=== PATIENT | female | born 1950 | race Caucasian/White ===

== ENCOUNTER 2017-11-03 14:15 | Inpatient (IN) | payer MEDICARE ==
[~2017-11-03] VITALS: Ht 154.9 cm; Wt 64.9 kg
[2017-11-03] MEDS ORDERED: ONDANSETRON PF 4 MG/2 ML VIAL. IV ONE (14:45)
[2017-11-03 14:58] LABS: BASO # 0.1 x10^3/uL (0.0-0.2); BASO % 1 % (0-3); EOS # 0.1 x10^3/uL (0.0-0.7); EOS % 1 % (0-3); HEMOGLOBIN 14.5 g/dL (12.0-15.5); LYMPH # 1.1 x10^3/uL (1.0-4.8); LYMPH % 9 % (24-48); MEAN CORPUSCULAR HEMOGLOBIN 29 pg (25-35); MEAN CORPUSCULAR HGB CONC 33 g/dL (31-37); MEAN CORPUSCULAR VOLUME 87 fL (79-100); MONO # 0.9 x10^3/uL (0.0-1.1); MONO % 8 % (0-9); NEUT # 9.5 x10^3uL (1.8-7.7); NEUT % 81 % (31-73); PLATELET COUNT 381 x10^3/uL (140-400); RED BLOOD COUNT 5.08 x10^6/uL (3.50-5.40); WHITE BLOOD COUNT 11.8 x10^3/uL (4.0-11.0)
--- NOTE | 2017-11-03 15:44 | RAD ---
3 views left knee 11/03/2017 CLINICAL INDICATION: Fall with left knee pain. COMPARISON: None. FINDINGS: No acute fracture or traumatic malalignment. Normal bony alignment. No significant knee joint effusion. There are tricompartmental degenerative changes, greatest to a moderate to severe degree laterally with joint space narrowing and osteophytosis, moderate degree medially and at the patellofemoral articulation. There is diffuse bony demineralization. IMPRESSION: 1. No acute fracture or traumatic malalignment. 2. Tricompartment degenerative changes, greatest to a moderate to severe degree, laterally. 3. Osteopenia. Electronically signed by: Terrence Herron MD (11/03/2017 3:41 PM) [id number]
--- NOTE | 2017-11-03 15:46 | RAD ---
AP pelvis and 2 views left hip 11/03/2017 Clinical indication: Fall with inability to bear weight. COMPARISON: None. FINDINGS: There is a fracture of the inferior left pubic Ramis. There is cortical irregularity at the inferior margin of the left superior pubic ramus. No diastases of the symphysis pubis or sacroiliac articulations, however somewhat limited due to overlying bowel contents. Left femoral head is round without collapse. Mild left hip osteoarthritis. No evidence of acute left hip fracture or dislocation. Multilevel lower lumbar spondylosis. IMPRESSION: 1. Age-indeterminate left inferior. Ramus fracture and possible nondisplaced fracture of the left superior pubic ramus. If further evaluation is clinically indicated, CT pelvis could be obtained. 2. No radiographic evidence of left hip fracture or traumatic malalignment. Electronically signed by: Terrence Herron MD (11/03/2017 3:43 PM) [id number]
[2017-11-03 15:54] LABS: BACTERIA,URINE MOD /HPF (0-FEW); BILIRUBIN,URINE NEG (NEG); CLARITY,URINE HAZY; COLOR,URINE YELLOW; GLUCOSE,URINE NEG (NEG); NITRITE,URINE NEG (NEG); SQUAMOUS EPITHELIAL CELL,UR FEW /LPF; UROBILINOGEN,URINE 0.2 mg/dL (0.2 mg/dL)
--- NOTE | 2017-11-03 15:58 | RAD ---
CT PELVIS WO CONTRAST Indication: FALL 1 WEEK AGO, UNABLE TO BARE WEIGHT Exposure: One or more of the following individualized dose reduction techniques were utilized for this examination: 1. Automated exposure control 2. Adjustment of the mA and/or kV according to patient size 3. Use of iterative reconstruction technique. Comparison: None are available. Contrast: None Fracture of the greater tuberosity. Minimal displacement, measures 7 mm. No evidence of fracture line through the intertrochanteric region or femoral neck. No other acute fracture identified. Chronic fracture deformities of left inferior and left superior pubic rami. Mild degenerative changes at the hips. Sacroiliac joints are intact. Degenerative spondylosis of the partially visualized spine. Urinary bladder is collapsed around a Alex catheter. Mild retained stool identified at the rectum. IMPRESSION: 1. Mildly displaced posttraumatic fracture of the greater trochanter of the left proximal femur. 2. Old fracture deformities of the left superior and inferior pubic rami. Electronically signed by: Boris Cole MD (11/03/2017 3:55 PM) [facility]
[2017-11-03 16:24] LABS: CALCIUM 9.7 mg/dL (8.5-10.1); CREATININE 1.1 mg/dL (0.6-1.0); GFR 49.7; POTASSIUM 3.8 mmol/L (3.5-5.1)
--- NOTE | 2017-11-03 17:09 | PHYS DOC ---
Past History Past Medical History: No Pertinent History Past Surgical History: No Surgical History, Appendectomy Alcohol Use: None Drug Use: None Adult General Chief Complaint Chief Complaint: LOWEREXTREMITY INJURY HPI HPI Patient is a 67 year old F who presents with inability to walk since a fall about a week ago. She states that she has been unable to bear weight on the left leg since that time. Her is in a wheelchair. She states that over the past week she has been scooting around on the floor while holding onto her 's wheelchair. She states that her more or less drags her while she holds onto her wheelchair. She describes urinary frequency and dysuria over the past week as well. She describes a rash in her perineum as well as a rash under the left breast at a been present over the past week. She has no other associated symptoms at this time. She has no other exacerbating or alleviating factors. History is limited due to Sheri being a very poor historian Review of Systems Review of Systems Constitutional: Denies fever or chills [] Eyes: Denies change in visual acuity, redness, or eye pain [] HENT: Denies nasal congestion or sore throat [] Respiratory: Denies cough or shortness of breath [] Cardiovascular: No additional information not addressed in HPI [] GI: Denies abdominal pain, nausea, vomiting, bloody stools or diarrhea [] : Negative except history of present illness Musculoskeletal: Negative except history of present illness Integument: Negative except history of present illness Neurologic: Denies headache, focal weakness or sensory changes [] Endocrine: Denies polyuria or polydipsia [] All other systems were reviewed and found to be within normal limits, except as documented in this note. Family History Family History No pertinent family medical history was reported Current Medications Current Medications Current Medications Medications (Trade) Dose Ordered Sig/Rustam Start Time Stop Time Status Last Admin Dose Admin Fentanyl Citrate (Fentanyl 2ml Vial) 50 mcg 1X ONCE 11/03/17 14:45 11/03/17 14:46 DC 11/03/17 15:54 50 MCG Ondansetron HCl (Zofran) 4 mg 1X ONCE 11/03/17 14:45 11/03/17 14:46 DC 11/03/17 15:53 4 MG Allergies Allergies Allergies Coded Allergies Type Severity Reaction Last Updated Verified No Known Drug Allergies 07/18/16 No Physical Exam Physical Exam Constitutional: Well developed, well nourished, no acute distress, non-toxic appearance. [] HENT: Normocephalic, atraumatic, Eyes: EOMI, conjunctiva normal, no discharge. [] Neck: Normal range of motion, no tenderness, supple, no stridor. [] Cardiovascular:Heart rate regular rhythm, Lungs & Thorax: Bilateral breath sounds clear to auscultation [] Abdomen: Bowel sounds normal, soft, no tenderness, no masses, no pulsatile masses. [] Skin: Moderate excoriation was noted in the perineum diffusely, moderate weeping erythema with satellite lesions noted under the left breast. Back: No tenderness, no CVA tenderness. [] Extremities: no cyanosis, no clubbing, ROM intact, no edema. Tenderness to palpation over the lateral left hip over the greater tuberosity. Pain with range of motion of the left lower extremity in the knee and hip. Patient unable to bear weight limiting evaluation of gait. Neurologic: Alert and oriented X 3, normal motor function, normal sensory function, no focal deficits noted. [] Psychologic: Affect normal, judgement normal, mood normal. [] Current Patient Data Vital Signs Vital Signs Date Time Temp Pulse Resp B/P (MAP) Pulse Ox O2 Delivery O2 Flow Rate FiO2 11/03/17 16:05 90 20 154/88 (110) 98 Room Air 11/03/17 14:15 98.6 Lab Results Laboratory Tests Test 11/03/17 14:42 11/03/17 15:00 11/03/17 15:57 White Blood Count 11.8 x10^3/uL (4.0-11.0) H Red Blood Count 5.08 x10^6/uL (3.50-5.40) Hemoglobin 14.5 g/dL (12.0-15.5) Hematocrit 44.0 % (36.0-47.0) Mean Corpuscular Volume 87 fL (79-100) Mean Corpuscular Hemoglobin 29 pg (25-35) Mean Corpuscular Hemoglobin Concent 33 g/dL (31-37) Red Cell Distribution Width 15.0 % (11.5-14.5) H Platelet Count 381 x10^3/uL (140-400) Neutrophils (%) (Auto) 81 % (31-73) H Lymphocytes (%) (Auto) 9 % (24-48) L Monocytes (%) (Auto) 8 % (0-9) Eosinophils (%) (Auto) 1 % (0-3) Basophils (%) (Auto) 1 % (0-3) Neutrophils # (Auto) 9.5 x10^3uL (1.8-7.7) H Lymphocytes # (Auto) 1.1 x10^3/uL (1.0-4.8) Monocytes # (Auto) 0.9 x10^3/uL (0.0-1.1) Eosinophils # (Auto) 0.1 x10^3/uL (0.0-0.7) Basophils # (Auto) 0.1 x10^3/uL (0.0-0.2) Urine Collection Type U cath Urine Color Yellow Urine Clarity Hazy Urine pH 5.0 Urine Specific [place] 1.020 Urine Protein Neg (NEG-TRACE) Urine Glucose (UA) Neg mg/dL (NEG) Urine Ketones (Stick) Neg mg/dL (NEG) Urine Blood Small (NEG) Urine Nitrite Neg (NEG) Urine Bilirubin Neg (NEG) Urine Urobilinogen Dipstick 0.2 mg/dL (0.2 mg/dL) Urine Leukocyte Esterase Neg (NEG) Urine RBC 11-20 /HPF (0-2) Urine WBC 1-4 /HPF (0-4) Urine Squamous Epithelial Cells Few /LPF Urine Bacteria Mod /HPF (0-FEW) Urine Mucus Mod /LPF Sodium Level 142 mmol/L (136-145) Potassium Level 3.8 mmol/L (3.5-5.1) Chloride Level 104 mmol/L (98-107) Carbon Dioxide Level 24 mmol/L (21-32) Anion Gap 14 (6-14) Blood Urea Nitrogen 28 mg/dL (7-20) H Creatinine 1.1 mg/dL (0.6-1.0) H Estimated GFR (Cockcroft-Gault) 49.7 Glucose Level 93 mg/dL (70-99) Lactic Acid Level 1.2 mmol/L (0.4-2.0) Calcium Level 9.7 mg/dL (8.5-10.1) Creatine Kinase 29 U/L (26-192) EKG EKG [] Radiology/Procedures Radiology/Procedures [] Impressions: CT pelvis without contrast Fracture of the greater tuberosity. Minimal displacement, measures 7 mm. No evidence of fracture line through the intertrochanteric region or femoral neck. No other acute fracture identified. Chronic fracture deformities of left inferior and left superior pubic rami. Mild degenerative changes at the hips. Sacroiliac joints are intact. Degenerative spondylosis of the partially visualized spine. Urinary bladder is collapsed around a Alex catheter. Mild retained stool identified at the rectum. IMPRESSION: 1. Mildly displaced posttraumatic fracture of the greater trochanter of the left proximal femur. 2. Old fracture deformities of the left superior and inferior pubic rami. L hip xray IMPRESSION: 1. Age-indeterminate left inferior. Ramus fracture and possible nondisplaced fracture of the left superior pubic ramus. If further evaluation is clinically indicated, CT pelvis could be obtained. 2. No radiographic evidence of left hip fracture or traumatic malalignment. L knee xray IMPRESSION: No acute disease Course & Med Decision Making Course & Med Decision Making Pertinent Labs and Imaging studies reviewed. (See chart for details) [] Dragon Disclaimer Dragon Disclaimer This electronic medical record was generated, in whole or in part, using a voice recognition dictation system. Departure Departure: Impression: Primary Impression: Femur fracture, left Additional Impressions: UTI (urinary tract infection) Tinea corporis Disposition: ADMITTED INPATIENT Condition: STABLE Referrals: PCP,NO (PCP) Problem Qualifiers Primary Impression: Femur fracture, left Encounter type: initial encounter Femur location: greater trochanter Fracture type: closed Fracture alignment: nondisplaced Qualified Codes: S72.115A - Nondisplaced fracture of greater trochanter of left femur, initial encounter for closed fracture Additional Impressions: UTI (urinary tract infection) Urinary tract infection type: site unspecified Hematuria presence: with hematuria Qualified Codes: N39.0 - Urinary tract infection, site not specified ; R31.9 - Hematuria, unspecified AMRIK EDWARD MD Nov 03, 2017 17:09
[2017-11-03] MEDS ORDERED: cefTRIAXone IV Push 1 GM VIAL. IVP ONE (17:15)
[2017-11-03] MEDS ORDERED: ONDANSETRON PF 4 MG/2 ML VIAL. IV PRN (17:15)
[2017-11-03 18:24] VITALS: BP 140/82
[2017-11-03 23:00] VITALS: BP 144/77
[2017-11-03] MEDS: traMADol 50 MG TABLET PO PRN (23:43)
[2017-11-04 03:00] VITALS: BP 135/81
[2017-11-04 06:40] LABS: BASO # 0.1 x10^3/uL (0.0-0.2); BASO % 1 % (0-3); EOS # 0.2 x10^3/uL (0.0-0.7); EOS % 3 % (0-3); HEMATOCRIT 38.2 % (36.0-47.0); HEMOGLOBIN 12.6 g/dL (12.0-15.5); LYMPH # 1.3 x10^3/uL (1.0-4.8); LYMPH % 14 % (24-48); MEAN CORPUSCULAR HEMOGLOBIN 29 pg (25-35); MEAN CORPUSCULAR HGB CONC 33 g/dL (31-37); MEAN CORPUSCULAR VOLUME 87 fL (79-100); MONO # 0.8 x10^3/uL (0.0-1.1); MONO % 9 % (0-9); NEUT # 6.6 x10^3uL (1.8-7.7); NEUT % 73 % (31-73); PLATELET COUNT 359 x10^3/uL (140-400); RED CELL DISTRIBUTION WIDTH 14.8 % (11.5-14.5)
[2017-11-04 06:47] LABS: CALCIUM 9.3 mg/dL (8.5-10.1); CREATININE 0.9 mg/dL (0.6-1.0); GFR 62.6; POTASSIUM 3.2 mmol/L (3.5-5.1)
[2017-11-04 07:45] VITALS: BP 99/60
[2017-11-04] MEDS ORDERED: POTASSIUM CHLORIDE 20 MEQ TABLET.ER. PO ONE (08:00)
[2017-11-04 09:01] VITALS: BP 134/78
--- NOTE | 2017-11-04 09:56 | PDOC1 ---
History of Present Illness Reason for Visit: Fall History of Present Illness Pt states that she does not see a regular doctor, and takes no medications. She states she was rearranging the furniture in her living room about 2 weeks ago when she fell and injured her left leg. She says she thought she could "push through it," but eventually wound up not being able to bear weight at all. She has spent the past few days being "scooted around" by her , who is in a wheelchair. She finally came in last night as she could not stand it anymore. She denies fever, CP, SOA, bloody stools, dizziness, vomiting, diarrhea, numbness, or sore throat. She does not get regular medical screenings. She does not take medications regularly. She has never had surgery. Chief Complaint: LOWEREXTREMITY INJURY Allergies: Coded Allergies: No Known Drug Allergies (Unverified , 07/18/16) Past Medical History Cardiac: No pertinent hx GI: No pertinent hx Musculoskeletal: No pertinent hx Past Surgical History: No pertinent history Family History: No pertinent hx Past Social History Smoke: No Alcohol: none Drugs: None Lives: with Family Review of Systems Review Of Systems Fourteen system , review of systems has been reviewed. See HPI for pertinent positives and negative responses, other smith all other systems are negative, non pertinent or non contributory Allergies: Coded Allergies: No Known Drug Allergies (Unverified , 07/18/16) Medications Current Medications Fentanyl Citrate (Fentanyl 2ml Vial) 50 mcg 1X ONCE IV Last administered on at 15:54; Start 11/03/17 at 14:45; Stop 11/03/17 at 14:46; Status DC Ondansetron HCl (Zofran) 4 mg 1X ONCE IV Last administered on 11/03/17at 15:53 ; Start 11/03/17 at 14:45; Stop 11/03/17 at 14:46; Status DC Ceftriaxone Sodium 1 gm/ Sodium Chloride 50 ml @ 100 mls/hr 1X ONCE IV ; Start 11/03/17 at 17:00; Stop 11/03/17 at 17:29; Status UNV Ceftriaxone Sodium (Rocephin) 1 gm 1X ONCE IVP Last administered on 11/03/17at 17:30; Start 11/03/17 at 17:15; Stop 3/21/18 at 17:16; Status DC Ondansetron HCl (Zofran) 4 mg PRN Q4HRS PRN IV NAUSEA/VOMITING; Start 11/03/17 at 17:15; Stop 11/04/17 at 17:14 Tramadol HCl (Ultram) 50 mg PRN Q6HRS PRN PO PAIN Last administered on at 23:43; Start 11/03/17 at 23:15 Potassium Chloride (Klor-Con) 40 meq 1X ONCE PO Last administered on at 08:35; Start 11/04/17 at 08:00; Stop 11/04/17 at 08:01; Status DC Active Scripts Active Reported No Known Medications Prior To Admisstion (Info) Each 1 Each Exam Vital Signs Vital Signs Date Time Temp Pulse Resp B/P (MAP) Pulse Ox O2 Delivery O2 Flow Rate FiO2 11/04/17 09:01 68 20 134/78 (96) 98 Room Air 11/04/17 03:00 96.0 11/03/17 18:24 98.2 General Appearance: Alert, Oriented X3, Cooperative, No acute distress, Other ( [place]) HEENT: Atraumatic, PERRLA, EOMI, Mucous membr. moist/pink, Other (Neck supple, no JVD, no LAD) Respiratory: Clear to auscultation, Normal air movement Heart: Regular rate, Normal S1, Normal S2, No murmurs Abdominal: Normal bowel sounds, Soft, No tenderness, No hepatospenomegaly, No masses Extremities: No edema, Normal pulses, No tenderness/swelling, Other (ROM diminished in LLE) Skin: No rashes (Candidal intertrigo under pannus and left breast. No left breast mass was palpated w/ nurse present.), No breakdown Neuro: Normal speech, Strength at 5/5 X4 ext, Normal tone, Cranial nerves 3-12 NL Psych/Mental Status: Mental status NL, Mood NL Assessment/Plan Assessment/Plan 1. Subacute mildly displaced left greater tuberosity fracture: NWB x 3 weeks minimum. Will need to d/w ortho. Pt will need placement. PT/OT. Pain control. 2. UTI: Cont Rocephin. 3. DVT proph: Heparin. COURSE Allergies Coded Allergies Type Severity Reaction Last Updated Verified No Known Drug Allergies 07/18/16 No Laboratory Tests Test 11/03/17 14:42 11/03/17 15:00 11/03/17 15:57 11/04/17 06:07 White Blood Count 11.8 x10^3/uL (4.0-11.0) 9.0 x10^3/uL (4.0-11.0) Red Blood Count 5.08 x10^6/uL (3.50-5.40) 4.40 x10^6/uL (3.50-5.40) Hemoglobin 14.5 g/dL (12.0-15.5) 12.6 g/dL (12.0-15.5) Hematocrit 44.0 % (36.0-47.0) 38.2 % (36.0-47.0) Mean Corpuscular Volume 87 fL (79-100) 87 fL (79-100) Mean Corpuscular Hemoglobin 29 pg (25-35) 29 pg (25-35) Mean Corpuscular Hemoglobin Concent 33 g/dL (31-37) 33 g/dL (31-37) Red Cell Distribution Width 15.0 % (11.5-14.5) 14.8 % (11.5-14.5) Platelet Count 381 x10^3/uL (140-400) 359 x10^3/uL (140-400) Neutrophils (%) (Auto) 81 % (31-73) 73 % (31-73) Lymphocytes (%) (Auto) 9 % (24-48) 14 % (24-48) Monocytes (%) (Auto) 8 % (0-9) 9 % (0-9) Eosinophils (%) (Auto) 1 % (0-3) 3 % (0-3) Basophils (%) (Auto) 1 % (0-3) 1 % (0-3) Neutrophils # (Auto) 9.5 x10^3uL (1.8-7.7) 6.6 x10^3uL (1.8-7.7) Lymphocytes # (Auto) 1.1 x10^3/uL (1.0-4.8) 1.3 x10^3/uL (1.0-4.8) Monocytes # (Auto) 0.9 x10^3/uL (0.0-1.1) 0.8 x10^3/uL (0.0-1.1) Eosinophils # (Auto) 0.1 x10^3/uL (0.0-0.7) 0.2 x10^3/uL (0.0-0.7) Basophils # (Auto) 0.1 x10^3/uL (0.0-0.2) 0.1 x10^3/uL (0.0-0.2) Urine Collection Type U cath Urine Color Yellow Urine Clarity Hazy Urine pH 5.0 Urine Specific [place] 1.020 Urine Protein Neg (NEG-TRACE) Urine Glucose (UA) Neg mg/dL (NEG) Urine Ketones (Stick) Neg mg/dL (NEG) Urine Blood Small (NEG) Urine Nitrite Neg (NEG) Urine Bilirubin Neg (NEG) Urine Urobilinogen Dipstick 0.2 mg/dL (0.2 mg/dL) Urine Leukocyte Esterase Neg (NEG) Urine RBC 11-20 /HPF (0-2) Urine WBC 1-4 /HPF (0-4) Urine Squamous Epithelial Cells Few /LPF Urine Bacteria Mod /HPF (0-FEW) Urine Mucus Mod /LPF Sodium Level 142 mmol/L (136-145) 141 mmol/L (136-145) Potassium Level 3.8 mmol/L (3.5-5.1) 3.2 mmol/L (3.5-5.1) Chloride Level 104 mmol/L (98-107) 107 mmol/L (98-107) Carbon Dioxide Level 24 mmol/L (21-32) 24 mmol/L (21-32) Anion Gap 14 (6-14) 10 (6-14) Blood Urea Nitrogen 28 mg/dL (7-20) 22 mg/dL (7-20) Creatinine 1.1 mg/dL (0.6-1.0) 0.9 mg/dL (0.6-1.0) Estimated GFR (Cockcroft-Gault) 49.7 62.6 Glucose Level 93 mg/dL (70-99) 81 mg/dL (70-99) Lactic Acid Level 1.2 mmol/L (0.4-2.0) Calcium Level 9.7 mg/dL (8.5-10.1) 9.3 mg/dL (8.5-10.1) Creatine Kinase 29 U/L (26-192) Current Medications Medications (Trade) Dose Ordered Sig/Rustam Route PRN Reason Start Time Stop Time Status Last Admin Dose Admin Fentanyl Citrate (Fentanyl 2ml Vial) 50 mcg 1X ONCE IV 11/03/17 14:45 11/03/17 14:46 DC 11/03/17 15:54 Ondansetron HCl (Zofran) 4 mg 1X ONCE IV 11/03/17 14:45 11/03/17 14:46 DC 11/03/17 15:53 Ceftriaxone Sodium 1 gm/ Sodium Chloride 50 ml @ 100 mls/hr 1X ONCE IV 11/03/17 17:00 11/03/17 17:29 UNV Ceftriaxone Sodium (Rocephin) 1 gm 1X ONCE IVP 11/03/17 17:15 11/03/17 17:16 DC 11/03/17 17:30 Ondansetron HCl (Zofran) 4 mg PRN Q4HRS PRN IV NAUSEA/VOMITING 11/03/17 17:15 11/04/17 17:14 Tramadol HCl (Ultram) 50 mg PRN Q6HRS PRN PO PAIN 11/03/17 23:15 11/03/17 23:43 Potassium Chloride (Klor-Con) 40 meq 1X ONCE PO 11/04/17 08:00 11/04/17 08:01 DC 11/04/17 08:35 I & O 11/04/17 00:00 Intake Total 720 ml Balance 720 ml Vital Signs Date Time Temp Pulse Resp B/P (MAP) Pulse Ox O2 Delivery O2 Flow Rate FiO2 11/04/17 09:01 68 20 134/78 (96) 98 Room Air 11/04/17 03:00 96.0 11/03/17 18:[address] PELVIS WO CONTRAST Indication: FALL 1 WEEK AGO, UNABLE TO BARE WEIGHT Exposure: One or more of the following individualized dose reduction techniques were utilized for this examination: 1. Automated exposure control 2. Adjustment of the mA and/or kV according to patient size 3. Use of iterative reconstruction technique. Comparison: None are available. Contrast: None Fracture of the greater tuberosity. Minimal displacement, measures 7 mm. No evidence of fracture line through the intertrochanteric region or femoral neck. No other acute fracture identified. Chronic fracture deformities of left inferior and left superior pubic rami. Mild degenerative changes at the hips. Sacroiliac joints are intact. Degenerative spondylosis of the partially visualized spine. Urinary bladder is collapsed around a Alex catheter. Mild retained stool identified at the rectum. IMPRESSION: 1. Mildly displaced posttraumatic fracture of the greater trochanter of the left proximal femur. 2. Old fracture deformities of the left superior and inferior pubic rami. 3 views left knee 11/03/2017 CLINICAL INDICATION: Fall with left knee pain. COMPARISON: None. FINDINGS: No acute fracture or traumatic malalignment. Normal bony alignment. No significant knee joint effusion. There are tricompartmental degenerative changes, greatest to a moderate to severe degree laterally with joint space narrowing and osteophytosis, moderate degree medially and at the patellofemoral articulation. There is diffuse bony demineralization. IMPRESSION: 1. No acute fracture or traumatic malalignment. 2. Tricompartment degenerative changes, greatest to a moderate to severe degree, laterally. 3. Osteopenia. AP pelvis and 2 views left hip 11/03/2017 Clinical indication: Fall with inability to bear weight. COMPARISON: None. FINDINGS: There is a fracture of the inferior left pubic Ramis. There is cortical irregularity at the inferior margin of the left superior pubic ramus. No diastases of the symphysis pubis or sacroiliac articulations, however somewhat limited due to overlying bowel contents. Left femoral head is round without collapse. Mild left hip osteoarthritis. No evidence of acute left hip fracture or dislocation. Multilevel lower lumbar spondylosis. IMPRESSION: 1. Age-indeterminate left inferior. Ramus fracture and possible nondisplaced fracture of the left superior pubic ramus. If further evaluation is clinically indicated, CT pelvis could be obtained. 2. No radiographic evidence of left hip fracture or traumatic malalignment. CHINA POLO MD Nov 04, 2017 09:56
[2017-11-04] MEDS: traMADol 50 MG TABLET PO PRN ×2 (10:38→19:04)
[2017-11-04 15:08] VITALS: BP 168/78
[2017-11-04] MEDS: cefTRIAXone IV Push 1 GM VIAL. IVP SCH (19:56)
[2017-11-04] MEDS: NYSTATIN 100,000 UNIT/GM TOPICAL CREAM 15GM TUBE. TP SCH (21:24)
[2017-11-04] MEDS: LACTOBACILLUS RHAMNOSUS GG 1 CAPSULE. PO SCH (21:24)
[2017-11-04] MEDS: HEPARIN PF for SUB-Q USE 5,000 UNIT/0.5 ML VIAL. SQ SCH (21:25)
[2017-11-04 22:15] VITALS: BP 127/73
[2017-11-05 06:46] LABS: CALCIUM 9.3 mg/dL (8.5-10.1); CREATININE 0.9 mg/dL (0.6-1.0); GFR 62.6; POTASSIUM 3.7 mmol/L (3.5-5.1)
[2017-11-05 08:00] VITALS: BP 160/82
[2017-11-05] MEDS: LACTOBACILLUS RHAMNOSUS GG 1 CAPSULE. PO SCH ×2 (08:14→20:11)
[2017-11-05] MEDS: traMADol 50 MG TABLET PO PRN ×2 (08:14→17:52)
[2017-11-05] MEDS: HEPARIN PF for SUB-Q USE 5,000 UNIT/0.5 ML VIAL. SQ SCH ×2 (08:21→20:13)
[2017-11-05] MEDS: NYSTATIN 100,000 UNIT/GM TOPICAL CREAM 15GM TUBE. TP SCH ×2 (08:23→20:20)
--- NOTE | 2017-11-05 15:07 | PDOC ---
PROGRESS NOTES Diagnosis Problem Assessment 1. Subacute mildly displaced (7 mm) left greater tuberosity fracture: NWB x 3 weeks minimum. Will need to d/w ortho. Pt will need placement. PT/OT. Pain control. 2. UTI: Cont Rocephin. 3. DVT proph: Heparin. 4. Disp: Pt will ultimately need SNF for rehab as there is no way she can adequately get around at home, and would be at high risk for requiring surgery. Problems: Plan of Care: see other orders Subjective Pt feeling ok. States she is working w/ PT on not bearing weight. Denies fever , diarrhea, dizziness, SOA, chest pain, or leg swelling. Pt has been talking to her about possibly going to a rehab facility for rehab. Objective Vital Signs Date Time Temp Pulse Resp B/P (MAP) Pulse Ox O2 Delivery O2 Flow Rate FiO2 11/05/17 09:39 94 Room Air 11/05/17 08:00 71 160/82 (108) 11/04/17 22:15 20 11/04/17 03:00 11/03/17 18:24 98.2 Intake and Output 11/05/17 07:00 Intake Total 1100 ml Output Total 400 ml Balance 700 ml Intake Oral 1100 ml Output Urine Total 400 ml # Voids 2 Heart: Regular rate, Normal S1, Normal S2, No murmurs Extremities: No edema General: Alert, Oriented X3, Cooperative, No acute distress HEENT: PERRLA, EOMI, Mucous membr. moist/pink Lungs: Clear to auscultation, Normal air movement Neck: No JVD, No LAD Neuro: Normal tone, Cranial nerves 3-12 NL Psych/Mental Status: Mental status NL Review of Relevant I have reviewed the following items angel (where applicable) has been applied. Labs Laboratory Tests Test 11/03/17 15:00 11/03/17 15:57 11/03/17 18:30 11/04/17 06:07 Urine Collection Type U cath Urine Color Yellow Urine Clarity Hazy Urine pH 5.0 Urine Specific Mustang 1.020 Urine Protein Neg (NEG-TRACE) Urine Glucose (UA) Neg mg/dL (NEG) Urine Ketones (Stick) Neg mg/dL (NEG) Urine Blood Small (NEG) Urine Nitrite Neg (NEG) Urine Bilirubin Neg (NEG) Urine Urobilinogen Dipstick 0.2 mg/dL (0.2 mg/dL) Urine Leukocyte Esterase Neg (NEG) Urine RBC 11-20 /HPF (0-2) Urine WBC 1-4 /HPF (0-4) Urine Squamous Epithelial Cells Few /LPF Urine Bacteria Mod /HPF (0-FEW) Urine Mucus Mod /LPF Sodium Level 142 mmol/L (136-145) 141 mmol/L (136-145) Potassium Level 3.8 mmol/L (3.5-5.1) 3.2 mmol/L (3.5-5.1) Chloride Level 104 mmol/L (98-107) 107 mmol/L (98-107) Carbon Dioxide Level 24 mmol/L (21-32) 24 mmol/L (21-32) Anion Gap 14 (6-14) 10 (6-14) Blood Urea Nitrogen 28 mg/dL (7-20) 22 mg/dL (7-20) Creatinine 1.1 mg/dL (0.6-1.0) 0.9 mg/dL (0.6-1.0) Estimated GFR (Cockcroft-Gault) 49.7 62.6 Glucose Level 93 mg/dL (70-99) 81 mg/dL (70-99) Lactic Acid Level 1.2 mmol/L (0.4-2.0) Calcium Level 9.7 mg/dL (8.5-10.1) 9.3 mg/dL (8.5-10.1) Creatine Kinase 29 U/L (26-192) Nasal Screen MRSA (PCR) Negative (Negative) White Blood Count 9.0 x10^3/uL (4.0-11.0) Red Blood Count 4.40 x10^6/uL (3.50-5.40) Hemoglobin 12.6 g/dL (12.0-15.5) Hematocrit 38.2 % (36.0-47.0) Mean Corpuscular Volume 87 fL (79-100) Mean Corpuscular Hemoglobin 29 pg (25-35) Mean Corpuscular Hemoglobin Concent 33 g/dL (31-37) Red Cell Distribution Width 14.8 % (11.5-14.5) Platelet Count 359 x10^3/uL (140-400) Neutrophils (%) (Auto) 73 % (31-73) Lymphocytes (%) (Auto) 14 % (24-48) Monocytes (%) (Auto) 9 % (0-9) Eosinophils (%) (Auto) 3 % (0-3) Basophils (%) (Auto) 1 % (0-3) Neutrophils # (Auto) 6.6 x10^3uL (1.8-7.7) Lymphocytes # (Auto) 1.3 x10^3/uL (1.0-4.8) Monocytes # (Auto) 0.8 x10^3/uL (0.0-1.1) Eosinophils # (Auto) 0.2 x10^3/uL (0.0-0.7) Basophils # (Auto) 0.1 x10^3/uL (0.0-0.2) Test 11/05/17 05:52 Sodium Level 141 mmol/L (136-145) Potassium Level 3.7 mmol/L (3.5-5.1) Chloride Level 105 mmol/L (98-107) Carbon Dioxide Level 28 mmol/L (21-32) Anion Gap 8 (6-14) Blood Urea Nitrogen 19 mg/dL (7-20) Creatinine 0.9 mg/dL (0.6-1.0) Estimated GFR (Cockcroft-Gault) 62.6 Glucose Level 79 mg/dL (70-99) Calcium Level 9.3 mg/dL (8.5-10.1) Microbiology 11/03/17 Blood Culture - Preliminary, Resulted NO GROWTH AFTER 1 DAY Medications Current Medications Fentanyl Citrate (Fentanyl 2ml Vial) 50 mcg 1X ONCE IV Last administered on at 15:54; Start 11/03/17 at 14:45; Stop 11/03/17 at 14:46; Status DC Ondansetron HCl (Zofran) 4 mg 1X ONCE IV Last administered on 11/03/17at 15:53 ; Start 11/03/17 at 14:45; Stop 11/03/17 at 14:46; Status DC Ceftriaxone Sodium 1 gm/ Sodium Chloride 50 ml @ 100 mls/hr 1X ONCE IV ; Start 11/03/17 at 17:00; Stop 11/03/17 at 17:29; Status UNV Ceftriaxone Sodium (Rocephin) 1 gm 1X ONCE IVP Last administered on 11/03/17at 17:30; Start 11/03/17 at 17:15; Stop 11/03/17 at 17:16; Status DC Ondansetron HCl (Zofran) 4 mg PRN Q4HRS PRN IV NAUSEA/VOMITING; Start 11/03/17 at 17:15; Stop 11/04/17 at 17:14; Status DC Tramadol HCl (Ultram) 50 mg PRN Q6HRS PRN PO PAIN Last administered on at 08:14; Start 11/03/17 at 23:15 Potassium Chloride (Klor-Con) 40 meq 1X ONCE PO Last administered on at 08:35; Start 11/04/17 at 08:00; Stop 11/04/17 at 08:01; Status DC Heparin Sodium (Porcine) (Heparin Sq) 5,000 unit Q12HR SQ Last administered on 11/05/17at 08:21; Start 11/04/17 at 21:00 Nystatin (Mycostatin) 1 eric BID TP Last administered on 11/04/17at 21:24; Start 11/04/17 at 21:00 Ceftriaxone Sodium 1 gm/ Sodium Chloride 50 ml @ 100 mls/hr Q24H IV ; Start at 18:45; Stop 11/04/17 at 18:46; Status DC Ceftriaxone Sodium (Rocephin) 1 gm Q24H IVP Last administered on 11/04/17at 19: 56; Start 11/04/17 at 19:00 Lactobacillus Rhamnosus (Culturelle) 1 cap BID PO Last administered on at 08:14; Start 11/04/17 at 21:00 Active Scripts Active Reported No Known Medications Prior To Admisstion (Info) Each 1 Each Vitals/I & O Vital Sign - Last 24 Hours 11/04/17 11/04/17 11/04/17 11/04/17 15:08 19:04 20:00 20:04 Pulse 78 Resp 20 18 B/P (MAP) 168/78 (108) Pulse Ox 98 O2 Delivery Room Air Room Air Room Air 11/04/17 11/05/17 11/05/17 11/05/17 22:15 08:00 08:00 09:39 Pulse 64 71 Resp 20 B/P (MAP) 127/73 (91) 160/82 (108) Pulse Ox 97 94 94 O2 Delivery Room Air Room Air Room Air Room Air Intake and Output 11/04/17 11/04/17 11/05/17 15:00 23:00 07:00 Intake Total 980 ml 120 ml Output Total 400 ml Balance 580 ml 120 ml CHINA POLO MD Nov 05, 2017 15:07
[2017-11-05 17:49] VITALS: BP 149/82
[2017-11-05] MEDS: cefTRIAXone IV Push 1 GM VIAL. IVP SCH (18:03)
[2017-11-05 23:43] VITALS: BP 132/75
[2017-11-06] MEDS: traMADol 50 MG TABLET PO PRN ×2 (05:04→14:17)
[2017-11-06 05:31] VITALS: BP 162/83
[2017-11-06] MEDS: LACTOBACILLUS RHAMNOSUS GG 1 CAPSULE. PO SCH ×2 (08:18→20:29)
[2017-11-06] MEDS: HEPARIN PF for SUB-Q USE 5,000 UNIT/0.5 ML VIAL. SQ SCH ×2 (08:24→20:35)
[2017-11-06] MEDS: NYSTATIN 100,000 UNIT/GM TOPICAL CREAM 15GM TUBE. TP SCH ×2 (08:25→20:36)
[2017-11-06 10:22] VITALS: BP 146/86
--- NOTE | 2017-11-06 12:13 | PDOC ---
PROGRESS NOTES Assessment 1. Subacute mildly displaced (7 mm) left greater tuberosity fracture: NWB x 3 weeks minimum. Pt improving significantly. Needs placement to complete rehab. Hoping for transfer Wednesday. Cont PT and pain meds. 2. UTI: Cont Rocephin. 3. DVT proph: Heparin. 4. Constipation: Start Colace BID 5. Candidal intertrigo: Cont nystatin 6. Disp: Pt will ultimately need SNF for rehab as there is no way she can adequately get around at home, and would be at high risk for requiring surgery. Problems: Plan of Care: see other orders Subjective Pt states her pain in the leg is doing much better. Says she has not had a BM in 3-4 days. Denies vomiting, abd pain, bleeding, SOA, chest pain, fever, blood in urine. Says rash under breast is improving. Objective Vital Signs Date Time Temp Pulse Resp B/P (MAP) Pulse Ox O2 Delivery O2 Flow Rate FiO2 11/06/17 10:22 98.2 65 18 146/86 (106) 94 Room Air 11/04/17 03:00 Intake and Output 11/06/17 07:00 Intake Total 250 ml Balance 250 ml Intake Oral 250 ml # Voids 1 Abdomen: Soft, No tenderness, No hepatospenomegaly, No masses Heart: Regular rate, Normal S1, Normal S2, No murmurs Extremities: No edema, No tenderness/swelling General: Alert, Oriented X3, Cooperative, No acute distress HEENT: Atraumatic, PERRLA, EOMI, Mucous membr. moist/pink Lungs: Clear to auscultation, Normal air movement Neck: No JVD Neuro: Normal tone, Cranial nerves 3-12 NL Psych/Mental Status: Mental status NL, Mood NL Review of Relevant I have reviewed the following items angel (where applicable) has been applied. Labs Laboratory Tests Test 11/05/17 05:52 Sodium Level 141 mmol/L (136-145) Potassium Level 3.7 mmol/L (3.5-5.1) Chloride Level 105 mmol/L (98-107) Carbon Dioxide Level 28 mmol/L (21-32) Anion Gap 8 (6-14) Blood Urea Nitrogen 19 mg/dL (7-20) Creatinine 0.9 mg/dL (0.6-1.0) Estimated GFR (Cockcroft-Gault) 62.6 Glucose Level 79 mg/dL (70-99) Calcium Level 9.3 mg/dL (8.5-10.1) Microbiology 11/03/17 Blood Culture - Preliminary, Resulted NO GROWTH AFTER 2 DAYS Medications Current Medications Fentanyl Citrate (Fentanyl 2ml Vial) 50 mcg 1X ONCE IV Last administered on at 15:54; Start 11/03/17 at 14:45; Stop 11/03/17 at 14:46; Status DC Ondansetron HCl (Zofran) 4 mg 1X ONCE IV Last administered on 11/03/17at 15:53 ; Start 11/03/17 at 14:45; Stop 11/03/17 at 14:46; Status DC Ceftriaxone Sodium 1 gm/ Sodium Chloride 50 ml @ 100 mls/hr 1X ONCE IV ; Start 11/03/17 at 17:00; Stop 11/03/17 at 17:29; Status UNV Ceftriaxone Sodium (Rocephin) 1 gm 1X ONCE IVP Last administered on 11/03/17at 17:30; Start 11/03/17 at 17:15; Stop 11/03/17 at 17:16; Status DC Ondansetron HCl (Zofran) 4 mg PRN Q4HRS PRN IV NAUSEA/VOMITING; Start 11/03/17 at 17:15; Stop 11/04/17 at 17:14; Status DC Tramadol HCl (Ultram) 50 mg PRN Q6HRS PRN PO PAIN Last administered on at 05:04; Start 11/03/17 at 23:15 Potassium Chloride (Klor-Con) 40 meq 1X ONCE PO Last administered on at 08:35; Start 11/04/17 at 08:00; Stop 11/04/17 at 08:01; Status DC Heparin Sodium (Porcine) (Heparin Sq) 5,000 unit Q12HR SQ Last administered on 11/06/17at 08:24; Start 11/04/17 at 21:00 Nystatin (Mycostatin) 1 eric BID TP Last administered on 11/06/17at 08:25; Start 11/04/17 at 21:00 Ceftriaxone Sodium 1 gm/ Sodium Chloride 50 ml @ 100 mls/hr Q24H IV ; Start at 18:45; Stop 11/04/17 at 18:46; Status DC Ceftriaxone Sodium (Rocephin) 1 gm Q24H IVP Last administered on 11/05/17at 18: 03; Start 11/04/17 at 19:00 Lactobacillus Rhamnosus (Culturelle) 1 cap BID PO Last administered on at 08:18; Start 11/04/17 at 21:00 Active Scripts Active Reported No Known Medications Prior To Admisstion (Info) Each 1 Each Vitals/I & O Vital Sign - Last 24 Hours 11/05/17 11/05/17 11/05/17 11/05/17 17:49 17:52 20:00 23:43 Temp 97.7 97.6 Pulse 89 68 Resp 18 20 B/P (MAP) 149/82 (104) 132/75 (94) Pulse Ox 97 97 94 O2 Delivery Room Air Room Air Room Air 11/06/17 11/06/17 11/06/17 11/06/17 05:04 05:31 06:27 08:00 Temp 98.2 Pulse 82 Resp 18 18 18 B/P (MAP) 162/83 (109) Pulse Ox 94 98 98 O2 Delivery Room Air Room Air Room Air 11/06/17 10:22 Temp 98.2 Pulse 65 Resp 18 B/P (MAP) 146/86 (106) Pulse Ox 94 O2 Delivery Room Air Intake and Output 11/05/17 11/05/17 11/06/17 15:00 23:00 07:00 Intake Total 100 ml 150 ml Balance 100 ml 150 ml CHINA POLO MD Nov 06, 2017 12:13
[2017-11-06 14:39] VITALS: BP 156/88
[2017-11-06] MEDS ORDERED: HYDROcodone/APAP 5/325MG 1 TAB TABLET PO PRN (15:30)
--- NOTE | 2017-11-06 16:19 | RAD ---
Exam performed: One view pelvis and 2 views left hip HISTORY: Patient fell 2 weeks ago, increasing pain to the left hip. DATE OF SERVICE: 11/06/2017. Comparison made to a CT pelvis from 11/03/2017. FINDINGS: Normal alignment of both hip joints is preserved. Previously seen acute fracture left greater trochanter is less well seen on the x-rays. There is a nonacute fracture left superior and inferior pubic rami. No soft tissue foreign body. IMPRESSION: Fracture greater trochanter seen on the CT scan is less well seen on the current exam. Nonacute fracture left superior and inferior pubic rami. Electronically signed by: Areli Leyva MD (11/06/2017 4:16 PM) [facility]
[2017-11-06] MEDS: cefTRIAXone IV Push 1 GM VIAL. IVP SCH (17:58)
[2017-11-06 19:53] VITALS: BP 144/88
[2017-11-06] MEDS: DOCUSATE SODIUM 100 MG CAPSULE PO SCH (20:29)
[2017-11-07] MEDS: traMADol 50 MG TABLET PO PRN ×2 (05:28→16:48)
[2017-11-07 06:36] VITALS: BP 157/86
[2017-11-07] MEDS: NYSTATIN 100,000 UNIT/GM TOPICAL CREAM 15GM TUBE. TP SCH ×2 (08:11→20:15)
[2017-11-07] MEDS: DOCUSATE SODIUM 100 MG CAPSULE PO SCH ×2 (08:11→20:13)
[2017-11-07] MEDS: LACTOBACILLUS RHAMNOSUS GG 1 CAPSULE. PO SCH ×2 (08:11→20:13)
[2017-11-07] MEDS: HEPARIN PF for SUB-Q USE 5,000 UNIT/0.5 ML VIAL. SQ SCH ×2 (08:14→20:13)
--- NOTE | 2017-11-07 09:29 | PDOC ---
PROGRESS NOTES Assessment 1. Subacute mildly displaced (7 mm) left greater tuberosity fracture: NWB x 3 weeks minimum. Pt improving significantly. Needs placement to complete rehab. Hoping for transfer Wednesday. Increased pain yesterday has resolved, xray unchanged, will d/c hydrocodone. 2. UTI: Cont Rocephin. Will d/c at discharge. 3. DVT proph: Heparin. 4. Constipation: Colace. 5. Candidal intertrigo: Cont nystatin 6. Disp: Pt will ultimately need SNF for rehab as there is no way she can adequately get around at home, and would be at high risk for requiring surgery. Problems: Plan of Care: see other orders Subjective Pt states her pain is doing much better today, rates it at 08/25. Says she has not been taking the hydrocodone, only tramadol. Says she is otherwise doing well and looking forward to going to SNF tomorrow. Objective Vital Signs Date Time Temp Pulse Resp B/P (MAP) Pulse Ox O2 Delivery O2 Flow Rate FiO2 11/07/17 08:00 Room Air 11/07/17 06:36 98.0 75 18 157/86 (109) 100 11/04/17 03:00 Intake and Output 11/07/17 07:00 Intake Total 960 ml Output Total 300 ml Balance 660 ml Intake Oral 960 ml Output Urine Total 300 ml # Voids 1 Abdomen: Soft, No tenderness, No hepatospenomegaly, No masses Heart: Regular rate, Normal S1, Normal S2, No murmurs Extremities: No edema, Normal pulses General: Alert, Oriented X3, Cooperative, No acute distress HEENT: PERRLA, EOMI, Mucous membr. moist/pink Lungs: Clear to auscultation, Normal air movement Neck: No JVD Neuro: Normal speech, Normal tone, Cranial nerves 3-12 NL Psych/Mental Status: Mental status NL, Mood NL Skin: No rashes Review of Relevant I have reviewed the following items angel (where applicable) has been applied. Labs Microbiology 11/03/17 Blood Culture - Preliminary, Resulted NO GROWTH AFTER 3 DAYS Medications Current Medications Fentanyl Citrate (Fentanyl 2ml Vial) 50 mcg 1X ONCE IV Last administered on at 15:54; Start 11/03/17 at 14:45; Stop 11/03/17 at 14:46; Status DC Ondansetron HCl (Zofran) 4 mg 1X ONCE IV Last administered on 11/03/17at 15:53 ; Start 11/03/17 at 14:45; Stop 11/03/17 at 14:46; Status DC Ceftriaxone Sodium 1 gm/ Sodium Chloride 50 ml @ 100 mls/hr 1X ONCE IV ; Start 11/03/17 at 17:00; Stop 11/03/17 at 17:29; Status UNV Ceftriaxone Sodium (Rocephin) 1 gm 1X ONCE IVP Last administered on 11/03/17at 17:30; Start 11/03/17 at 17:15; Stop 11/03/17 at 17:16; Status DC Ondansetron HCl (Zofran) 4 mg PRN Q4HRS PRN IV NAUSEA/VOMITING; Start 11/03/17 at 17:15; Stop 11/04/17 at 17:14; Status DC Tramadol HCl (Ultram) 50 mg PRN Q6HRS PRN PO PAIN Last administered on at 05:28; Start 11/03/17 at 23:15 Potassium Chloride (Klor-Con) 40 meq 1X ONCE PO Last administered on at 08:35; Start 11/04/17 at 08:00; Stop 11/04/17 at 08:01; Status DC Heparin Sodium (Porcine) (Heparin Sq) 5,000 unit Q12HR SQ Last administered on 11/07/17at 08:14; Start 11/04/17 at 21:00 Nystatin (Mycostatin) 1 eric BID TP Last administered on 11/07/17at 08:11; Start 11/04/17 at 21:00 Ceftriaxone Sodium 1 gm/ Sodium Chloride 50 ml @ 100 mls/hr Q24H IV ; Start at 18:45; Stop 11/04/17 at 18:46; Status DC Ceftriaxone Sodium (Rocephin) 1 gm Q24H IVP Last administered on 11/06/17at 17: 58; Start 11/04/17 at 19:00 Lactobacillus Rhamnosus (Culturelle) 1 cap BID PO Last administered on at 08:11; Start 11/04/17 at 21:00 Docusate Sodium (Colace) 100 mg BID PO Last administered on 11/07/17at 08:11; Start 11/06/17 at 21:00 Acetaminophen/ Hydrocodone Bitart (Lortab 5/325) 1 tab PRN Q6HRS PRN PO PAIN Last administered on 11/06/17at 16:12; Start 11/06/17 at 15:30 Active Scripts Active Reported No Known Medications Prior To Admisstion (Info) Each 1 Each Vitals/I & O Vital Sign - Last 24 Hours 11/06/17 11/06/17 11/06/17 11/06/17 10:22 14:39 19:53 20:00 Temp 98.2 98.1 98.2 Pulse 65 73 69 Resp 18 20 20 B/P (MAP) 146/86 (106) 156/88 (110) 144/88 (106) Pulse Ox 94 96 96 O2 Delivery Room Air Room Air Room Air 11/07/17 11/07/17 11/07/17 11/07/17 05:28 06:36 06:36 08:00 Temp 98.0 Pulse 75 Resp 22 20 18 B/P (MAP) 157/86 (109) Pulse Ox 96 100 O2 Delivery Room Air Room Air Room Air Intake and Output 11/06/17 11/06/17 11/07/17 15:00 23:00 07:00 Intake Total 600 ml 360 ml 0 ml Output Total 300 ml Balance 300 ml 360 ml 0 ml Images Exam performed: One view pelvis and 2 views left hip HISTORY: Patient fell 2 weeks ago, increasing pain to the left hip. DATE OF SERVICE: 11/06/2017. Comparison made to a CT pelvis from 11/03/2017. FINDINGS: Normal alignment of both hip joints is preserved. Previously seen acute fracture left greater trochanter is less well seen on the x-rays. There is a nonacute fracture left superior and inferior pubic rami. No soft tissue foreign body. IMPRESSION: Fracture greater trochanter seen on the CT scan is less well seen on the current exam. Nonacute fracture left superior and inferior pubic rami. CHINA POLO MD Nov 07, 2017 09:29
[2017-11-07 15:26] VITALS: BP 135/82
[2017-11-07] MEDS: cefTRIAXone IV Push 1 GM VIAL. IVP SCH (18:02)
[2017-11-07] MEDS: HYDROcodone/APAP 5/325MG 1 TAB TABLET PO PRN (19:14)
[2017-11-07 19:29] VITALS: BP 162/93
--- NOTE | 2017-11-07 22:37 | PDOC3 ---
Discharge Summary Visit Information Date of Admission: Nov 03, 2017 Date of Discharge: Nov 08, 2017 Admitting Diagnosis: Left trochanter fracture, UTI Final Diagnosis Problems Medical Problems: (1) Femur fracture, left Status: Acute (2) Tinea corporis Status: Acute (3) UTI (urinary tract infection) Status: Acute Problems: Brief Hospital Course Allergies Allergies Coded Allergies Type Severity Reaction Last Updated Verified No Known Drug Allergies 07/18/16 No Vital Signs Vital Signs Date Time Temp Pulse Resp B/P (MAP) Pulse Ox O2 Delivery O2 Flow Rate FiO2 11/07/17 20:18 96 Room Air 11/07/17 19:29 98.5 77 20 162/93 (116) 11/04/17 03:00 Brief Hospital Course Ms. Malik is a 67 old female who presented w/ two non-displaced pelvic fractures and a mildly (7mm) displaced greater tuberosity fracture of the left femur. She also had a UTI, treated adequately w/ Rocephin, and candidal intertrigo, treated w/ Nystatin. Pt is advised to have 3-4 weeks of NWB status to allow left hip to heal. She has been treated adequately w/ hydrocodone for pain. Colace for constipation. Pt is going to transfer to [facility] [place] on [place]/08 to complete her rehab. Discharge Information Condition at Discharge: Stable Disposition/Orders: D/C to Another Facility (SNF) Dischare Medications Current Medications Fentanyl Citrate (Fentanyl 2ml Vial) 50 mcg 1X ONCE IV Last administered on at 15:54; Start 11/03/17 at 14:45; Stop 11/03/17 at 14:46; Status DC Ondansetron HCl (Zofran) 4 mg 1X ONCE IV Last administered on 11/03/17at 15:53 ; Start 11/03/17 at 14:45; Stop 11/03/17 at 14:46; Status DC Ceftriaxone Sodium 1 gm/ Sodium Chloride 50 ml @ 100 mls/hr 1X ONCE IV ; Start 11/03/17 at 17:00; Stop 11/03/17 at 17:29; Status UNV Ceftriaxone Sodium (Rocephin) 1 gm 1X ONCE IVP Last administered on 11/03/17at 17:30; Start 11/03/17 at 17:15; Stop 11/03/17 at 17:16; Status DC Ondansetron HCl (Zofran) 4 mg PRN Q4HRS PRN IV NAUSEA/VOMITING; Start 11/03/17 at 17:15; Stop 11/04/17 at 17:14; Status DC Tramadol HCl (Ultram) 50 mg PRN Q6HRS PRN PO PAIN Last administered on 16:48; Start 11/03/17 at 23:15; Stop 11/07/17 at 18:50; Status DC Potassium Chloride (Klor-Con) 40 meq 1X ONCE PO Last administered on at 08:35; Start 11/04/17 at 08:00; Stop 11/04/17 at 08:01; Status DC Heparin Sodium (Porcine) (Heparin Sq) 5,000 unit Q12HR SQ Last administered on 11/07/17 20:13; Start 11/04/17 at 21:00 Nystatin (Mycostatin) 1 eric BID TP Last administered on 11/07/17 20:15; Start 11/04/17 at 21:00 Ceftriaxone Sodium 1 gm/ Sodium Chloride 50 ml @ 100 mls/hr Q24H IV ; Start at 18:45; Stop 11/04/17 at 18:46; Status DC Ceftriaxone Sodium (Rocephin) 1 gm Q24H IVP Last administered on 11/07/17 18: 02; Start 11/04/17 at 19:00 Lactobacillus Rhamnosus (Culturelle) 1 cap BID PO Last administered on 20:13; Start 11/04/17 at 21:00 Docusate Sodium (Colace) 100 mg BID PO Last administered on 11/07/17 20:13; Start 11/06/17 at 21:00 Acetaminophen/ Hydrocodone Bitart (Lortab 5/325) 1 tab PRN Q6HRS PRN PO PAIN Last administered on 11/06/17 16:12; Start 11/06/17 at 15:30; Stop 11/07/17 at 09:26; Status DC Acetaminophen/ Hydrocodone Bitart (Lortab 5/325) 1 tab PRN Q6HRS PRN PO PAIN Last administered on 11/07/17at 19:14; Start 11/07/17 at 19:00 Active Scripts Active Reported No Known Medications Prior To Admisstion (Info) Each 1 Each Patient Instructions Patient Instuctions PT/OT per SNF See MRAD Regular diet Activity per PT CHINA POLO MD Nov 07, 2017 22:37
[2017-11-08 06:00] VITALS: BP 154/82
[2017-11-08] MEDS: HYDROcodone/APAP 5/325MG 1 TAB TABLET PO PRN (07:32)
[2017-11-08] MEDS: NYSTATIN 100,000 UNIT/GM TOPICAL CREAM 15GM TUBE. TP SCH (08:28)
[2017-11-08] MEDS: LACTOBACILLUS RHAMNOSUS GG 1 CAPSULE. PO SCH (08:28)
[2017-11-08] MEDS: DOCUSATE SODIUM 100 MG CAPSULE PO SCH (08:28)
[2017-11-08] MEDS: HEPARIN PF for SUB-Q USE 5,000 UNIT/0.5 ML VIAL. SQ SCH (08:33)
== END 2017-11-08 10:29 | DRG 536 ==
LOC: ER 14:15 → ICU 17:00 → OBSVTOIN 18:32 → 1 SOUTH 11-05 17:38
PROVIDERS: ADMIT Family Medicine; ATTEND Family Medicine
DX: S72.112A Displaced fracture of greater trochanter of left femur, initial encounter for closed fracture (principal); B35.4 Tinea corporis; B37.2 Candidiasis of skin and nail; K59.00 Constipation, unspecified; M85.80 Other specified disorders of bone density and structure, unspecified site; N39.0 Urinary tract infection, site not specified; W18.39XA Other fall on same level, initial encounter; Z91.81 History of falling; Y93.89 Activity, other specified; Y92.098 Other place in other non-institutional residence as the place of occurrence of the external cause; Y99.8 Other external cause status; Z87.81 Personal history of (healed) traumatic fracture; Z90.49 Acquired absence of other specified parts of digestive tract
CPT/HCPCS: 36415; 51702; 72192; 73502; 73562; 80048; 81001; 82550; 83605; 85025; 87040; 87641; 96374; 96375; G0378; G0379; J0696; J2405; J3010; 97110; 97116; 97530; 97535; 99285-25

== ENCOUNTER → 2017-12-21 | Outpatient (CLI) | payer MEDICARE ==
--- NOTE | 2017-12-21 14:54 | RAD ---
EXAM: Pelvis and left hip, 3 views. HISTORY: Fracture follow-up. COMPARISON: 11/06/2017 FINDINGS: A frontal view the pelvis and frontal and frog-leg views of the left hip are obtained. There is a displaced fracture involving the greater trochanter. The fracture line is less distinct compared to the prior study and there is adjacent heterotopic ossification. There is no hip dislocation. There are healed left pubic rami fractures. There are degenerative changes at the lower lumbar levels. IMPRESSION: 1. Suspected minimal interval healing of a left greater trochanteric fracture. There is adjacent soft tissue ossification. 2. Healed left pubic rami fractures. Electronically signed by: Corina Singh MD (12/21/2017 2:51 PM) [id number]
== END | disposition home or self-care (01) ==
LOC: DXRAD 09:16
PROVIDERS: ATTEND Physician Assistant
DX: S72.002D Fracture of unspecified part of neck of left femur, subsequent encounter for closed fracture with routine healing (principal); X58.XXXD Exposure to other specified factors, subsequent encounter; Z91.81 History of falling; Z90.49 Acquired absence of other specified parts of digestive tract
CPT/HCPCS: 73502

== ENCOUNTER 2019-03-16 17:44 | Inpatient (IN) | payer MEDICARE, OTHER ==
[~2019-03-16] VITALS: Ht 154.9 cm; Wt 62.3 kg
--- NOTE | 2019-03-16 18:17 | ED.ADGEN ---
Past History Past Medical History: No Pertinent History, Arthritis, Dementia, UTI Past Surgical History: No Surgical History, Appendectomy Alcohol Use: None Drug Use: None Adult General Chief Complaint Chief Complaint ".. I am just so weak... " [facility] HPI Patient is a 68 year old female who presents with above hx and complaints of wea kness. Multiple visits by Entry Operator to home this week and and several human resources trainer visits today. Patient appears to be somewhat chronically ill. On review of records no significant medical findings on admission on 11/03/2017 at that time she does not follow-up regularly with Dr. take any medications. Was found to have a tuberosity fracture from fall at home... Pt. somewhat poor historian today. Limited history for complaints other than weakness. Attempted to contact her at phone numbers we had available to [phone] and [phone] no answers Pt. follows with Dr. Boyd. Review of Systems Review of Systems Constitutional: Denies fever or chills [] Eyes: Denies change in visual acuity, redness, or eye pain [] HENT: Denies nasal congestion or sore throat [] Respiratory: Denies cough or shortness of breath [] Cardiovascular: No additional information not addressed in HPI [] GI: Denies abdominal pain, nausea, vomiting, bloody stools or diarrhea [] : Denies dysuria or hematuria [] Musculoskeletal: Denies back pain or joint pain []complains of generalized weakness Integument: Denies rash or skin lesions [] Neurologic: Denies headache, focal weakness or sensory changes [] Endocrine: Denies polyuria or polydipsia [] All other systems were reviewed and found to be within normal limits, except as documented in this note. Family History Family History Not currently available Current Medications Current Medications Current Medications Medications (Trade) Dose Ordered Sig/Rustam Start Time Stop Time Status Last Admin Dose Admin Aspirin (Stacey Aspirin) 325 mg 1X ONCE 03/16/19 19:00 03/16/19 19:01 DC 03/16/19 18:51 325 MG Lactated Ringer's 1,000 ml @ 100 mls/hr Q10H 03/16/19 18:18 03/16/19 20:41 DC 03/16/19 18:51 100 MLS/HR Allergies Allergies Allergies Coded Allergies Type Severity Reaction Last Updated Verified No Known Drug Allergies 07/18/16 No Physical Exam Physical Exam Constitutional: Chronically ill in appearance ,non-toxic appearance. [] HENT: Normocephalic, atraumatic, bilateral external ears normal, oropharynx moist, no oral exudates, nose normal. [] Eyes: PERRLA, EOMI, conjunctiva normal, no discharge. [] Neck: Normal range of motion, no tenderness, supple, no stridor. [] Cardiovascular: Tachycardia Heart rate regular rhythm, no murmur []PMI to the left. Lungs & Thorax: Bilateral breath sounds clear to auscultation [] Abdomen: Bowel sounds normal, soft, no tenderness, no masses, no pulsatile mas ses. [Old surgery scars. Diaper rash groin.. Does have some skin breakdown and groin and sacral area Skin: Warm, dry, no erythema, diaper rash like with breakdown. Poor turgor. Back: No tenderness, no CVA tenderness. [] Extremities: No tenderness, no cyanosis, no clubbing, ROM intact,ankle edema. [ Arthritic changes. Neurologic: Alert but at times does not appear to be oriented, moves extremities on request, decrease plantar sensory function, Psychologic: Affect flat, judgement appears limited, poor historian, memory, mood depressed. Current Patient Data Vital Signs Vital Signs Date Time Temp Pulse Resp B/P (MAP) Pulse Ox O2 Delivery O2 Flow Rate FiO2 03/16/19 18:22 97.5 120 18 96 Room Air 03/16/19 18:15 135/74 (94) Lab Results Laboratory Tests Test 03/16/19 18:11 White Blood Count 14.4 x10^3/uL (4.0-11.0) H Red Blood Count 4.49 x10^6/uL (3.50-5.40) Hemoglobin 12.5 g/dL (12.0-15.5) Hematocrit 39.5 % (36.0-47.0) Mean Corpuscular Volume 88 fL (79-100) Mean Corpuscular Hemoglobin 28 pg (25-35) Mean Corpuscular Hemoglobin Concent 32 g/dL (31-37) Red Cell Distribution Width 13.7 % (11.5-14.5) Platelet Count 427 x10^3/uL (140-400) H Neutrophils (%) (Auto) 81 % (31-73) H Lymphocytes (%) (Auto) 8 % (24-48) L Monocytes (%) (Auto) 10 % (0-9) H Eosinophils (%) (Auto) 1 % (0-3) Basophils (%) (Auto) 1 % (0-3) Neutrophils # (Auto) 11.6 x10^3uL (1.8-7.7) H Lymphocytes # (Auto) 1.2 x10^3/uL (1.0-4.8) Monocytes # (Auto) 1.4 x10^3/uL (0.0-1.1) H Eosinophils # (Auto) 0.1 x10^3/uL (0.0-0.7) Basophils # (Auto) 0.1 x10^3/uL (0.0-0.2) Prothrombin Time 10.9 SEC (9.4-11.4) Prothrombin Time INR 1.1 (0.9-1.1) PTT 32 SEC (23-33) D-Dimer (Vicky) 2.95 mg/L (0.00-0.50) H Sodium Level 139 mmol/L (136-145) Potassium Level 3.9 mmol/L (3.5-5.1) Chloride Level 103 mmol/L (98-107) Carbon Dioxide Level 21 mmol/L (21-32) Anion Gap 15 (6-14) H Blood Urea Nitrogen 24 mg/dL (7-20) H Creatinine 0.9 mg/dL (0.6-1.0) Estimated GFR (Cockcroft-Gault) 62.5 Glucose Level 102 mg/dL (70-99) H Calcium Level 10.0 mg/dL (8.5-10.1) Magnesium Level 1.9 mg/dL (1.8-2.4) Total Bilirubin 0.4 mg/dL (0.2-1.0) Direct Bilirubin 0.2 mg/dL (0.0-0.2) Aspartate Amino Transferase (AST) 39 U/L (15-37) H Alanine Aminotransferase (ALT) 30 U/L (14-59) Alkaline Phosphatase 96 U/L (46-116) Creatine Kinase 310 U/L (26-192) H Troponin I Quantitative < 0.017 ng/mL (0-0.055) HD-Inx-Q-Type Natriuretic Peptide 120 pg/mL (0-124) Total Protein 7.8 g/dL (6.4-8.2) Albumin 3.2 g/dL (3.4-5.0) L Lipase 70 U/L (73-393) L EKG EKG My interpretation EKG shows a sinus tachycardia heart and 3. She has left axis deviation and some nonspecific contour abnormalities anterior septal area[] Radiology/Procedures Radiology/Procedures [][address] [address] IMAGING REPORT Signed PATIENT: RAINA TRIPATHI ACCOUNT: [id number] : 1950 LOCATION: ER AGE: 68 SEX: F EXAM STATUS: REG ER ORD. PHYSICIAN: ALEN CALIX MD REASON: Confusion, weakness PROCEDURE: CT HEAD WO CONTRAST Exam: CT head INDICATION: Confusion TECHNIQUE: Sequential axial images through the head were obtained without the administration of IV contrast. Comparisons: None FINDINGS: No focal parenchymal lesion or hemorrhage is identified. There is no midline shift or sulcal effacement. Extensive patchy hypodensity within the periventricular white matter likely representing chronic ischemic change. The ventricular system is within normal limits without compression hydrocephalus. The basal cisterns are well maintained. The visualized portions of the paranasal sinuses and mastoid air cells are well-pneumatized. No acute fractures. IMPRESSION: Extensive patchy hypodensities in the periventricular white matter which are age indeterminate however likely represent chronic ischemic change. If symptoms persist further evaluation with MRI is recommended. Exposure: One or more of the following in the visualized dose reduction techniques were utilized for this examination: 1. Automated exposure control 2. Adjustment of the MA and/or KV according to patient size Use of iterative of reconstructive technique Electronically signed by: Nunu Tobin MD (03/16/2019 7:14 PM) [facility] DICTATED AND SIGNED BY: NUNU TOBIN MD DATE: 03/16/191913 Impressions: [address] [address] IMAGING REPORT Signed PATIENT: RAINA TRIPATHI ACCOUNT: [id number] : 1950 LOCATION: [address] [place] [address] AGE: 68 SEX: F EXAM STATUS: ADM IN ORD. PHYSICIAN: ALEN CAILX MD REASON: dyspnea, elev. d-dimer 2.95 PROCEDURE: CT ANGIOGRAPHY CHEST Exam: CT of chest with contrast INDICATION: Dyspnea TECHNIQUE: Sequential axial images through the chest obtained following the administration of 70 mL of Isovue 370. IV contrast. Sagittal and coronal reformatted images were reconstructed from the axial data and reviewed. Comparisons: None FINDINGS: Heterogenous enlarged multinodular thyroid goiter. No enlarged mediastinal lymph nodes are identified. Heart size is normal. Moderate coronary vessel calcifications. No pericardial effusion. Thoracic aorta has a normal course and caliber. Pulmonary artery is not enlarged. No pulmonary embolus identified within the main, lobar or segmental pulmonary arteries. Airways are patent. No consolidation or pneumothorax. Innumerable small pulmonary nodules are noted in the lungs prominently at the lung apices, measuring up to 5 mm. No pleural effusion or thickening. Cholelithiasis. Otherwise visualized upper abdomen is unremarkable. No suspicious osseous lesion or acute fracture. IMPRESSION: 1. No pulmonary embolus identified within the main, lobar or segmental pulmonary arteries. 2. Enlarged heterogenous thyroid with numerous nodules. Further evaluation with thyroid ultrasound on a nonemergent basis. 3. Numerous subcentimeter pulmonary nodules. Follow-up chest CT is recommended in 6 months. Exposure: One or more of the following in the visualized dose reduction techniques were utilized for this examination: 1. Automated exposure control 2. Adjustment of the MA and/or KV according to patient size 3. Use of iterative of reconstructive technique Electronically signed by: Nunu Tobin MD (03/16/2019 9:00 PM) [place] [address] IMAGING REPORT Signed PATIENT: RAINA TRIPATHI ACCOUNT: [id number] : 1950 LOCATION: ER AGE: 68 SEX: F EXAM STATUS: REG ER ORD. PHYSICIAN: ALEN CALIX MD REASON: Weakness, dyspnea PROCEDURE: PORTABLE CHEST 1V Exam: Chest one view INDICATION: Weakness TECHNIQUE: Frontal view of the chest Comparisons: None FINDINGS: The cardiomediastinal silhouette and pulmonary vessels are within normal limits. The lung and pleural spaces are clear. Posttraumatic sequela of the left humerus. IMPRESSION: No acute cardiopulmonary process. Electronically signed by: Nunu Tobin MD (03/16/2019 7:41 PM) [facility] DICTATED AND SIGNED BY: NUNU TOBIN MD DATE: 03/16/191940 CC: ALEN CALIX MD; MEAGAN BOYD MD ~ Course & Med Decision Making Course & Med Decision Making Pertinent Labs and Imaging studies reviewed. (See chart for details) Admit to Dr. Johnson for further eval. tx. Social service consult. Entry Operator - co ncern home situation. [] Final Impression Final Impression 1. Weakness 2. Leukocytosis 14.4 3. Elevated D-dimer 2.95 4. Dehydration[] 5. Confused/ Dementia? 6. Skin Breakdown Groin 7. UTI Dragon Disclaimer Dragon Disclaimer This electronic medical record was generated, in whole or in part, using a voice recognition dictation system. Discharge Summary Visit Information Final Diagnosis Problems Medical Problems: (1) Weakness Status: Acute Brief Hospital Course Allergies Allergies Coded Allergies Type Severity Reaction Last Updated Verified No Known Drug Allergies 07/18/16 No Vital Signs Vital Signs Date Time Temp Pulse Resp B/P (MAP) Pulse Ox O2 Delivery O2 Flow Rate FiO2 03/16/19 18:22 97.5 120 18 96 Room Air 03/16/19 18:15 135/74 (94) Lab Results Laboratory Tests Test 03/16/19 18:11 White Blood Count 14.4 x10^3/uL (4.0-11.0) Red Blood Count 4.49 x10^6/uL (3.50-5.40) Hemoglobin 12.5 g/dL (12.0-15.5) Hematocrit 39.5 % (36.0-47.0) Mean Corpuscular Volume 88 fL (79-100) Mean Corpuscular Hemoglobin 28 pg (25-35) Mean Corpuscular Hemoglobin Concent 32 g/dL (31-37) Red Cell Distribution Width 13.7 % (11.5-14.5) Platelet Count 427 x10^3/uL (140-400) Neutrophils (%) (Auto) 81 % (31-73) Lymphocytes (%) (Auto) 8 % (24-48) Monocytes (%) (Auto) 10 % (0-9) Eosinophils (%) (Auto) 1 % (0-3) Basophils (%) (Auto) 1 % (0-3) Neutrophils # (Auto) 11.6 x10^3uL (1.8-7.7) Lymphocytes # (Auto) 1.2 x10^3/uL (1.0-4.8) Monocytes # (Auto) 1.4 x10^3/uL (0.0-1.1) Eosinophils # (Auto) 0.1 x10^3/uL (0.0-0.7) Basophils # (Auto) 0.1 x10^3/uL (0.0-0.2) Prothrombin Time 10.9 SEC (9.4-11.4) Prothromb Time International Ratio 1.1 (0.9-1.1) Activated Partial Thromboplast Time 32 SEC (23-33) D-Dimer (Vicky) 2.95 mg/L (0.00-0.50) Sodium Level 139 mmol/L (136-145) Potassium Level 3.9 mmol/L (3.5-5.1) Chloride Level 103 mmol/L (98-107) Carbon Dioxide Level 21 mmol/L (21-32) Anion Gap 15 (6-14) Blood Urea Nitrogen 24 mg/dL (7-20) Creatinine 0.9 mg/dL (0.6-1.0) Estimated GFR (Cockcroft-Gault) 62.5 Glucose Level 102 mg/dL (70-99) Calcium Level 10.0 mg/dL (8.5-10.1) Magnesium Level 1.9 mg/dL (1.8-2.4) Total Bilirubin 0.4 mg/dL (0.2-1.0) Direct Bilirubin 0.2 mg/dL (0.0-0.2) Aspartate Amino Transf (AST/SGOT) 39 U/L (15-37) Alanine Aminotransferase (ALT/SGPT) 30 U/L (14-59) Alkaline Phosphatase 96 U/L (46-116) Creatine Kinase 310 U/L (26-192) Troponin I Quantitative < 0.017 ng/mL (0-0.055) ZA-Lkg-X-Type Natriuretic Peptide 120 pg/mL (0-124) Total Protein 7.8 g/dL (6.4-8.2) Albumin 3.2 g/dL (3.4-5.0) Lipase 70 U/L (73-393) Brief Hospital Course Ms. Tripathi is a 68 old female who presented with mental status change and UTI. Admitted Dr. Johnson. Discharge Information Dischare Medications Current Medications Aspirin (Stacey Aspirin) 325 mg 1X ONCE PO Last administered on 03/16/19at 18:51; Admin Dose 325 MG; Start 03/16/19 at 19:00; Stop 03/16/19 at 19:01; Status DC Lactated Ringer's 1,000 ml @ 100 mls/hr Q10H IV Last administered on 03/16/19at 18:51; Admin Dose 100 MLS/HR; Start 03/16/19 at 18:18; Stop 03/16/19 at 20:41; Status DC Active Scripts Active Reported Lisinopril 20 Mg Tablet 20 Mg PO DAILY Dragon Disclaimer This chart was dictated in whole or in part using Voice Recognition software in a busy, high-work load, and often noisy Emergency Department environment. It may contain unintended and wholly unrecognized errors or omissions. ALEN CALIX MD Mar 16, 2019 18:17
[2019-03-16] MEDS ORDERED: IV RINGERS SOLUTION,LACTATED 1,000 ML IV SCH (18:18)
--- NOTE | 2019-03-16 18:29 | EKG ---
[address] [address] Test Date: 2019-03-16 Test Time: 18:28:13 Pat Name: RAINA TRIPATHI Department: Room: Gender: F Street Supervisor: : 1950 Requested By: ALEN CALIX Order Number: [id number] Reading MD: Measurements Intervals [place] Rate: 103 P: 28 MI: 138 QRS: -51 QRSD: 88 T: 36 QT: 322 QTc: 424 Interpretive Statements SINUS TACHYCARDIA ABNORMAL LEFT AXIS DEVIATION R-S TRANSITION ZONE IN V LEADS DISPLACED TO THE LEFT QRS(T) CONTOUR ABNORMALITY CONSIDER ANTEROSEPTAL MYOCARDIAL DAMAGE CONSISTENT WITH INFERIOR INFARCT PROBABLY OLD ABNORMAL ECG RI6.01 Compared to ECG 04/24/2013 14:00:41 ST (T wave) deviation no longer present Myocardial infarct finding still present
[2019-03-16 18:54] LABS: BASO # 0.1 x10^3/uL (0.0-0.2); BASO % 1 % (0-3); EOS # 0.1 x10^3/uL (0.0-0.7); EOS % 1 % (0-3); HEMATOCRIT 39.5 % (36.0-47.0); HEMOGLOBIN 12.5 g/dL (12.0-15.5); LYMPH # 1.2 x10^3/uL (1.0-4.8); LYMPH % 8 % (24-48); MEAN CORPUSCULAR HEMOGLOBIN 28 pg (25-35); MEAN CORPUSCULAR HGB CONC 32 g/dL (31-37); MEAN CORPUSCULAR VOLUME 88 fL (79-100); MONO # 1.4 x10^3/uL (0.0-1.1); MONO % 10 % (0-9); NEUT # 11.6 x10^3uL (1.8-7.7); NEUT % 81 % (31-73); PLATELET COUNT 427 x10^3/uL (140-400); RED BLOOD COUNT 4.49 x10^6/uL (3.50-5.40); RED CELL DISTRIBUTION WIDTH 13.7 % (11.5-14.5); WHITE BLOOD COUNT 14.4 x10^3/uL (4.0-11.0)
[2019-03-16] MEDS ORDERED: ASPIRIN 325 MG TABLET PO ONE (19:00)
--- NOTE | 2019-03-16 19:17 | RAD ---
Exam: CT head INDICATION: Confusion TECHNIQUE: Sequential axial images through the head were obtained without the administration of IV contrast. Comparisons: None FINDINGS: No focal parenchymal lesion or hemorrhage is identified. There is no midline shift or sulcal effacement. Extensive patchy hypodensity within the periventricular white matter likely representing chronic ischemic change. The ventricular system is within normal limits without compression hydrocephalus. The basal cisterns are well maintained. The visualized portions of the paranasal sinuses and mastoid air cells are well-pneumatized. No acute fractures. IMPRESSION: Extensive patchy hypodensities in the periventricular white matter which are age indeterminate however likely represent chronic ischemic change. If symptoms persist further evaluation with MRI is recommended. Exposure: One or more of the following in the visualized dose reduction techniques were utilized for this examination: 1. Automated exposure control 2. Adjustment of the MA and/or KV according to patient size Use of iterative of reconstructive technique Electronically signed by: Nunu Hancock MD (03/16/2019 7:14 PM) [facility]
[2019-03-16 19:19] LABS: ALBUMIN 3.2 g/dL (3.4-5.0); CREATININE 0.9 mg/dL (0.6-1.0); DIRECT BILIRUBIN 0.2 mg/dL (0.0-0.2); GFR 62.5; MAGNESIUM 1.9 mg/dL (1.8-2.4); POTASSIUM 3.9 mmol/L (3.5-5.1); TOTAL BILIRUBIN 0.4 mg/dL (0.2-1.0); TOTAL PROTEIN 7.8 g/dL (6.4-8.2)
--- NOTE | 2019-03-16 19:44 | RAD ---
Exam: Chest one view INDICATION: Weakness TECHNIQUE: Frontal view of the chest Comparisons: None FINDINGS: The cardiomediastinal silhouette and pulmonary vessels are within normal limits. The lung and pleural spaces are clear. Posttraumatic sequela of the left humerus. IMPRESSION: No acute cardiopulmonary process. Electronically signed by: Nunu Hancock MD (03/16/2019 7:41 PM) [facility]
[2019-03-16] MEDS ORDERED: ACETAMINOPHEN 325 MG TABLET PO PRN (19:45)
[2019-03-16] MEDS: IV RINGERS SOLUTION,LACTATED 1,000 ML IV SCH (19:45)
[2019-03-16] MEDS ORDERED: ONDANSETRON PF 4 MG/2 ML VIAL. IV PRN (19:45)
[2019-03-16] MEDS ORDERED: IPRATRPIUM/ALBUTEROL 0.5/2.5MG 3 ML NEBU. NEB SCH (20:00)
[2019-03-16 20:14] LABS: BACTERIA,URINE FEW /HPF (0-FEW); BILIRUBIN,URINE SMALL (NEG); CLARITY,URINE TURBID; COLOR,URINE AMBER; GLUCOSE,URINE NEG (NEG); NITRITE,URINE NEG (NEG); SQUAMOUS EPITHELIAL CELL,UR OCC /LPF; UROBILINOGEN,URINE 1 mg/dL (0.2 mg/dL)
[2019-03-16] MEDS ORDERED: ENOXAPARIN ** NOTE DOSE ** SYRINGE SQ ONE (20:15)
[2019-03-16] MEDS ORDERED: IOHEXOL 350 MG/ML 100 ML VIAL. IV ONE (20:15)
[2019-03-16 20:16] LABS: AMPHETAMINE/METHAMPHETAMINE NEG (NEG); BARBITURATES NEG (NEG); BENZODIAZEPINES NEG (NEG); CANNABINOIDS NEG (NEG); COCAINE NEG (NEG); METHADONE NEG (NEG); OPIATES POS (NEG); PHENCYCLIDINE NEG (NEG)
[2019-03-16] MEDS ORDERED: levoFLOXacin 500 MG TABLET PO SCH (21:00)
--- NOTE | 2019-03-16 21:03 | RAD ---
Exam: CT of chest with contrast INDICATION: Dyspnea TECHNIQUE: Sequential axial images through the chest obtained following the administration of 70 mL of Isovue 370. IV contrast. Sagittal and coronal reformatted images were reconstructed from the axial data and reviewed. Comparisons: None FINDINGS: Heterogenous enlarged multinodular thyroid goiter. No enlarged mediastinal lymph nodes are identified. Heart size is normal. Moderate coronary vessel calcifications. No pericardial effusion. Thoracic aorta has a normal course and caliber. Pulmonary artery is not enlarged. No pulmonary embolus identified within the main, lobar or segmental pulmonary arteries. Airways are patent. No consolidation or pneumothorax. Innumerable small pulmonary nodules are noted in the lungs prominently at the lung apices, measuring up to 5 mm. No pleural effusion or thickening. Cholelithiasis. Otherwise visualized upper abdomen is unremarkable. No suspicious osseous lesion or acute fracture. IMPRESSION: 1. No pulmonary embolus identified within the main, lobar or segmental pulmonary arteries. 2. Enlarged heterogenous thyroid with numerous nodules. Further evaluation with thyroid ultrasound on a nonemergent basis. 3. Numerous subcentimeter pulmonary nodules. Follow-up chest CT is recommended in 6 months. Exposure: One or more of the following in the visualized dose reduction techniques were utilized for this examination: 1. Automated exposure control 2. Adjustment of the MA and/or KV according to patient size 3. Use of iterative of reconstructive technique Electronically signed by: Nunu Hancock MD (03/16/2019 9:00 PM) [facility]
[2019-03-16] MEDS ORDERED: LISI-334 PO (23:06)
[2019-03-16 23:15] VITALS: BP 123/76
[2019-03-17] MEDS ORDERED: ENOXAPARIN ** NOTE DOSE ** SYRINGE SQ ONE (06:00)
[2019-03-17] MEDS ORDERED: levoFLOXacin 500 MG TABLET PO SCH (06:00)
[2019-03-17] MEDS: IV RINGERS SOLUTION,LACTATED 1,000 ML IV SCH ×3 (06:16→14:30)
[2019-03-17 06:23] LABS: BASO # 0.1 x10^3/uL (0.0-0.2); BASO % 1 % (0-3); EOS # 0.1 x10^3/uL (0.0-0.7); EOS % 1 % (0-3); HEMOGLOBIN 10.9 g/dL (12.0-15.5); LYMPH # 1.2 x10^3/uL (1.0-4.8); LYMPH % 11 % (24-48); MEAN CORPUSCULAR HEMOGLOBIN 29 pg (25-35); MEAN CORPUSCULAR HGB CONC 32 g/dL (31-37); MEAN CORPUSCULAR VOLUME 89 fL (79-100); MONO # 1.2 x10^3/uL (0.0-1.1); MONO % 12 % (0-9); NEUT # 8.1 x10^3uL (1.8-7.7); NEUT % 76 % (31-73); PLATELET COUNT 320 x10^3/uL (140-400); RED BLOOD COUNT 3.82 x10^6/uL (3.50-5.40); RED CELL DISTRIBUTION WIDTH 13.6 % (11.5-14.5); WHITE BLOOD COUNT 10.7 x10^3/uL (4.0-11.0)
[2019-03-17 06:30] LABS: CALCIUM 9.6 mg/dL (8.5-10.1); GFR 55.3; POTASSIUM 3.7 mmol/L (3.5-5.1)
[2019-03-17 06:36] VITALS: BP 116/70
[2019-03-17] MEDS: LACTOBACILLUS RHAMNOSUS GG 1 CAPSULE. PO SCH ×2 (08:47→21:10)
[2019-03-17] MEDS: LISINOPRIL 20 MG TABLET PO SCH (08:47)
[2019-03-17] MEDS: NYSTATIN/TRIAMCIN TOPICAL OINTMENT 15GM TUBE. TP SCH ×2 (08:51→21:00)
[2019-03-17] MEDS ORDERED: NYSTATIN TOPICAL POWDER 15GM BOTTLE. TP SCH ×2 (09:00→21:00)
--- NOTE | 2019-03-17 12:04 | RAD ---
Examination: Bilateral Lower Extremity Venous Doppler Ultrasound History: Elevated d-dimer Comparison: None Procedure: Quiroz scale, color flow 2D and spectal waveform analysis images are obtained with and without compression in the area of the common femoral vein, superficial femoral vein - femoral vein junction, main femoral vein (superficial femoral vein) and popliteal vein. Veins of the proximal calf are also imaged. Findings: There is normal duplex flow, color flow and compressibility of all visualized vein segments. No evidence of deep venous thrombus is present. The right calf veins could not be imaged due to patient positioning. Impression: Limited examination. No evidence of deep venous thrombosis in the visualized bilateral lower extremity venous system. Electronically signed by: Kana Belle MD (03/17/2019 12:01 PM) [id number]
[2019-03-17 13:00] VITALS: BP 109/71
[2019-03-17] MEDS ORDERED: PIP/TAZO PER PHARMACY MC PRN (15:00)
[2019-03-17] MEDS ORDERED: VANCOMYCIN 1.5 GM in IV NORMAL SALINE 500ML 500 ML IV ONE (15:00)
--- NOTE | 2019-03-17 15:26 | HP ---
ADMIT DATE: HISTORY OF PRESENT ILLNESS: The patient is a 68-year-old female patient who lives with her [place] property who apparently was brought to the Emergency Room because of weakness. According to her , she has been in her wheelchair for the last week and a half. She is complaining of pain in her right knee and right ankle as well as left shoulder, has not been eating or drinking. Her does not know if she has a bowel movement. She took a shower while in a wheelchair. He apparently gets all her medication from the [place]. There is a lady that comes and helps to clean the house, but they do not have any home health or private care. Both of them are wheelchair bound. She herself cannot transfer from her wheelchair to the bed and the does most of the cooking, laundry; however, he is unable to lift her from the wheelchair to the bed. She apparently has been in a wheelchair for the last 10 days and developed stage 4 decubitus ulcer on her right buttock with central eschar with surrounding erythema. She has also severe intertriginous candidiasis below her breasts around her umbilical area and both groins area and perianal. She is apparently incontinent of urine. Apparently, follows with Dr. Tobias and the last time which she saw him about a month ago. He wanted to do x-rays of her right knee, right ankle and left shoulder, but she has never made it there. PAST MEDICAL HISTORY: Unremarkable. PAST SURGICAL HISTORY: Unremarkable. ALLERGIES: She has no known drug allergies. MEDICATIONS: She is currently on mirtazapine and lisinopril. FAMILY HISTORY: Unremarkable. SOCIAL HISTORY: She is and lives with her , both are wheelchair bound. She does not smoke, drink alcohol or use recreational drugs. 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 They have one daughter who does not really keep in touch. REVIEW OF SYSTEMS: The patient denied any blurring of vision, cataract, glaucoma or macular degeneration. She did complain of being hard of hearing, but denied any tinnitus or earache. Denied any nosebleeds, stuffy nose or postnasal drip. Denied any sore throat, sore tongue, toothache, hoarseness of voice or difficulty swallowing. Denied any nausea, vomiting, diarrhea or constipation. Denied any hematemesis, melena or hematochezia. Denied any dysuria, frequency or hematuria. Did complain of urinary incontinence. Denied any chest pain, shortness of breath, orthopnea or paroxysmal nocturnal dyspnea. Denied any cough, phlegm or hemoptysis. Denied any chills, rigors or fever. PHYSICAL EXAMINATION: GENERAL: On arrival to the Emergency Room, the patient looked well and was clearly in no apparent respiratory distress. No pallor, jaundice, cyanosis or thyromegaly. No jugular venous distention. No limb edema. VITAL SIGNS: Her heart rate was 69, blood pressure was 144/88, temperature was 98.2, respiratory rate 20, and oxygen saturation was 96%. HEAD, EYES, EARS, NOSE AND THROAT: Showed normocephalic, atraumatic. NECK: Supple. HEART: Showed normal first and second heart sounds. No gallop, rub or murmur. CHEST: Clear to auscultation. No crepitation or rhonchi. ABDOMEN: Distended, soft, nontender. No guarding or rigidity. No organomegaly. All hernial orifice intact. Bowel sounds normal. NEUROLOGIC: She is extremely hard of hearing, but otherwise all cranial nerves intact. She moves her right upper extremity to much good extent than her left upper extremity. She has pain in her left shoulder. She is also complaining of pain in her right knee and right ankle joint. She apparently has been in a wheelchair for the last 10 days. She has large stage 4 right gluteal decubitus ulcer. She has severe intertriginous candidiasis under both breasts around the umbilical area and both groins and perianal area. She has urinary incontinence. LABORATORY AND IMAGING DATA: Her lab work on arrival showed a white cell count of 11,800, hemoglobin 14.5, hematocrit 44, MCV 87 and platelet count of 381,000 with normal manual differential. Her chemistry showed a serum sodium of 142, potassium 3.8, chloride 104, bicarbonate 24, anion gap of 14, BUN 28, creatinine 1.1, estimated GFR was 50 mL per minute. Her glucose was 93, calcium was 9.7. CK was 29. Her urinalysis showed the urine was yellow, hazy with a pH of 5, specific gravity of 1.020. The urine was negative for protein, glucose, ketones. There was small amount of blood, negative for nitrite and leukocyte esterase, 11-20 rbc's, 1-4 wbc's, moderate amount of bacteria. Her nasal screen for MRSA PCR was negative. Her toxic screen was positive for opiates. Her prothrombin time was 10.9, INR of 1.1, aPTT was 32, D-dimer was 2.95. She had had a CT scan of the head, which showed that extensive patchy hypodensities in the periventricular white matter, which are age indeterminate; however, likely represents chronic ischemic changes. If symptoms persist, further evaluation with MRI recommended. She has had chest x-ray, which showed that the cardiomediastinal silhouette and pulmonary vessels are within normal limits. The lungs and pleural spaces are clear, posttraumatic sequela of the left humerus. She had a CT scan of the chest with CT angiography of the chest, which basically showed that she has heterogenous enlarged multinodular thyroid goiter. No enlarged mediastinal lymph nodes are identified. Heart size is normal, moderate coronary vessel calcification. No pericardial effusion. Thoracic aorta has a normal in course and caliber. Pulmonary artery is not enlarged. No pulmonary embolus identified within the main lobar and segmental pulmonary arteries. Airways are patent. No consolidation or pneumothorax. The patient has innumerable small pulmonary nodules that are noted in the lungs with prominent at the lung apices measuring up to 5 mm, no pleural effusion or thickening or cholelithiasis. Otherwise, the visualized upper abdomen is unremarkable. No suspicious osseous lesion or acute fracture. Given elevated D-dimer, she had had venous Doppler ultrasound of both lower extremities, which showed that no evidence of deep venous thrombosis in the visualized bilateral lower extremity venous system. IMPRESSION: In summary, this is a 68-year-old female patient who was admitted with weakness. She has been sitting in her wheelchair for almost 10 days now. She has large stage 4 right gluteal decubitus ulcer. She is incontinent of urine. She has severe intertriginous candidiasis under breasts, around the umbilical area and groin and perineal area. She is unable to walk because of severe pain in her right knee and right ankle joint and she has also severe pain in her left shoulder. PLAN: Plan is to contact Dr. Tobias's office to get some more information about her with Alex catheter and IV line. We will start her on IV antibiotic. We will x-ray her right knee and right ankle joint and left shoulder and left hip. We have consulted the wound care team and was started on IV antibiotic that should cover broad spectrum range. We will start with vancomycin and Zosyn. We will see if she qualifies to be transferred to [facility] and the Adult Protective Services should be contacted given the state of the apartment and given the fact that both are probably disabled, wheelchair bound and [facility]. YESICA SCHMIDT MD DR: PATSY/riley JOB#: [id number] / [id number]
[2019-03-17] MEDS ORDERED: TUBERCULIN PPD 5TUB.UNIT 0.1 ML TEST. ID ONE (15:30)
--- NOTE | 2019-03-17 15:54 | RAD ---
Indications: Pain and difficulty walking. 2 VIEW STUDY OF THE RIGHT ANKLE: No acute fracture or dislocation or lytic process is evident. Old healed fracture of the distal shaft of the right fibula is seen. Severe degenerative osteoarthritis of the mortise ankle joint is seen including joint space narrowing and subchondral sclerosis and spurring especially involving the tibiotalar joint compartment. There is flattening of the plantar arch. Plantar and posterior spurs of the calcaneus are seen. Subtalar joint compartments are poorly visualized. Therefore, osseous tarsal coalition is possible. IMPRESSION: No acute fracture. See discussion above. AP VIEW OF THE PELVIS: Old healed fractures of the superior and inferior pubic rami of the left obturator ring are seen. No acute-appearing fracture is evident. Contrast is seen within the urinary bladder which obscures the sacrum. IMPRESSION: Old fractures of the left obturator ring. TWO-VIEW STUDY LEFT SHOULDER: Deformity of the proximal left humerus is seen due to an old healed fracture. No acute-appearing fracture is evident. There is degenerative osteoarthritis of the AC joint and glenohumeral joint. There is impingement of the acromiohumeral space which may result in rotator cuff disease. IMPRESSION: No acute fracture. See discussion above. 2 VIEW STUDY OF THE RIGHT KNEE: No acute fracture is seen. There is deformity of the proximal right fibula consistent with an old healed fracture. Tricompartmental primary degenerative osteoarthritis of the right knee is seen most severely involving the lateral tibiofemoral joint compartment. Calcified atheromatous arterial disease is evident. IMPRESSION: Tricompartmental primary degenerative osteoarthritis of the right knee. Electronically signed by: Ron Chambers MD (03/17/2019 3:51 PM) [facility]
[2019-03-17 16:00] VITALS: BP 119/73
[2019-03-17] MEDS ORDERED: MELO15TA23 PO (17:08)
[2019-03-17] MEDS: VANCOMYCIN PER PHARMACY MC PRN (17:17)
[2019-03-17] MEDS: PIPERACILLIN/TAZOBACTAM 4.5 GM in IV NORMAL SALINE 50ML 50 ML IV SCH (21:10)
[2019-03-17 21:23] VITALS: BP 135/76
--- NOTE | 2019-03-17 23:28 | RAD ---
EXAM: AP View of the chest Images were obtained using dual-energy technique DATE: 03/17/2019 9:58 PM INDICATION: PICC placement verification COMPARISON: No Prior FINDINGS: Left upper cavity PICC tip projects over the middistal SVC. Moderate cardiomegaly. Atherosclerotic calcifications of the tortuous aorta are seen. Mediastinal and hilar contours are stable. No lobar consolidation. Minimal patchy opacities in the lung bases likely atelectasis. No pleural effusion or pneumothorax. IMPRESSION: Left upper extremity PICC tip projects over the mid-distal SVC. Electronically signed by: Dwain Artis MD (03/17/2019 11:25 PM) [facility]
--- NOTE | 2019-03-17 23:35 | PN ---
DATE: 03/17/2019 SUBJECTIVE: The patient is resting, slightly propped up in bed, in no apparent distress. She is very hard of hearing. Continued to complain of pain in her right knee, right ankle joint and left shoulder. Continued to be incontinent. She has a large stage 4 right gluteal decubitus ulcer and severe intertriginous candidiasis. She does have evidence of fracture of her left humerus that seems to have healed with some deformity. PHYSICAL EXAMINATION: GENERAL: When I examined her this afternoon, she looked well and was clearly in no apparent respiratory distress, pale, but no jaundice, cyanosis, or thyromegaly. No jugular venous distension. No limb edema. VITAL SIGNS: Her heart rate was 85, blood pressure was 109/71, temperature was 98.5, respiratory rate 20, and oxygen saturation was 96%. HEAD, EYES, EARS, NOSE AND THROAT: Normocephalic, atraumatic. NECK: Supple. HEART: Showed normal first and second heart sounds. No gallop, rub or murmur. CHEST: Clear to auscultation. No crepitation or rhonchi. ABDOMEN: Distended, soft, nontender. No guarding or rigidity. No organomegaly. All hernial orifices intact. Bowel sounds normal. NEUROLOGIC: The patient is resting, slightly propped up in bed, in no apparent distress. She is very hard of hearing, otherwise all cranial nerves intact. She moves right upper extremity to much good extent than the left upper extremity. She seemed to be mostly bed bound, wheelchair bound. She has large stage 4 right gluteal decubitus ulcer. She has severe intertriginous candidiasis under both breasts around umbilical area and in both groins and perianal area. Her intake was 1400, no output was recorded. LABORATORY DATA: Her lab work this morning showed a white cell count of 10,700, hemoglobin 10.9, hematocrit 34, MCV 89, platelet count of 320,000 with normal manual differential. Her chemistry showed a serum sodium 138, potassium 3.7, chloride 105, bicarbonate 22, anion gap of 11, BUN 23, creatinine 1, estimated GFR was 55 mL per minute. Her glucose was 77, calcium was 9.6. TSH is normal at 31.38. Her prothrombin time was 10.9, INR 1.1, aPTT was 32. Urinalysis showed that she was negative for nitrite. There are 11-20 wbc's, very few bacteria. Her toxic screen was positive for opiates. ASSESSMENT: This is a 68-year-old patient who was admitted with marked weakness. She had been sitting in her wheelchair for 10 days, has not been eating or drinking. She has large stage 4 right gluteal decubitus ulcer with eschar and surrounding erythema. She is incontinent of urine. She continued to complain of severe pain in her right knee, right ankle joint left shoulder. She has numerous pulmonary nodules, particularly in both upper lobes, raising the prospect of either malignancy or miliary tuberculosis. We will check a tuberculin test and a QuantiFERON test to rule out the possibility of miliary tuberculosis. We have ordered a PICC line, started her on vancomycin and Zosyn and also an indwelling Alex catheter. YESICA SCHMIDT MD DR: PATSY/riley JOB#: [id number] / [id number]
[2019-03-18] MEDS: IV RINGERS SOLUTION,LACTATED 1,000 ML IV SCH ×2 (03:30→19:49)
[2019-03-18] MEDS: PIPERACILLIN/TAZOBACTAM 4.5 GM in IV NORMAL SALINE 50ML 50 ML IV SCH ×3 (06:00→22:07)
[2019-03-18 06:39] VITALS: BP 130/78
[2019-03-18] MEDS: NYSTATIN/TRIAMCIN TOPICAL OINTMENT 15GM TUBE. TP SCH ×2 (09:00→21:00)
[2019-03-18 10:44] VITALS: BP 138/73
[2019-03-18] MEDS: LACTOBACILLUS RHAMNOSUS GG 1 CAPSULE. PO SCH ×2 (11:21→22:07)
[2019-03-18] MEDS: MELOXICAM 15 MG TABLET. PO SCH (11:22)
[2019-03-18] MEDS: LISINOPRIL 20 MG TABLET PO SCH (11:22)
[2019-03-18 11:59] LABS: ALBUMIN 2.1 g/dL (3.4-5.0); ALBUMIN/GLOBULIN RATIO 0.5 (1.0-1.7); CALCIUM 8.7 mg/dL (8.5-10.1); CREATININE 0.8 mg/dL (0.6-1.0); GFR 71.5; POTASSIUM 3.3 mmol/L (3.5-5.1); TOTAL BILIRUBIN 0.2 mg/dL (0.2-1.0); TOTAL PROTEIN 6.2 g/dL (6.4-8.2)
--- NOTE | 2019-03-18 14:34 | PN ---
DATE: SUBJECTIVE: The patient is resting, slightly propped up in bed, in no apparent distress. She continued to complain of pain in her legs. We did extensive imaging of her ankles, knee and pelvis and none of these showed any evidence of fracture, although her right knee joint showed tricompartmental primary degenerative osteoarthritis with that knee. She has a large right gluteal decubitus ulcer with surrounding cellulitis, for which we started her on IV antibiotic in the form of vancomycin and Zosyn. OBJECTIVE: GENERAL: When I saw her today, she looked pale, not jaundiced or cyanosed from thyromegaly. No jugular venous distension. No lower limb edema. VITAL SIGNS: Her heart rate was 81, blood pressure was 138/73, temperature was 97.3, respiratory rate was 18 and oxygen saturation was 98%. HEAD, EYES, EARS, NOSE AND THROAT: Showed normocephalic, atraumatic. NECK: Supple. HEART: Showed normal first and second heart sounds. No gallop or murmur. CHEST: Clear to auscultation. No crepitation or rhonchi. ABDOMEN: Distended, soft, nontender. No guarding or rigidity. No organomegaly. All hernial orifices intact. Bowel sounds normal. NEUROLOGIC: She was awake, alert, responding appropriately. All cranial nerves intact. She moves her upper extremities to much good extent than her lower extremities. She has an indwelling Alex catheter. She has large gluteal decubitus ulcer, severe intertriginous candidiasis under the breasts, around the periumbilical area, both groins and perianal area. Her intake over the last 24 hours was 1400, output was 925. LABORATORY DATA: Had no lab work done this morning. Yesterday, her white cell count was down to 10,000, hemoglobin 11, hematocrit 34, MCV 89 and platelet count 320,000. Her sedimentation rate was 60 mm per hour. Her C-reactive protein was up to 67.5 mg. Her serum sodium 138, potassium 3.7, chloride 105, bicarbonate 22, anion gap of 11, BUN 23, creatinine 1, estimated GFR was 55 mL per minute. Her glucose was 77, calcium was 9.6. ASSESSMENT: The patient was admitted with: 1. Marked weakness. Apparently, the patient has been sitting in her wheelchair for 10 days, has not been eating or drinking. 2. She has developed large stage 4 right gluteal decubitus ulcer with eschar and surrounding erythema. 3. She is incontinent of urine. 4. Continued to complain of severe pain in her right knee, her right ankle joint and left shoulder. 5. She has numerous pulmonary nodules, particularly in both upper lobes, raising the prospect of either malignancy or miliary tuberculosis. PLAN: My plan is to continue with IV antibiotic. Continue with pain management. We did the tuberculin test and we will order a QuantiFERON. YESICA SCHMIDT MD DR: PATSY/riley JOB#: [id number] / [id number]
[2019-03-18] MEDS: HYDROcodone/APAP 5/325MG 1 TAB TABLET PO PRN (15:44)
[2019-03-18] MEDS ORDERED: VANCOMYCIN 1 GM in IV NORMAL SALINE 250ML 250 ML IV SCH (16:00)
[2019-03-18 16:07] VITALS: BP 160/91
[2019-03-18 19:41] VITALS: BP 150/89
[2019-03-18 23:58] VITALS: BP 130/63
[2019-03-19] MEDS: IV RINGERS SOLUTION,LACTATED 1,000 ML IV SCH ×2 (04:38→17:31)
[2019-03-19 06:04] VITALS: BP 146/81
[2019-03-19] MEDS: PIPERACILLIN/TAZOBACTAM 4.5 GM in IV NORMAL SALINE 50ML 50 ML IV SCH ×3 (06:23→21:25)
[2019-03-19] MEDS: LACTOBACILLUS RHAMNOSUS GG 1 CAPSULE. PO SCH ×2 (08:51→19:41)
[2019-03-19] MEDS: MELOXICAM 15 MG TABLET. PO SCH (08:51)
[2019-03-19] MEDS: NYSTATIN/TRIAMCIN TOPICAL OINTMENT 15GM TUBE. TP SCH ×2 (08:51→19:41)
[2019-03-19] MEDS: LISINOPRIL 20 MG TABLET PO SCH (08:51)
[2019-03-19 11:08] VITALS: BP 145/74
[2019-03-19] MEDS ORDERED: ONDANSETRON PF 4 MG/2 ML VIAL. IV PRN (11:30)
[2019-03-19] MEDS: ENOXAPARIN 40 MG/0.4 ML SYRINGE. SQ SCH (13:44)
[2019-03-19] MEDS: PANTOPRAZOLE 40 MG TABLET. PO SCH (13:45)
[2019-03-19] MEDS: POTASSIUM CHLORIDE 20 MEQ TABLET.ER. PO SCH ×2 (13:45→19:41)
[2019-03-19 14:12] VITALS: BP 138/90
[2019-03-19] MEDS: HYDROcodone/APAP 5/325MG 1 TAB TABLET PO PRN (15:15)
[2019-03-19 15:50] LABS: VANC TR 8.6 mcg/mL (10.0-20.0)
[2019-03-19] MEDS: VANCOMYCIN 1 GM in IV NORMAL SALINE 250ML 250 ML IV SCH (16:00)
[2019-03-19] MEDS ORDERED: VANCOMYCIN 1 GM in IV NORMAL SALINE 250ML 250 ML IV SCH (16:15)
[2019-03-19] MEDS: VANCOMYCIN PER PHARMACY MC PRN (16:17)
--- NOTE | 2019-03-19 16:55 | RAD ---
PQRS Compliance Statement: One or more of the following individualized dose reduction techniques were utilized for this examination: 1. Automated exposure control 2. Adjustment of the mA and/or kV according to patient size 3. Use of iterative reconstruction technique CT lumbar spine and pelvis without contrast 03/19/2019 INDICATION: Severe low back pain, incontinence and inability to walk. COMPARISON: None available. TECHNIQUE: Multiple axial CT images of the lumbar spine and pelvis were obtained without intravenous contrast. Coronal and sagittal reformats are provided. FINDINGS: There is levoconvex scoliosis of the lumbar spine with apex levocurvature at L3-L4. Vertebral body heights are maintained. Sagittal alignment is intact. There is moderate disc height loss at L5-S1. Mild disc height loss at T12-L1 and L1-L2. Mild to moderate intramarginal osteophytosis, most prominent at L5-S1. L1-L2: There is a moderate disc bulge asymmetric to the left. Is mild facet arthropathy. There is moderate left and mild right neuroforaminal stenosis. No spinal canal stenosis. L2-L3: Mild disc bulge. There is mild to moderate facet arthropathy. Mild bilateral neuroforaminal stenosis. No spinal canal stenosis. L3-L4: There is a moderate disc bulge. There is mild to moderate facet arthropathy. There is moderate bilateral neuroforaminal stenosis. Mild to moderate spinal canal stenosis. L4-L5: There is a moderate disc bulges central disc protrusion. Is moderate facet arthropathy with ligamentum flavum infolding. There is moderate neuroforaminal stenosis, left greater than right. There is moderate spinal canal stenosis. L5-S1: Mild disc bulge. There is moderate facet arthropathy, left. In right. There is moderate to severe left and moderate right neuroforaminal stenosis. No significant spinal canal stenosis. Abdominal aorta is normal in caliber. Superior pole right renal cyst is partially profiled measuring 3.6 cm. Motion artifact limits evaluation of the lower pelvis. There may be trace free fluid within the dependent portion of the pelvis. Prominent small bowel loops are identified in the left lower quadrant. Urinary bladder is within normal limits given degree of distention. Alex catheter is identified. Uterus and adnexa are normal by CT. Rectum is normal in caliber. No pathologically enlarged pelvic lymph nodes. Sacrum and coccyx are intact. There is moderate bilateral hip joint space narrowing with marginal osteophytosis. There is either motion artifact are subtle step-off involving the basicervical left femur (series 4, image 34). Superior and inferior pubic rami are intact. There is osseous remodeling of the inferior left pubic ramus suggestive of remote fracture. Fascia appears intact. Acetabula are intact. Sacrum is intact. IMPRESSION: 1. Moderate lumbar spondylosis without acute fracture. Levoconvex scoliosis of the lumbar spine is present. 2. Suspect a nondisplaced fracture involving the basicervical left femur. Further characterization with MRI is recommended as there is motion artifact limiting evaluation. 3. Small volume free fluid in the pelvis. Electronically signed by: Heather Alvarez MD (03/19/2019 4:52 PM) [facility]
[2019-03-19 19:52] VITALS: BP 153/82
--- NOTE | 2019-03-19 20:41 | PN ---
DATE: 03/19/2019 SUBJECTIVE: The patient is resting slightly propped up in bed, in no apparent distress. She is more awake, alert. Her pain is somewhat much better controlled and she was able to eat some of her breakfast. PHYSICAL EXAMINATION: GENERAL: When I examined her, she looked well, slightly pale, but no jaundice, cyanosis, or thyromegaly. No jugular venous distention. No lower limb edema. VITAL SIGNS: Her heart rate was 68, blood pressure 145/74, temperature was 98.8, respiratory rate was 18 and oxygen saturation was 96% on room air. HEAD, EYES, EARS, NOSE AND THROAT: Showed normocephalic, atraumatic. NECK: Supple. HEART: Showed normal first and second heart sounds with no gallop, rub or murmur. CHEST: Clear to auscultation. No crepitation or rhonchi. ABDOMEN: Distended, soft, nontender. No guarding or rigidity. No organomegaly. All hernial orifices intact. Bowel sounds normal. NEUROLOGIC: She is awake, alert, responding appropriately. All cranial nerves are intact. She moves her upper extremities to much good extent than lower extremities. She continued to complain of pain in her right knee and right ankle as well as left shoulder. She has a large right gluteal decubitus ulcer and also severe intertriginous candidiasis below her breast, around her umbilicus, and both groins and the perianal area. Her intake over the last 24 hours was 2200, output was 925. LABORATORY DATA: Her lab work as of yesterday showed a serum sodium 138, potassium 3.3, chloride 106, bicarbonate 24, anion gap of 8, BUN 16, creatinine 0.8. Her estimated GFR was 71 mL per minute. Her glucose was 112, calcium was 8.7. Total bilirubin, AST, ALT, alkaline phosphatase were normal. Total protein was 6.2, albumin was 2.1. Her D-dimer was high at 2.95. ASSESSMENT: 1. Marked weakness. Apparently, the patient has been sitting in her chair for almost 10 days, has not been eating or drinking. 2. She has developed a large stage 4 right gluteal decubitus ulcer with eschar and surrounding erythema. 3. She is incontinent of urine. 4. Continued to complain of severe pain in her right knee, right ankle joint and left shoulder, although x-ray showed no evidence of fracture. 5. She has numerous pulmonary nodules, particularly in both upper lobes raising the suspect of either malignancy or miliary tuberculosis. Her tuberculin test was negative. I did order QuantiFERON test to be done tomorrow. Meanwhile, we will continue with IV antibiotic, continue with pain management. We will add Lovenox for DVT prophylaxis. Her potassium is low also, so I added potassium chloride 20 mEq 3 times a day. I will repeat all her lab work tomorrow and if she qualifies, I might transfer her to [facility] tomorrow. YESICA SCHMIDT MD DR: PATSY/riley JOB#: [id number] / [id number]
[2019-03-19 23:12] VITALS: BP 163/80
[2019-03-20] MEDS: VANCOMYCIN 1 GM in IV NORMAL SALINE 250ML 250 ML IV SCH ×2 (03:55→17:12)
[2019-03-20 05:32] VITALS: BP 175/81
[2019-03-20] MEDS: PIPERACILLIN/TAZOBACTAM 4.5 GM in IV NORMAL SALINE 50ML 50 ML IV SCH ×3 (05:37→21:55)
[2019-03-20 05:57] LABS: HEMATOCRIT 32.7 % (36.0-47.0); HEMOGLOBIN 10.5 g/dL (12.0-15.5); RED BLOOD COUNT 3.74 x10^6/uL (3.50-5.40); RED CELL DISTRIBUTION WIDTH 13.2 % (11.5-14.5); WHITE BLOOD COUNT 10.5 x10^3/uL (4.0-11.0)
[2019-03-20 06:05] LABS: ALBUMIN 2.2 g/dL (3.4-5.0); ALBUMIN/GLOBULIN RATIO 0.6 (1.0-1.7); CALCIUM 8.6 mg/dL (8.5-10.1); CREATININE 0.8 mg/dL (0.6-1.0); GFR 71.5; POTASSIUM 3.4 mmol/L (3.5-5.1); TOTAL BILIRUBIN 0.4 mg/dL (0.2-1.0); TOTAL PROTEIN 6.2 g/dL (6.4-8.2)
[2019-03-20] MEDS: HYDROcodone/APAP 5/325MG 1 TAB TABLET PO PRN ×2 (07:07→15:57)
[2019-03-20] MEDS: IV RINGERS SOLUTION,LACTATED 1,000 ML IV SCH (07:18)
[2019-03-20] MEDS: LACTOBACILLUS RHAMNOSUS GG 1 CAPSULE. PO SCH ×2 (08:56→20:47)
[2019-03-20] MEDS: LISINOPRIL 20 MG TABLET PO SCH (08:56)
[2019-03-20] MEDS: POTASSIUM CHLORIDE 20 MEQ TABLET.ER. PO SCH ×3 (08:57→20:47)
[2019-03-20] MEDS: PANTOPRAZOLE 40 MG TABLET. PO SCH (08:57)
[2019-03-20] MEDS: NYSTATIN/TRIAMCIN TOPICAL OINTMENT 15GM TUBE. TP SCH ×2 (09:00→20:48)
[2019-03-20 11:12] VITALS: BP 145/74
[2019-03-20] MEDS: ENOXAPARIN 40 MG/0.4 ML SYRINGE. SQ SCH (13:10)
[2019-03-20 15:03] VITALS: BP 144/81
[2019-03-20 16:39] LABS: VANC TR 18.4 mcg/mL (10.0-20.0)
[2019-03-20 19:49] VITALS: BP 134/74
[2019-03-20] MEDS: ASCORBIC ACID 500 MG TABLET PO SCH (20:48)
[2019-03-20 23:36] VITALS: BP 147/92
[2019-03-21] MEDS: VANCOMYCIN 1 GM in IV NORMAL SALINE 250ML 250 ML IV SCH ×2 (03:41→16:28)
[2019-03-21] MEDS: HYDROcodone/APAP 5/325MG 1 TAB TABLET PO PRN ×3 (03:49→20:47)
[2019-03-21 04:31] VITALS: BP 144/81
[2019-03-21] MEDS: PIPERACILLIN/TAZOBACTAM 4.5 GM in IV NORMAL SALINE 50ML 50 ML IV SCH ×2 (05:38→14:58)
[2019-03-21 08:06] LABS: BASO # 0.1 x10^3/uL (0.0-0.2); BASO % 1 % (0-3); EOS # 0.4 x10^3/uL (0.0-0.7); EOS % 4 % (0-3); HEMATOCRIT 29.1 % (36.0-47.0); HEMOGLOBIN 9.4 g/dL (12.0-15.5); LYMPH # 1.1 x10^3/uL (1.0-4.8); LYMPH % 12 % (24-48); MEAN CORPUSCULAR HEMOGLOBIN 28 pg (25-35); MEAN CORPUSCULAR HGB CONC 32 g/dL (31-37); MEAN CORPUSCULAR VOLUME 88 fL (79-100); MONO # 0.8 x10^3/uL (0.0-1.1); MONO % 8 % (0-9); NEUT # 7.6 x10^3uL (1.8-7.7); NEUT % 76 % (31-73); PLATELET COUNT 400 x10^3/uL (140-400); RED BLOOD COUNT 3.32 x10^6/uL (3.50-5.40); RED CELL DISTRIBUTION WIDTH 13.6 % (11.5-14.5); WHITE BLOOD COUNT 9.9 x10^3/uL (4.0-11.0)
[2019-03-21 08:06] LABS: ALBUMIN/GLOBULIN RATIO 0.5 (1.0-1.7); CALCIUM 8.4 mg/dL (8.5-10.1); CREATININE 0.8 mg/dL (0.6-1.0); GFR 71.5; POTASSIUM 3.7 mmol/L (3.5-5.1); TOTAL BILIRUBIN 0.3 mg/dL (0.2-1.0); TOTAL PROTEIN 5.7 g/dL (6.4-8.2)
[2019-03-21] MEDS: VANCOMYCIN PER PHARMACY MC PRN (08:24)
[2019-03-21] MEDS: NYSTATIN/TRIAMCIN TOPICAL OINTMENT 15GM TUBE. TP SCH ×2 (09:00→20:47)
[2019-03-21] MEDS ORDERED: MULTIVITAMIN with MINERAL TABLET. PO SCH (09:00)
[2019-03-21] MEDS: LACTOBACILLUS RHAMNOSUS GG 1 CAPSULE. PO SCH ×2 (09:22→20:46)
[2019-03-21] MEDS: PANTOPRAZOLE 40 MG TABLET. PO SCH (09:22)
[2019-03-21] MEDS: POTASSIUM CHLORIDE 20 MEQ TABLET.ER. PO SCH ×3 (09:23→20:47)
[2019-03-21] MEDS: LISINOPRIL 20 MG TABLET PO SCH (09:23)
[2019-03-21] MEDS: ASCORBIC ACID 500 MG TABLET PO SCH ×2 (09:24→20:46)
[2019-03-21 11:00] VITALS: BP 136/82
[2019-03-21] MEDS: ENOXAPARIN 40 MG/0.4 ML SYRINGE. SQ SCH (12:17)
--- NOTE | 2019-03-21 12:17 | PN ---
DATE: 03/20/2019 SUBJECTIVE: The patient is resting, slightly propped up in bed, in no apparent distress. She is definitely more awake, alert, continued to complain of pain in her right knee and right ankle joint. She has worked with physical therapy and managed to sit on the edge of the bed and stand with assistance. Her appetite has improved. She has eaten most of her breakfast and lunch today. We are waiting for insurance approval to be transferred to [facility]. We did a CT scan of her lumbar spine, which showed that the patient has moderate lumbar spondylosis without acute fracture, levoconvex scoliosis, lumbar spine is present. Suspect nondisplaced fracture involving the basic cervical left femur. Further characterization with MRI is recommended as there is motion artifact limiting evaluation. She has small volume free fluid in the pelvis. CT scan of the pelvis showed that she has sacrum and coccyx are intact. There is moderate bilateral hip joint space narrowing with marginal osteophyte. There is either motion artifact or subtle step-off involving the basicervical left femur, series 4, image 34. Superior and inferior pubic rami are intact. There is osseous remodeling with the inferior left pubic ramus suggestive of remote fracture. Fascia appears intact. Acetabula are intact. The abdominal aorta is normal in caliber. Superior pole of the right renal cyst is partially profiled, measuring 3.6 cm motion artifact limits evaluation of the lower pelvis. There may be trace free fluid within the dependent portion of the pelvis, prominent small bowel loops are identified in the left lower quadrant. Urinary bladder is within normal limits, given degree of distention, Alex catheter is identified. Uterus and adnexa are normal by CT. Rectum is normal in caliber. No pathologically enlarged pelvic lymph node. Sacrum are intact. There is a motion artifact. PHYSICAL EXAMINATION: GENERAL: On examining here today, she was resting slightly propped up in bed, in no apparent respiratory distress. No pallor, jaundice, cyanosis or thyromegaly. No jugular venous distention. No limb edema. VITAL SIGNS: Her heart rate was 86, blood pressure 144/81, temperature was 96.1, respiratory rate was 20, and oxygen saturation was 95%. HEAD, EYES, EARS, NOSE AND THROAT: Normocephalic, atraumatic. NECK: Supple. HEART: Showed normal first and second heart sounds with no gallop, rub or murmur. CHEST: Clear to auscultation. No crepitation or rhonchi. ABDOMEN: Distended, scaphoid, soft, nontender. NEUROLOGIC: She is more awake, alert, responding appropriately. All cranial nerves intact. She moves upper extremities without difficulty. She is mostly bed bound. Her intake was 2970, output was 1975. LABORATORY DATA: Showed a white cell count of 10,500, hemoglobin 10.5, hematocrit 33, MCV 87, and platelet count 391,000. Her chemistry showed a serum sodium 139, potassium 3.4, chloride 106, bicarbonate 26, anion gap of 7, BUN 8, creatinine 0.8, estimated GFR was 71 mL per minute. Her glucose was 77, calcium was 8.6. Total bilirubin, AST, ALT, alkaline phosphatase were normal. Total protein was 6.2, albumin was 2.2. ASSESSMENT: 1. Marked weakness. Apparently, the patient has been sitting in her chair for almost 10 days, has been eating or drinking. 2. She has developed a large stage 4 right gluteal decubitus ulcer with eschar and surrounding erythema. 3. She is incontinent of urine. 4. Continued to complain of severe pain in her right knee, right ankle joint and left shoulder, although x-ray showed no evidence of fracture. 5. She has numerous pulmonary nodules, particularly in both upper lobes raising suspect of either the prospect of either malignancy or miliary tuberculosis. Her tuberculin test was negative. I did order QuantiFERON test to be done today. Meanwhile, we will continue with IV antibiotic. Continue pain management. Continue with DVT prophylaxis. I did start her on potassium supplement. Her CT scan of the pelvis showed that there is suspicion of nondisplaced fracture involving the basicervical left femur. Further characterization with MRI is recommended as there is motion artifact limiting evaluation. YESICA SCHMIDT MD DR: PATSY/riley JOB#: [id number] / [id number]
[2019-03-21 15:50] VITALS: BP 167/83
[2019-03-21 19:02] VITALS: BP 132/76
[2019-03-21 20:55] VITALS: BP 149/90
--- NOTE | 2019-03-21 23:46 | DS ---
DATE OF DISCHARGE: HOSPITAL COURSE: The patient is a 68-year-old female patient who was admitted on 03/17/2019 with marked weakness and pain in her right knee and right ankle joint as well as left shoulder. She has been eating and drinking. She has been apparently sitting in a wheelchair for almost 10 days. She was evaluated in the Emergency Room and was found to have large right gluteal decubitus ulcer. She was incontinent of urine and has severe intertriginous candidiasis under her breasts around the periumbilical and umbilical areas as well as groins and perineal area. She has been unable to walk, so we did x-rays of her right ankle, right knee as well as her lumbar spine and pelvic CT scan and pelvic CT scan showed that there is a suspected nondisplaced fracture involving the basicervical left femur. Further characterization with MRI is recommended as there is motion artifact limiting evaluation with small volume of free fluid in the pelvis and therefore, a decision was made to transfer her to [facility] to consult the orthopedic surgeon and to arrange for perhaps nuclear bone scan as their MRI is down at least for today and tomorrow. PHYSICAL EXAMINATION: GENERAL: When I saw her today, she was resting slightly propped up in bed, in no apparent respiratory distress. She looked well and was clearly in no apparent respiratory distress, slightly pale, but no jaundice, cyanosis or thyromegaly. No jugular vein distention, no limb edema. VITAL SIGNS: Her heart rate was 75, blood pressure was 136/82, temperature was 99.1, respiratory rate was 18 and oxygen saturation was 97% on room air. HEAD, EYES, EARS, NOSE AND THROAT: Showed normocephalic, atraumatic. NECK: Supple. HEART: Showed normal first and second heart sounds with no gallop, rub or murmur. CHEST: Clear to auscultation. No crepitation or rhonchi. ABDOMEN: Scaphoid, soft, nontender. NEUROLOGIC: She is awake, alert, responding appropriately. All cranial nerves intact. She moves her upper extremities to much good extent than lower extremities. She is mostly bed bound, wheelchair bound. Most of her pain is actually in her right knee and right ankle joint and left shoulder. Her intake over the last 24 hours was 2970, output was 1970. LABORATORY DATA: Her lab work as of this morning, her white cell count was 9900, hemoglobin 9.4, hematocrit 29, MCV 88 and platelet count of 400,000. Her chemistry showed a serum sodium 140, potassium 3.7, chloride 105, bicarbonate 25, anion gap of 10, BUN 7, creatinine 0.8, estimated GFR was 71 mL per minute. Her glucose was 80, calcium was 8.4. Total bilirubin, AST, ALT, alkaline phosphatase were normal. Total protein was 5.7, albumin 2. Toxic screen showed that her vancomycin trough level was high. Her prothrombin time was 10.9, INR 1.1, aPTT was 32. D-dimer was high at 2.95. Urinalysis was unremarkable. Her urine culture so far showed the growth of less than 10,000 colony forming unit of bacteria. DISCHARGE MEDICATIONS: She will be discharged to [facility] to continue on multivitamin 1 tablet once a day, ascorbic acid tablet 500 mg twice a day, vancomycin 1 gram IV twice a day, potassium chloride 20 mEq 3 times a day, Protonix 40 mg daily, ondansetron 4 mg every 6 hours as needed, Lovenox 40 mg subcutaneously daily, hydrocodone/APAP 5/325 one tablet every 6 hours, Zosyn 4.5 mg IV q. 8 hourly and lactobacillus, rhamnosus 1 capsule twice a day, Mycolog 1 application twice a day and lisinopril 20 mg once a day. FINAL DISCHARGE DIAGNOSES: 1. Marked weakness. Apparently, the patient has been sitting in her chair for almost 10 days and she has not been eating or drinking. 2. She has developed a large stage 4 right gluteal decubitus ulcer with eschar and surrounding erythema. 3. She was incontinent of urine. 4. She continued to complain of severe pain in her right knee, right ankle joint and left shoulder, although x-ray showed no evidence of fracture. 5. She has numerous pulmonary nodules, particularly in both upper lobes raising either malignancy or miliary tuberculosis. Her tuberculin test was negative. I did order QuantiFERON test for her to be done. Meanwhile, we will continue with intravenous antibiotic. She will be discharged to [facility] as she has a suspicion of nondisplaced fracture involving the basicervical left femur to further characterize with MRI. YESICA SCHMIDT MD DR: PATSY/riley JOB#: [id number] / [id number]
== END 2019-03-21 21:05 | disposition short-term general hospital (02) | DRG 551 ==
LOC: ER 17:44 → 1 SOUTH 19:00
PROVIDERS: ADMIT Internal Medicine; ATTEND Internal Medicine
PROC: 02HV33Z Insertion of Infusion Device into Superior Vena Cava, Percutaneous Approach (ICD-10-PCS; principal; 2019-03-17)
DX: M48.00 Spinal stenosis, site unspecified (principal); L89.314 Pressure ulcer of right buttock, stage 4; S42.302A Unspecified fracture of shaft of humerus, left arm, initial encounter for closed fracture; N39.0 Urinary tract infection, site not specified; L03.317 Cellulitis of buttock; L03.90 Cellulitis, unspecified; G93.40 Encephalopathy, unspecified; E86.0 Dehydration; Z99.3 Dependence on wheelchair; B37.2 Candidiasis of skin and nail; R32 Unspecified urinary incontinence; W18.39XA Other fall on same level, initial encounter; Y93.89 Activity, other specified; Y92.89 Other specified places as the place of occurrence of the external cause; Y99.8 Other external cause status; H91.90 Unspecified hearing loss, unspecified ear; M19.079 Primary osteoarthritis, unspecified ankle and foot
CPT/HCPCS: 36415; 36569; 70450; 71045; 71275; 72131; 72170; 72192; 73030; 73560; 73600; 80048; 80053; 80076; 80202; 80307; 81001; 82550; 83690; 83735; 83880; 84443; 84484; 85025; 85027; 85379; 85610; 85651; 85730; 86140; 86481; 87086; 93005; 93970; 94640; 96360; 96361; 97163; G0238; J1650; J2543; J3370; J7040; J7050; J7120; J7620; Q9967; 97110; 97530; 97535; 99285-25

== ENCOUNTER 2019-05-11 21:50 | Inpatient (IN) | payer MEDICARE ==
[~2019-05-11] VITALS: Ht 154.9 cm; Wt 64.6 kg
[~2019-05-11 21:50] MED LIST: LISI-334 PO; MELO15TA23 PO
--- NOTE | 2019-05-11 22:15 | PHYS DOC ---
Past History Past Medical History: No Pertinent History, Arthritis, Dementia, UTI Past Surgical History: No Surgical History, Appendectomy Alcohol Use: None Drug Use: None Adult General HPI HPI Patient is a 68-year-old female who presents to the emergency department via EMS. According to EMS, the patient's , who is wheelchair-bound, called EMS because the patient had not, for a couch for 2 days, and reportedly had been having visual hallucinations that he was climbing the lewis. The patient does have a right buttock decubitus ulcer, and reportedly recently signed herself out of a local rehabilitation facility. She denies any new pain at this time. She has not had a fever recently. She has not had any vomiting, chest pain, or shortness of breath. There are no alleviating or exacerbating factors to her symptoms. Review of Systems Review of Systems Constitutional: Denies fever or chills [] Eyes: Denies change in visual acuity, redness, or eye pain [] HENT: Denies nasal congestion or sore throat [] Respiratory: Denies cough or shortness of breath [] Cardiovascular: The patient denies any shortness of breath, chest pain, palpitations, or orthopnea [] GI: Denies abdominal pain, nausea, vomiting, bloody stools or diarrhea [] : Denies dysuria or hematuria [] Musculoskeletal: Denies back pain or joint pain [] Integument: Denies rash or skin lesions, other than right buttock decubitus ulcer [] Neurologic: Denies headache, focal weakness or sensory changes [] Endocrine: Denies polyuria or polydipsia [] All other systems were reviewed and found to be within normal limits, except as documented in this note. Current Medications Current Medications Current Medications Medications (Trade) Dose Ordered Sig/Rustam Start Time Stop Time Status Last Admin Dose Admin Sodium Chloride 1,000 ml @ 75 mls/hr 1X ONCE 05/11/19 22:30 05/12/19 11:49 Allergies Allergies Allergies Coded Allergies Type Severity Reaction Last Updated Verified No Known Drug Allergies 07/18/16 No Physical Exam Physical Exam PHYSICAL EXAM: CONSTITUTIONAL: The patient is disheveled, in wet clothing smelling of old urine HEAD: normocephalic, atraumatic EENT: PERRL, EOMI. Conjunctivae normal color, sclerae non-icteric; moist mucous membranes. NECK: Supple, non-tender; no meningismus. LUNGS: Lungs CTA, breathing even and unlabored. Normal air movement. HEART: Regular rate and rhythm, no murmur CHEST: No deformity; non-tender ABDOMEN: The abdomen is soft, and non-tender, no masses or bruits. EXTREM: There is limited range of motion to the lower extremities bilaterally; no deformity, no calf tenderness. Normal pulses palpable in all extremities. There is 1+ bilateral pedal edema. SKIN: There is a deep right gluteal/ichial decubitus ulcer, no other rash; no diaphoresis NEURO: Alert; normal speech, mildly impaired cognition suggestive of underlying dementia; CN's grossly intact; strength grossly intact without focal deficit. BACK: No CVA TTP. Current Patient Data Lab Results Laboratory Tests Test 05/11/19 22:24 05/11/19 22:56 Urine Collection Type U cath Urine Color Yellow Urine Clarity Hazy Urine pH 5.5 Urine Specific Jefferson 1.020 Urine Protein Neg Urine Glucose (UA) Neg mg/dL Urine Ketones (Stick) Neg mg/dL Urine Blood Trace Urine Nitrite Pos Urine Bilirubin Neg Urine Urobilinogen Dipstick 0.2 mg/dL Urine Leukocyte Esterase Mod Urine RBC Occ /HPF Urine WBC >40 /HPF Urine Squamous Epithelial Cells Occ /LPF Urine Bacteria Many /HPF White Blood Count 13.9 x10^3/uL Red Blood Count 4.15 x10^6/uL Hemoglobin 11.9 g/dL Hematocrit 37.1 % Mean Corpuscular Volume 89 fL Mean Corpuscular Hemoglobin 29 pg Mean Corpuscular Hemoglobin Concent 32 g/dL Red Cell Distribution Width 15.1 % Platelet Count 355 x10^3/uL Neutrophils (%) (Auto) 80 % Lymphocytes (%) (Auto) 8 % Monocytes (%) (Auto) 10 % Eosinophils (%) (Auto) 1 % Basophils (%) (Auto) 0 % Neutrophils # (Auto) 11.2 x10^3uL Lymphocytes # (Auto) 1.1 x10^3/uL Monocytes # (Auto) 1.4 x10^3/uL Eosinophils # (Auto) 0.2 x10^3/uL Basophils # (Auto) 0.1 x10^3/uL Sodium Level 141 mmol/L Potassium Level 3.7 mmol/L Chloride Level 106 mmol/L Carbon Dioxide Level 24 mmol/L Anion Gap 11 Blood Urea Nitrogen 29 mg/dL Creatinine 1.0 mg/dL Estimated GFR (Cockcroft-Gault) 55.3 BUN/Creatinine Ratio 29 Glucose Level 135 mg/dL Lactic Acid Level 1.5 mmol/L Calcium Level 9.8 mg/dL Magnesium Level 1.8 mg/dL Total Bilirubin 0.2 mg/dL Aspartate Amino Transf (AST/SGOT) 35 U/L Alanine Aminotransferase (ALT/SGPT) 15 U/L Alkaline Phosphatase 73 U/L [id number] Natriuretic Peptide 173 pg/mL Total Protein 7.8 g/dL Albumin 2.8 g/dL Albumin/Globulin Ratio 0.6 Current Medications Medications (Trade) Dose Ordered Sig/Rustam Route PRN Reason Start Time Stop Time Status Last Admin Dose Admin Sodium Chloride 1,000 ml @ 75 mls/hr 1X ONCE IV 05/11/19 22:30 05/12/19 11:49 EKG EKG [] Radiology/Procedures Radiology/Procedures PROCEDURE: CT HEAD WO CONTRAST CT HEAD INDICATION: Altered mental status COMPARISON: 03/16/2019 Exposure: One or more of the following individualized dose reduction techniques were utilized for this examination: 1. Automated exposure control 2. Adjustment of the mA and/or kV according to patient size 3. Use of iterative reconstruction technique TECHNIQUE: 5 mm contiguous axial images were obtained from the skull base to the vertex in both bone and soft tissue algorithm. FINDINGS: Moderate bilateral periventricular white matter hypodensities likely chronic small vessel ischemic disease. Minimal soft tissue swelling the left frontal scalp. No evidence of acute intracranial hemorrhage. No extra-axial fluid collections. No mass effect or midline shift. Ventricular size is appropriate. Basal cisterns are patent. No fractures identified.Quiroz-white differentiation is preserved.Globes and orbits are within normal limits. Paranasal sinuses and mastoid air cells are clear. IMPRESSION: No acute intracranial findings. [] PROCEDURE: PORTABLE CHEST 1V EXAM: CHEST 1 VIEW History: Weakness COMPARISON: 03/17/2019 TECHNIQUE: Single portable radiograph of the chest FINDINGS: The cardiac silhouette is unremarkable. The lungs are clear bilaterally. The costophrenic sulci are clear and well demarcated. Changed probable old fracture proximal left humerus. IMPRESSION: No radiographic evidence of an acute cardiopulmonary process. PROCEDURE: HIP LEFT 2V WITH PELVIS Examination: Frontal view the pelvis 2 views of the left hip HISTORY: History of left hip pain COMPARISON: None available. Findings/ impression: The bilateral femoral heads within the acetabula. Moderate joint space loss identified in the bilateral hip joint likely degenerative changes. Old fracture of the left inferior pubic ramus. There is questionable oblique lucency seen on one of the frontal view of the left hip could be artifactual or intertrochanteric fracture. Recommend CT left hip for further evaluation. Course & Med Decision Making Course & Med Decision Making Pertinent Labs and Imaging studies reviewed. (See chart for details) []The patient's condition remains stable. I spoke with the hospitalist, who accepted the patient to the hospital for further evaluation and treatment. Reviewing the patient's old records from this facility that appears that she was transferred to [facility] for an MRI of her hip. I do not have that report available to me at this time, but I believe the finding if present likely represents an old injury, that has been evaluated in the past. Regardless I did not think that this is an acute emergency and I will defer further evaluation to the patient's admitting physician, was familiar with her, and likely has access to her records at [facility]. I did attempt to locate the patient's chart on that facility his EMR unsuccessfully. Dragon Disclaimer Dragon Disclaimer This electronic medical record was generated, in whole or in part, using a voice recognition dictation system. Departure Departure: Impression: Primary Impression: Urinary tract infection Additional Impressions: Weakness Decubitus ulcer Failure to thrive Disposition: ADMITTED INPATIENT Admitting Physician: Dave Johnson Condition: STABLE Referrals: MEAGAN HAYES MD (PCP) Problem Qualifiers LIZANDRO CISNEROS MD May 11, 2019 22:15
[2019-05-11] MEDS ORDERED: IV NORMAL SALINE 1,000ML 1,000 ML IV ONE (22:30)
[2019-05-11 23:28] LABS: BASO # 0.1 x10^3/uL (0.0-0.2); BASO % 0 % (0-3); EOS # 0.2 x10^3/uL (0.0-0.7); EOS % 1 % (0-3); HEMATOCRIT 37.1 % (36.0-47.0); HEMOGLOBIN 11.9 g/dL (12.0-15.5); LYMPH # 1.1 x10^3/uL (1.0-4.8); LYMPH % 8 % (24-48); MEAN CORPUSCULAR HEMOGLOBIN 29 pg (25-35); MEAN CORPUSCULAR HGB CONC 32 g/dL (31-37); MEAN CORPUSCULAR VOLUME 89 fL (79-100); MONO # 1.4 x10^3/uL (0.0-1.1); MONO % 10 % (0-9); NEUT # 11.2 x10^3uL (1.8-7.7); NEUT % 80 % (31-73); PLATELET COUNT 355 x10^3/uL (140-400); RED BLOOD COUNT 4.15 x10^6/uL (3.50-5.40); RED CELL DISTRIBUTION WIDTH 15.1 % (11.5-14.5); WHITE BLOOD COUNT 13.9 x10^3/uL (4.0-11.0)
[2019-05-11 23:47] LABS: ALBUMIN 2.8 g/dL (3.4-5.0); ALBUMIN/GLOBULIN RATIO 0.6 (1.0-1.7); CALCIUM 9.8 mg/dL (8.5-10.1); GFR 55.3; MAGNESIUM 1.8 mg/dL (1.8-2.4); POTASSIUM 3.7 mmol/L (3.5-5.1); TOTAL BILIRUBIN 0.2 mg/dL (0.2-1.0); TOTAL PROTEIN 7.8 g/dL (6.4-8.2)
[2019-05-11 23:55] LABS: BACTERIA,URINE MANY /HPF (0-FEW); BILIRUBIN,URINE NEG (NEG); CLARITY,URINE HAZY; COLOR,URINE YELLOW; GLUCOSE,URINE NEG (NEG); NITRITE,URINE POS (NEG); RBC,URINE OCC /HPF (0-2); SQUAMOUS EPITHELIAL CELL,UR OCC /LPF; UROBILINOGEN,URINE 0.2 mg/dL (0.2 mg/dL); WBC,URINE >40 /HPF (0-4)
[2019-05-12] MEDS ORDERED: cefTRIAXone SODIUM 1 GM VIAL ONE (00:09)
--- NOTE | 2019-05-12 00:17 | RAD ---
CT HEAD INDICATION: Altered mental status COMPARISON: 03/16/2019 Exposure: One or more of the following individualized dose reduction techniques were utilized for this examination: 1. Automated exposure control 2. Adjustment of the mA and/or kV according to patient size 3. Use of iterative reconstruction technique TECHNIQUE: 5 mm contiguous axial images were obtained from the skull base to the vertex in both bone and soft tissue algorithm. FINDINGS: Moderate bilateral periventricular white matter hypodensities likely chronic small vessel ischemic disease. Minimal soft tissue swelling the left frontal scalp. No evidence of acute intracranial hemorrhage. No extra-axial fluid collections. No mass effect or midline shift. Ventricular size is appropriate. Basal cisterns are patent. No fractures identified.Quiroz-white differentiation is preserved.Globes and orbits are within normal limits. Paranasal sinuses and mastoid air cells are clear. IMPRESSION: No acute intracranial findings. Electronically signed by: Kana Belle MD (05/12/2019 12:14 AM) [facility]
--- NOTE | 2019-05-12 00:19 | RAD ---
Examination: Frontal view the pelvis 2 views of the left hip HISTORY: History of left hip pain COMPARISON: None available. Findings/ impression: The bilateral femoral heads within the acetabula. Moderate joint space loss identified in the bilateral hip joint likely degenerative changes. Old fracture of the left inferior pubic ramus. There is questionable oblique lucency seen on one of the frontal view of the left hip could be artifactual or intertrochanteric fracture. Recommend CT left hip for further evaluation. Electronically signed by: Kana Belle MD (05/12/2019 12:16 AM) [facility]
--- NOTE | 2019-05-12 00:23 | RAD ---
EXAM: CHEST 1 VIEW History: Weakness COMPARISON: 03/17/2019 TECHNIQUE: Single portable radiograph of the chest FINDINGS: The cardiac silhouette is unremarkable. The lungs are clear bilaterally. The costophrenic sulci are clear and well demarcated. Changed probable old fracture proximal left humerus. IMPRESSION: No radiographic evidence of an acute cardiopulmonary process. Electronically signed by: Kana Belle MD (05/12/2019 12:20 AM) [facility]
[2019-05-12 01:37] VITALS: BP 112/76
[2019-05-12] MEDS ORDERED: DICL100G18 TP (02:46)
[2019-05-12] MEDS ORDERED: FAMO20TA5 PO (02:46)
[2019-05-12] MEDS ORDERED: BUSP10TA PO (02:46)
[2019-05-12] MEDS ORDERED: NYST15PO9 TP (02:46)
[2019-05-12] MEDS ORDERED: BACL10TA PO (02:46)
[2019-05-12] MEDS ORDERED: COLL30OI TP (02:46)
[2019-05-12 06:15] VITALS: BP 103/67
[2019-05-12 11:16] VITALS: BP 108/70
[2019-05-12] MEDS: ACETAMINOPHEN 325 MG TABLET PO PRN ×2 (13:58→20:12)
[2019-05-12] MEDS: LISINOPRIL 20 MG TABLET PO SCH (14:30)
[2019-05-12 15:14] VITALS: BP 117/64
[2019-05-12] MEDS: MELOXICAM 15 MG TABLET. PO SCH (16:57)
[2019-05-12] MEDS: busPIRone 10 MG TABLET. PO SCH ×2 (17:03→20:12)
--- NOTE | 2019-05-12 19:34 | CONS ---
DATE OF CONSULTATION: 05/11/2019 HISTORY OF PRESENT ILLNESS: The patient is a 68-year-old female patient, who was brought to the Emergency Room via EMS. According to them, the patient's , who is wheelchair-bound, called the EMS because the patient has been sitting on the couch for the last 2 days. She reportedly had been having visual hallucination that she was climbing the lewis. She does have a right buttock decubitus ulcer and reportedly recently signed herself out of a local rehabilitation facility. She denied any new pain at this time. She has not had any fever recently. Denied any nausea, vomiting, chest pain, or shortness of breath. She was evaluated in the Emergency Room, was admitted with urinary tract infection, weakness, decubitus ulcer, and failure to thrive. Her lab work showed that she has leukocytosis and mild dehydration. Her urinalysis showed that the urine was positive for nitrite. There was large amount of leukocyte esterase and more than 40 wbc's and many bacteria. She was admitted and was started on ceftriaxone 1 g IV daily together with IV fluid. PAST MEDICAL HISTORY: Significant for: 1. Marked weakness, debility, and inability to walk. 2. She has at least stage 2 right gluteal decubitus ulcer. 3. Incontinence of urine. 4. Severe osteoarthritis of her both knees and hip joints as well as severe spinal stenosis. PAST SURGICAL HISTORY: Unremarkable. ALLERGIES: She has no known drug allergies. FAMILY HISTORY: Noncontributory. SOCIAL HISTORY: She is and lives with her , both are wheelchair-bound. She does not smoke, drink alcohol, or use any recreational drugs. 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 They have one daughter who does not really keep in touch. REVIEW OF SYSTEMS: As per history of present illness. PHYSICAL EXAMINATION: GENERAL: On examining her on arrival to the Emergency Room; she looked somewhat pale, but no jaundice, cyanosis, or thyromegaly. No jugular venous distention. No lower limb edema. VITAL SIGNS: Her heart rate was 75, blood pressure was 136/82, temperature was 99.1, respiratory rate was 18, and oxygen saturation was 97%. HEAD, EYES, EARS, NOSE, AND THROAT: Normocephalic, atraumatic. NECK: Supple. HEART: Showed normal first and second heart sounds. No gallop or murmur. CHEST: Clear to auscultation. No crepitation or rhonchi. ABDOMEN: Distended, soft, nontender. No guarding or rigidity. No organomegaly. All hernial orifice intact. Bowel sounds normal. NEUROLOGIC: She is awake, alert. All her cranial nerves intact. She moves upper extremities without difficulty. She has fixed flexion-contraction of both lower extremities. She is mostly wheelchair-bound. She has stage 2 sacral right gluteal decubitus ulcer. She apparently has an indwelling Alex catheter. LABORATORY DATA: Her lab work on arrival to the Emergency Room showed a white cell count of 13,900, hemoglobin 12, hematocrit 37, MCV 89, and platelet count 355,000 with normal manual differential. Her chemistry showed a serum sodium 141, potassium 3.7, chloride 106, bicarbonate 24, anion gap of 11, BUN 29, creatinine 1, estimated GFR was 55 mL per minute. Her glucose 135, calcium was 9.8, Lactic acid was 1.5, magnesium was 1.8. Total bilirubin, AST, ALT, alkaline phosphatase were normal. Her total protein was 7.8, albumin 2.8. She did have an x-ray of her hip and pelvis, which showed that the patient has bilateral femoral condyle within the acetabulum, but there is joint space loss identified in bilateral hip joints likely due to old fracture of the left inferior pubic ramus. There is questionable complete lucency seen in one of the frontal views of the left hip, could be artifact or intertrochanteric fracture. Recommend CT left hip for further evaluation. Chest x-ray was unremarkable, which showed no radiographic evidence of acute cardiopulmonary process. CT scan of the head showed no acute intracranial finding. ASSESSMENT AND PLAN: In summary, this is a 68-year-old female patient who yet again came to the hospital with marked weakness. She was found to have right gluteal decubitus ulcer, urinary tract infection, failure to thrive, and marked muscle wasting. We will continue with IV fluid and IV antibiotic and we will continue with wound care. We will adjust antibiotic according to finding of the urine culture. YESICA SCHMIDT MD DR: PATSY/riley JOB#: [id number] / [id number]
[2019-05-12 19:42] VITALS: BP 120/71
[2019-05-12] MEDS: BACLOFEN 10 MG TABLET PO SCH (20:12)
[2019-05-12] MEDS: FAMOTIDINE 20 MG TABLET PO SCH (20:12)
[2019-05-12] MEDS: DICLOFENAC SODIUM 1% TOPICAL GEL 100GM TUBE. TP SCH (21:25)
[2019-05-12] MEDS: NYSTATIN TOPICAL POWDER 15GM BOTTLE. TP SCH (21:26)
--- NOTE | 2019-05-12 21:35 | PDOC ---
Exam Note: Preston Note: Please also refer to the separate dictated note~for this date of service dictated separately.~Patient seen individually. Discussed the patient with Nursing staff reviewed the chart.~Reviewed interim history and current functioning. Reviewed vital signs,~Labs/ Radiology~and current medications noted below. Continue current treatment with the changes noted in the dictated addendum note Assessment: Vital Signs/I&O: Vital Signs Date Time Temp Pulse Resp B/P (MAP) Pulse Ox O2 Delivery O2 Flow Rate FiO2 05/12/19 19:42 98.3 79 20 120/71 (87) 96 Room Air I & O 05/11/19 05/11/19 05/12/19 15:00 23:00 07:00 Intake Total 480 ml Output Total 400 ml Balance 80 ml Labs: Laboratory Tests Test 05/11/19 22:24 05/11/19 22:56 Urine Collection Type U cath Urine Color Yellow Urine Clarity Hazy Urine pH 5.5 Urine Specific [place] 1.020 Urine Protein Neg (NEG-TRACE) Urine Glucose (UA) Neg mg/dL (NEG) Urine Ketones (Stick) Neg mg/dL (NEG) Urine Blood Trace (NEG) Urine Nitrite Pos (NEG) Urine Bilirubin Neg (NEG) Urine Urobilinogen Dipstick 0.2 mg/dL (0.2 mg/dL) Urine Leukocyte Esterase Mod (NEG) Urine RBC Occ /HPF (0-2) Urine WBC >40 /HPF (0-4) Urine Squamous Epithelial Cells Occ /LPF Urine Bacteria Many /HPF (0-FEW) White Blood Count 13.9 x10^3/uL (4.0-11.0) H Red Blood Count 4.15 x10^6/uL (3.50-5.40) Hemoglobin 11.9 g/dL (12.0-15.5) L Hematocrit 37.1 % (36.0-47.0) Mean Corpuscular Volume 89 fL (79-100) Mean Corpuscular Hemoglobin 29 pg (25-35) Mean Corpuscular Hemoglobin Concent 32 g/dL (31-37) Red Cell Distribution Width 15.1 % (11.5-14.5) H Platelet Count 355 x10^3/uL (140-400) Neutrophils (%) (Auto) 80 % (31-73) H Lymphocytes (%) (Auto) 8 % (24-48) L Monocytes (%) (Auto) 10 % (0-9) H Eosinophils (%) (Auto) 1 % (0-3) Basophils (%) (Auto) 0 % (0-3) Neutrophils # (Auto) 11.2 x10^3uL (1.8-7.7) H Lymphocytes # (Auto) 1.1 x10^3/uL (1.0-4.8) Monocytes # (Auto) 1.4 x10^3/uL (0.0-1.1) H Eosinophils # (Auto) 0.2 x10^3/uL (0.0-0.7) Basophils # (Auto) 0.1 x10^3/uL (0.0-0.2) Sodium Level 141 mmol/L (136-145) Potassium Level 3.7 mmol/L (3.5-5.1) Chloride Level 106 mmol/L (98-107) Carbon Dioxide Level 24 mmol/L (21-32) Anion Gap 11 (6-14) Blood Urea Nitrogen 29 mg/dL (7-20) H Creatinine 1.0 mg/dL (0.6-1.0) Estimated GFR (Cockcroft-Gault) 55.3 BUN/Creatinine Ratio 29 (6-20) H Glucose Level 135 mg/dL (70-99) H Lactic Acid Level 1.5 mmol/L (0.4-2.0) Calcium Level 9.8 mg/dL (8.5-10.1) Magnesium Level 1.8 mg/dL (1.8-2.4) Total Bilirubin 0.2 mg/dL (0.2-1.0) Aspartate Amino Transferase (AST) 35 U/L (15-37) Alanine Aminotransferase (ALT) 15 U/L (14-59) Alkaline Phosphatase 73 U/L (46-116) YH-Odz-D-Type Natriuretic Peptide 173 pg/mL (0-124) H Total Protein 7.8 g/dL (6.4-8.2) Albumin 2.8 g/dL (3.4-5.0) L Albumin/Globulin Ratio 0.6 (1.0-1.7) L Current Medications: Meds: Current Medications Medications (Trade) Dose Ordered Sig/Rustam Route PRN Reason Start Time Stop Time Status Last Admin Dose Admin Sodium Chloride 1,000 ml @ 75 mls/hr 1X ONCE IV 05/11/19 22:30 05/12/19 11:50 DC 05/11/19 22:05 Ceftriaxone Sodium 1 gm/ Sodium Chloride 50 ml @ 100 mls/hr 1X ONCE IV 05/12/19 00:00 05/12/19 00:30 DC 05/12/19 00:18 Acetaminophen (Tylenol) 650 mg PRN Q6HRS PRN PO PAIN / TEMP 05/12/19 03:15 05/12/19 20:12 Baclofen (Lioresal) 10 mg HS PO 05/12/19 21:00 05/12/19 20:12 Buspirone HCl (Buspar) 10 mg QID PO 05/12/19 17:00 05/12/19 20:12 Diclofenac Sodium (Voltaren) 1 eric BID TP 05/12/19 21:00 05/12/19 21:25 Famotidine (Pepcid) 20 mg DAILY PO 05/12/19 21:00 05/12/19 20:12 Meloxicam (Mobic) 15 mg DAILY PO 05/12/19 14:30 05/12/19 16:57 Nystatin (Nystop) 1 eric BID TP 05/12/19 21:00 05/12/19 21:26 Ceftriaxone Sodium 1 gm/ Sodium Chloride 50 ml @ 100 mls/hr Q24H IV 05/12/19 21:00 05/12/19 20:11 I have reviewed the current psychotropics carefully including drug interactions. Risk benefit ratio favors no change other than as noted in my dictated progress note. Diagnosis: Problems: (1) Decubitus ulcer (2) Pain in right knee (3) Pain in left shoulder (4) Pain in joint of right ankle (5) Major depressive disorder, recurrent episode (6) Left displaced femoral neck fracture (7) Urinary tract infection (8) Failure to thrive (9) Weakness KURT CARTER MD May 12, 2019 21:35
[2019-05-12 22:45] VITALS: BP 101/66
--- NOTE | 2019-05-13 04:46 | PN ---
DATE: 05/12/2019 SUBJECTIVE: The patient is resting, slightly propped up in bed, in no apparent respiratory distress. She is crying. She is still convinced that she will be able to go home and live there, although this is the second time she comes where they found her wheelchair-bound and clearly unable to take care of herself. I tried to reason with her, but I do not think she really realized the extent of her problems. PHYSICAL EXAMINATION: GENERAL: When I examined her, she looked pale, but no jaundice, cyanosis or thyromegaly. No jugular venous distention. No lower limb edema. VITAL SIGNS: Her heart rate was 80, blood pressure was 108/70, temperature was 98, respiratory rate was 20 and oxygen saturation was 91%. The rest of clinical exam is stable, has not really changed. LABORATORY DATA: No lab work done today. PLAN: My plan is to continue with IV ceftriaxone, and await the result of the culture and sensitivity. Continue with wound care. Continue with physical and occupational therapy. YESICA SCHMIDT MD DR: PATSY/riley JOB#: [id number] / [id number]
[2019-05-13] MEDS: ACETAMINOPHEN 325 MG TABLET PO PRN (05:17)
[2019-05-13 05:35] VITALS: BP 117/76
[2019-05-13 06:57] LABS: BASO # 0.1 x10^3/uL (0.0-0.2); BASO % 1 % (0-3); EOS # 0.4 x10^3/uL (0.0-0.7); EOS % 4 % (0-3); HEMATOCRIT 32.3 % (36.0-47.0); HEMOGLOBIN 10.6 g/dL (12.0-15.5); LYMPH # 1.1 x10^3/uL (1.0-4.8); LYMPH % 13 % (24-48); MEAN CORPUSCULAR HEMOGLOBIN 29 pg (25-35); MEAN CORPUSCULAR HGB CONC 33 g/dL (31-37); MEAN CORPUSCULAR VOLUME 88 fL (79-100); MONO # 0.9 x10^3/uL (0.0-1.1); MONO % 10 % (0-9); NEUT # 6.5 x10^3uL (1.8-7.7); NEUT % 72 % (31-73); PLATELET COUNT 340 x10^3/uL (140-400); RED BLOOD COUNT 3.66 x10^6/uL (3.50-5.40); RED CELL DISTRIBUTION WIDTH 15.1 % (11.5-14.5)
[2019-05-13 07:08] LABS: ALBUMIN 2.2 g/dL (3.4-5.0); ALBUMIN/GLOBULIN RATIO 0.5 (1.0-1.7); CALCIUM 9.2 mg/dL (8.5-10.1); CREATININE 0.8 mg/dL (0.6-1.0); GFR 71.5; POTASSIUM 3.6 mmol/L (3.5-5.1); TOTAL BILIRUBIN 0.2 mg/dL (0.2-1.0); TOTAL PROTEIN 6.5 g/dL (6.4-8.2)
[2019-05-13] MEDS: FAMOTIDINE 20 MG TABLET PO SCH (08:52)
[2019-05-13] MEDS: busPIRone 10 MG TABLET. PO SCH ×3 (08:52→16:29)
[2019-05-13] MEDS: MELOXICAM 15 MG TABLET. PO SCH (08:52)
[2019-05-13] MEDS: LISINOPRIL 20 MG TABLET PO SCH (08:52)
[2019-05-13] MEDS: NYSTATIN TOPICAL POWDER 15GM BOTTLE. TP SCH ×2 (08:52→21:00)
[2019-05-13] MEDS: DICLOFENAC SODIUM 1% TOPICAL GEL 100GM TUBE. TP SCH ×3 (08:53→21:00)
[2019-05-13] MEDS ORDERED: COLLAGENASE CLOSTRIDIUM HIST TP SCH (09:00)
[2019-05-13 10:41] VITALS: BP 110/73
--- NOTE | 2019-05-13 11:16 | PN ---
DATE: 05/13/2019 SUBJECTIVE: The patient is resting slightly propped up in bed, in no apparent respiratory distress. She is complaining of pain in her right gluteal area, right knee. Tylenol is not effective according to her. OBJECTIVE: GENERAL: When I examined her, she looked pale, but no jaundice, cyanosis or thyromegaly. No jugular venous distension. No limb edema. VITAL SIGNS: Her heart rate was 65, blood pressure was 117/76, temperature was 97.6, respiratory rate was 18 and oxygen saturation was 98%. HEAD, EYES, EARS, NOSE AND THROAT: Showed normocephalic, atraumatic. NECK: Supple. CARDIAC: Normal first and second heart sounds. No gallop or murmur. CHEST: Clear to auscultation. No crepitation or rhonchi. ABDOMEN: Scaphoid, soft, nontender. NEUROLOGIC: She is awake, alert. All other cranial nerves are intact. She moves upper extremities without difficulty. She has fixed flexion contraction of both lower extremities. She is mostly bedbound, chair bound. She has right gluteal decubitus ulcer. Her intake over the last 24 hours was incompletely recorded. LABORATORY DATA: Lab work as of this morning showed a white cell count 9000, hemoglobin 10, hematocrit 32, MCV 88 and platelet count 340,000. Her chemistry showed a serum sodium 141, potassium 3.6, chloride 108, bicarbonate 23, anion gap of 10, BUN 21, creatinine 0.8, estimated GFR was 71 mL per minute. Her glucose 113, calcium was 9.2. Total bilirubin, AST, ALT, alkaline phosphatase were normal. Total protein was 6.5, albumin 2.2. ASSESSMENT: 1. Urinary tract infection for which she is to continue with IV ceftriaxone. 2. Dehydration, for which she is on IV fluid. Her BUN and creatinine are coming down nicely. 3. Generalized osteoarthritis and osteoporosis. 4. Spinal stenosis, right gluteal decubitus ulcer. 5. Fixed flexion contraction of both lower extremities. PLAN: To continue with rehydration, continue with IV antibiotic and await the result of the culture and sensitivity. I had a lengthy discussion with her as the patient is unable to take care of herself and she needs to be in a long-term care facility. She is total care. She can only feed herself, but she cannot do anything else. YESICA SCHMIDT MD DR: Leena JOB#: [id number] / [id number]
[2019-05-13] MEDS: HYDROcodone/APAP 5/325MG 1 TAB TABLET PO PRN ×2 (13:04→21:26)
[2019-05-13 16:01] VITALS: BP 94/58
[2019-05-13 19:00] VITALS: BP 129/72
[2019-05-13] MEDS: BACLOFEN 10 MG TABLET PO SCH (21:20)
--- NOTE | 2019-05-13 22:04 | PDOC ---
Exam Note: Preston Note: Please also refer to the separate dictated note~for this date of service dictated separately.~Patient seen individually. Discussed the patient with Nursing staff reviewed the chart.~Reviewed interim history and current functioning. Reviewed vital signs,~Labs/ Radiology~and current medications noted below. Continue current treatment with the changes noted in the dictated addendum note Assessment: Vital Signs/I&O: Vital Signs Date Time Temp Pulse Resp B/P (MAP) Pulse Ox O2 Delivery O2 Flow Rate FiO2 05/13/19 21:26 20 95 Room Air 05/13/19 19:00 98.1 65 129/72 (91) I & O 05/12/19 05/12/19 05/13/19 15:00 23:00 07:00 Intake Total 560 ml 1104 ml 150 ml Output Total 450 ml Balance 560 ml 654 ml 150 ml Labs: Laboratory Tests Test 05/13/19 06:32 White Blood Count 9.0 x10^3/uL (4.0-11.0) Red Blood Count 3.66 x10^6/uL (3.50-5.40) Hemoglobin 10.6 g/dL (12.0-15.5) L Hematocrit 32.3 % (36.0-47.0) L Mean Corpuscular Volume 88 fL (79-100) Mean Corpuscular Hemoglobin 29 pg (25-35) Mean Corpuscular Hemoglobin Concent 33 g/dL (31-37) Red Cell Distribution Width 15.1 % (11.5-14.5) H Platelet Count 340 x10^3/uL (140-400) Neutrophils (%) (Auto) 72 % (31-73) Lymphocytes (%) (Auto) 13 % (24-48) L Monocytes (%) (Auto) 10 % (0-9) H Eosinophils (%) (Auto) 4 % (0-3) H Basophils (%) (Auto) 1 % (0-3) Neutrophils # (Auto) 6.5 x10^3uL (1.8-7.7) Lymphocytes # (Auto) 1.1 x10^3/uL (1.0-4.8) Monocytes # (Auto) 0.9 x10^3/uL (0.0-1.1) Eosinophils # (Auto) 0.4 x10^3/uL (0.0-0.7) Basophils # (Auto) 0.1 x10^3/uL (0.0-0.2) Sodium Level 141 mmol/L (136-145) Potassium Level 3.6 mmol/L (3.5-5.1) Chloride Level 108 mmol/L (98-107) H Carbon Dioxide Level 23 mmol/L (21-32) Anion Gap 10 (6-14) Blood Urea Nitrogen 21 mg/dL (7-20) H Creatinine 0.8 mg/dL (0.6-1.0) Estimated GFR (Cockcroft-Gault) 71.5 BUN/Creatinine Ratio 26 (6-20) H Glucose Level 113 mg/dL (70-99) H Calcium Level 9.2 mg/dL (8.5-10.1) Total Bilirubin 0.2 mg/dL (0.2-1.0) Aspartate Amino Transferase (AST) 24 U/L (15-37) Alanine Aminotransferase (ALT) 16 U/L (14-59) Alkaline Phosphatase 56 U/L (46-116) Total Protein 6.5 g/dL (6.4-8.2) Albumin 2.2 g/dL (3.4-5.0) L Albumin/Globulin Ratio 0.5 (1.0-1.7) L Current Medications: Meds: Current Medications Medications (Trade) Dose Ordered Sig/Rustam Route PRN Reason Start Time Stop Time Status Last Admin Dose Admin Acetaminophen/ Hydrocodone Bitart (Lortab 5/325) 1 tab PRN Q6HRS PRN PO PAIN 05/13/19 10:15 05/13/19 21:26 I have reviewed the current psychotropics carefully including drug interactions. Risk benefit ratio favors no change other than as noted in my dictated progress note. Diagnosis: Problems: (1) Decubitus ulcer (2) Pain in right knee (3) Pain in left shoulder (4) Pain in joint of right ankle (5) Major depressive disorder, recurrent episode (6) Left displaced femoral neck fracture (7) Urinary tract infection (8) Failure to thrive (9) Weakness KURT CARTER MD May 13, 2019 22:04
[2019-05-14] MEDS: busPIRone 10 MG TABLET. PO SCH ×2 (05:43→17:49)
[2019-05-14 06:49] VITALS: BP 149/82
--- NOTE | 2019-05-14 07:05 | CONS ---
DATE OF CONSULTATION: 05/12/2019 PSYCHIATRIC CONSULTATION This late entry 05/12/2019 covers elements not covered in my initial note 05/12/2019. I met with the patient evening of 05/12/2019, discussed with nursing staff, reviewed the chart. IDENTIFYING DATA: The patient is a 68-year-old female seen in room 105, [address] [place] [address], for a psychiatric consultation requested by Dr. Johnson on account of the patient's worsening symptoms of depression, leading to lack of self-care. Reportedly, per nursing staff, the patient lacks motivation to care for self at home, which has led to immobility and wounds on the patient. She lives at home with her who himself is in a wheelchair. They get some services provided, but she has been progressively deteriorating. I have been asked to consult from a psychiatric standpoint to make recommendations for her depression and social service staff is evaluating the home situation for placement options. CHIEF COMPLAINT: "I am okay." The patient is quite hard of hearing. I had to talk loudly into her left ear. HISTORY OF PRESENT ILLNESS: The patient was brought to the ER via EMS. According to the EMS, the patient's , who is wheelchair bound, called the EMS because the patient had been sitting on the couch for the last 2 days. She reportedly was having visual hallucinations that she was climbing the lewis. She does have a right buttock decubitus ulcer and reportedly recently signed herself out of her Rehabilitation facility. She has had no fever recently. She additionally had a UTI found in the ER, weakness, decubitus ulcer, failure to thrive and was admitted to [address] [place] [address]. Her lab work showed that she had leukocytosis, mild dehydration. UA was positive for nitrites. There was a large amount of leukocyte esterase, 40 wbc's, many bacteria and she was started on IV Rocephin 1 gram daily together with IV fluids. She minimizes memory problems. PAST PSYCHIATRIC HISTORY: Positive for depression, short-term memory deficits. PAST MEDICAL HISTORY: In addition to the UTI, she has marked weakness, debility, inability to walk, stage 2 right gluteal decubitus ulcers, incontinence of urine, severe osteoarthritis both knees, hip joints as well as severe spinal stenosis. PAST SURGICAL HISTORY: Noncontributory. DRUG ALLERGIES: Negative. FAMILY HISTORY: Noncontributory. SOCIAL HISTORY: The patient is and lives with her and as noted above, both are wheelchair bound. No alcohol or drug abuse history. 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 She has 1 daughter who does not really keep in touch with her. When I questioned the patient, she said her daughter lives in [place] and does not have a car and therefore does not get to her. MENTAL STATUS EXAMINATION: The patient was seen individually evening of 05/12/2019. She is oriented to herself and situation, quite hard of hearing. Speech is often responses monosyllabic. She was pleasant, verbal. She was approximately correct on the date and the year, unable to do serial 7's at all, difficulty with spelling world backward. Nursing staff have noted intermittent hallucinations, but she does have a UTI, which might account for it. No active suicidal or homicidal ideation. Attention span at times is short. LABORATORY DATA: Reviewed. IMPRESSION: Major depressive disorder. Mild cognitive impairment. Rest diagnoses as noted above. PLAN: From a psychiatric standpoint, the patient is on BuSpar 10 mg 4 times a day. Given some of her mood symptoms, I would suggest starting Prozac 5 mg a day. It is unclear whether the current dosage of BuSpar is really necessary and we will drop it down to 10 mg twice a day. I do feel that much of her psychotic symptoms and worsening cognitive impairment is probably explained by her UTI and should improve. Nevertheless, social service staff should assess the home situation because from the description given by the patient, it seems tenuous. Dr. Johnson, thank you for the opportunity to participate in your patient's care. We will follow with you. MAN Jeri CARTER MD DR: MATT/riley JOB#: [id number] / [id number]
[2019-05-14] MEDS: NYSTATIN TOPICAL POWDER 15GM BOTTLE. TP SCH ×2 (08:38→20:51)
[2019-05-14] MEDS: FAMOTIDINE 20 MG TABLET PO SCH (08:38)
[2019-05-14] MEDS: LISINOPRIL 20 MG TABLET PO SCH (08:38)
[2019-05-14] MEDS: MELOXICAM 15 MG TABLET. PO SCH (08:38)
[2019-05-14] MEDS: DICLOFENAC SODIUM 1% TOPICAL GEL 100GM TUBE. TP SCH ×2 (08:39→20:51)
[2019-05-14] MEDS ORDERED: FLU VAX QS 2019-20 (36MOS+)/PF 0.5 ML SYRINGE. VAX IM ONE (09:00)
[2019-05-14] MEDS: ACETAMINOPHEN 325 MG TABLET PO PRN (17:49)
[2019-05-14 18:35] VITALS: BP 123/69
[2019-05-14] MEDS: HYDROcodone/APAP 5/325MG 1 TAB TABLET PO PRN (19:11)
[2019-05-14] MEDS: BACLOFEN 10 MG TABLET PO SCH (20:51)
--- NOTE | 2019-05-14 21:38 | PDOC ---
Exam Note: Preston Note: Please also refer to the separate dictated note~for this date of service dictated separately.~Patient seen individually. Discussed the patient with Nursing staff reviewed the chart.~Reviewed interim history and current functioning. Reviewed vital signs,~Labs/ Radiology~and current medications noted below. Continue current treatment with the changes noted in the dictated addendum note Assessment: Vital Signs/I&O: Vital Signs Date Time Temp Pulse Resp B/P (MAP) Pulse Ox O2 Delivery O2 Flow Rate FiO2 05/14/19 20:15 18 Room Air 05/14/19 18:35 97.6 78 123/69 (87) 98 I & O 05/13/19 05/13/19 05/14/19 15:00 23:00 07:00 Intake Total 600 ml 1040 ml 100 ml Output Total 700 ml 50 ml Balance 600 ml 340 ml 50 ml Current Medications: Meds: Current Medications Medications (Trade) Dose Ordered Sig/Rustam Route PRN Reason Start Time Stop Time Status Last Admin Dose Admin Influenza Virus Vaccine Quadrival (Afluria Quad 2018- (3yr Up) Syringe) 0.5 ml ONCE ONCE VAX IM 05/14/19 09:00 05/14/19 09:01 DC 05/14/19 08:42 Buspirone HCl (Buspar) 10 mg BID66 PO 05/14/19 06:00 05/14/19 17:49 I have reviewed the current psychotropics carefully including drug interactions. Risk benefit ratio favors no change other than as noted in my dictated progress note. Diagnosis: Problems: (1) Decubitus ulcer (2) Pain in right knee (3) Pain in left shoulder (4) Pain in joint of right ankle (5) Major depressive disorder, recurrent episode (6) Left displaced femoral neck fracture (7) Urinary tract infection (8) Failure to thrive (9) Weakness KURT CARTER MD May 14, 2019 21:38
--- NOTE | 2019-05-15 02:36 | PN ---
DATE: 05/14/2019 SUBJECTIVE: The patient is resting, slightly propped up in bed, in no apparent distress. She is awake, alert. Stated her pain is much better in her right gluteal area and also her knees. Her urine culture has grown more than 100,000 colony forming units per mL of Escherichia coli. The sensitivity is still pending at the time of this dictation. Her blood cultures are so far negative. PHYSICAL EXAMINATION: GENERAL: When I examined her, she was pale, but no jaundice, cyanosis or thyromegaly. No jugular venous distention. No limb edema. VITAL SIGNS: Her heart rate was 67, blood pressure 149/82, temperature was 97.6, respiratory rate 20, and oxygen saturation was 97%. The rest of clinical examination is stable. EXTREMITIES: The patient has stage 3 right gluteal decubitus ulcer with some necrotic center, but no surrounding erythema, it is covered with dressing. She has fixed flexion contraction of both knee joints, severe osteoarthritis. Her intake over the last 24 hours was 2050, output was 450. LABORATORY DATA: As of yesterday, her BUN was 21, creatinine 0.8. White cell count was 9000, hemoglobin 10, hematocrit 32, MCV 88 and platelet count 240,000. ASSESSMENT: 1. Urinary tract infection with a growth of more than 100,000 colony forming units per mL of Escherichia coli. The sensitivity is still pending. The patient continued to be on IV ceftriaxone. 2. Dehydration, improved. Her BUN and creatinine are trending down. 3. Generalized osteoarthritis and osteoporosis. 4. Spinal stenosis. 5. Right gluteal decubitus ulcer. 6. Fixed flexion contraction of both lower extremities. 7. Severe self-care deficit. PLAN: To continue with hydration. Continue IV antibiotic. I have had a lengthy discussion with her as the patient is unable to take care of herself and this is the second time coming to the hospital. She will consult with our clinical case manager as the patient needs to be in a long-term care facility. YESICA SCHMIDT MD DR: PATSY/riley JOB#: [id number] / [id number]
[2019-05-15 05:30] VITALS: BP 138/84
[2019-05-15] MEDS: busPIRone 10 MG TABLET. PO SCH ×2 (06:03→17:53)
[2019-05-15] MEDS: HYDROcodone/APAP 5/325MG 1 TAB TABLET PO PRN ×2 (06:04→17:54)
[2019-05-15 06:23] LABS: HEMATOCRIT 33.4 % (36.0-47.0); HEMOGLOBIN 10.7 g/dL (12.0-15.5); RED BLOOD COUNT 3.83 x10^6/uL (3.50-5.40); RED CELL DISTRIBUTION WIDTH 14.9 % (11.5-14.5); WHITE BLOOD COUNT 7.7 x10^3/uL (4.0-11.0)
[2019-05-15 06:37] LABS: CALCIUM 8.9 mg/dL (8.5-10.1); CREATININE 0.7 mg/dL (0.6-1.0); GFR 83.5; POTASSIUM 3.7 mmol/L (3.5-5.1)
[2019-05-15] MEDS: FAMOTIDINE 20 MG TABLET PO SCH (08:52)
[2019-05-15] MEDS: MELOXICAM 15 MG TABLET. PO SCH (08:53)
[2019-05-15] MEDS: LISINOPRIL 20 MG TABLET PO SCH (08:56)
[2019-05-15] MEDS: NYSTATIN TOPICAL POWDER 15GM BOTTLE. TP SCH ×2 (08:56→20:35)
[2019-05-15] MEDS ORDERED: FLUoxetine HCL 10 MG CAPSULE PO SCH (09:00)
[2019-05-15] MEDS: DICLOFENAC SODIUM 1% TOPICAL GEL 100GM TUBE. TP SCH ×3 (09:02→20:38)
[2019-05-15 12:39] VITALS: BP 128/79
--- NOTE | 2019-05-15 16:09 | PN ---
DATE: 05/13/2019 PSYCHIATRIC PROGRESS NOTE This late entry 05/13/2019 covers elements not covered in my initial note. SUBJECTIVE: I met with the patient evening of 05/13/2019. Per nursing report, the patient is doing better, still depressed, minimizes her mood symptoms. Does have short term memory deficits. REVIEW OF SYSTEMS: Hard of hearing. No CV, , pulmonary, eye system symptoms on review. MENTAL STATUS EXAM: Oriented to herself and situation. Speech is ____ coherent, often responses monosyllabic. Abstraction fair, computation impaired, language function intact. Mood and affect somewhat withdrawn. LABORATORY DATA: Reviewed. IMPRESSION: Unchanged from initial note. PLAN: No change from initial note. KURT CARTER MD DR: MATT/riley JOB#: [id number] / [id number]
[2019-05-15 19:37] VITALS: BP 166/83
[2019-05-15] MEDS: LACTOBACILLUS RHAMNOSUS GG 1 CAPSULE. PO SCH (20:35)
[2019-05-15] MEDS: CEFDINIR 300 MG CAPSULE PO SCH (20:35)
[2019-05-15] MEDS: BACLOFEN 10 MG TABLET PO SCH (20:35)
[2019-05-15] MEDS: ASCORBIC ACID 500 MG TABLET PO SCH (20:35)
--- NOTE | 2019-05-15 21:29 | PDOC ---
Exam Note: Preston Note: Please also refer to the separate dictated note~for this date of service dictated separately.~Patient seen individually. Discussed the patient with Nursing staff reviewed the chart.~Reviewed interim history and current functioning. Reviewed vital signs,~Labs/ Radiology~and current medications noted below. Continue current treatment with the changes noted in the dictated addendum note Assessment: Vital Signs/I&O: Vital Signs Date Time Temp Pulse Resp B/P (MAP) Pulse Ox O2 Delivery O2 Flow Rate FiO2 05/15/19 19:46 Room Air 05/15/19 19:44 20 05/15/19 19:37 98.2 86 166/83 (110) 96 I & O 05/14/19 05/14/19 05/15/19 15:00 23:00 07:00 Intake Total 387 ml 100 ml Output Total 1000 ml 550 ml Balance -1000 ml 387 ml -450 ml Labs: Laboratory Tests Test 05/15/19 06:03 White Blood Count 7.7 x10^3/uL (4.0-11.0) Red Blood Count 3.83 x10^6/uL (3.50-5.40) Hemoglobin 10.7 g/dL (12.0-15.5) L Hematocrit 33.4 % (36.0-47.0) L Mean Corpuscular Volume 87 fL (79-100) Mean Corpuscular Hemoglobin 28 pg (25-35) Mean Corpuscular Hemoglobin Concent 32 g/dL (31-37) Red Cell Distribution Width 14.9 % (11.5-14.5) H Platelet Count 369 x10^3/uL (140-400) Sodium Level 140 mmol/L (136-145) Potassium Level 3.7 mmol/L (3.5-5.1) Chloride Level 108 mmol/L (98-107) H Carbon Dioxide Level 23 mmol/L (21-32) Anion Gap 9 (6-14) Blood Urea Nitrogen 17 mg/dL (7-20) Creatinine 0.7 mg/dL (0.6-1.0) Estimated GFR (Cockcroft-Gault) 83.5 Glucose Level 89 mg/dL (70-99) Calcium Level 8.9 mg/dL (8.5-10.1) Current Medications: Meds: Current Medications Medications (Trade) Dose Ordered Sig/Rustam Route PRN Reason Start Time Stop Time Status Last Admin Dose Admin Fluoxetine HCl (PROzac) 10 mg QODAY PO 05/15/19 09:00 05/15/19 08:52 Cefdinir (Omnicef) 300 mg BID PO 05/15/19 21:00 05/15/19 20:35 Lactobacillus Rhamnosus (Culturelle) 1 cap BID PO 05/15/19 21:00 05/15/19 20:35 Ascorbic Acid (Vitamin C) 500 mg BID PO 05/15/19 21:00 05/15/19 20:35 I have reviewed the current psychotropics carefully including drug interactions. Risk benefit ratio favors no change other than as noted in my dictated progress note. Diagnosis: Problems: (1) Decubitus ulcer (2) Pain in right knee (3) Pain in left shoulder (4) Pain in joint of right ankle (5) Major depressive disorder, recurrent episode (6) Left displaced femoral neck fracture (7) Urinary tract infection (8) Failure to thrive (9) Weakness KURT CARTER MD May 15, 2019 21:29
[2019-05-15 22:55] VITALS: BP 125/77
--- NOTE | 2019-05-15 23:25 | PN ---
DATE: 05/14/2019 PSYCHIATRIC PROGRESS NOTE This late entry 05/14/2019 covers elements not covered in my initial note. SUBJECTIVE: I met with the patient in the evening of 05/14/2019. Per nursing report, the patient remains hard of hearing, somewhat withdrawn. The patient minimizes her mood symptoms, but again, review of her history and inability to have any motivation to take care of herself in her home have been prominent symptoms of depression. REVIEW OF SYSTEMS: Hard of hearing, some tiredness. No CV, , pulmonary, eye system symptoms on review. MENTAL STATUS EXAM: The patient is reasonably oriented. Speech has some latency, coherent. Abstraction fair, computation impaired, language function intact. She does have short-term memory deficits. Mood and affect somewhat dysphoric, though she minimizes this. No suicidal ideation. LABORATORY DATA: Reviewed. IMPRESSION: Unchanged from initial note. PLAN: No change from initial note. We will maintain her antidepressants. May need to adjust as clinically indicated. KURT CARTER MD DR: MATT/riley JOB#: [id number] / [id number]
--- NOTE | 2019-05-16 04:55 | PN ---
DATE: SUBJECTIVE: The patient is resting, slightly propped up in bed, in no apparent respiratory distress. She is not happy about decision that she should go to detention facility; however, she has failed twice now. Her also is an amputee and is unable to take care of herself. Last time, she was in a wheelchair for 10 days. At this time, she was in a wheelchair for 4 days. She came in here again, was found to be covered in her ____. Her called the EMS because the patient has been sitting in the couch for the last 2 days. She reportedly had been having visual hallucination. She denied any pain. She has not had any fever. She was evaluated in the Emergency Room, was admitted with urinary tract infection, weakness, decubitus ulcer and failure to thrive. Her lab work showed that she has leukocytosis and mild dehydration. Her urinalysis was consistent with urinary tract infection. She ultimately grew E. coli sensitive to all antibiotics. In fact, her urine culture has grown more than 100,000 colony forming units per mL of Escherichia coli sensitive to all cephalosporins. PHYSICAL EXAMINATION: GENERAL: When I examined her, she looked pale, not jaundiced, cyanosed or thyromegaly. No jugular venous distention. No limb edema. VITAL SIGNS: Her heart rate was 80, blood pressure was 138/84, temperature was 98, respiratory rate was 18 and oxygen saturation was 97%. HEAD, EYES, EARS, NOSE AND THROAT: Showed normocephalic, atraumatic. NECK: Supple. HEART: Showed normal first and second heart sounds. No gallop or murmur. CHEST: Clear to auscultation. No crepitation or rhonchi. ABDOMEN: Distended, soft, nontender. NEUROLOGIC: She is awake, alert. All cranial nerves are intact. She moves upper extremities without difficulty. She has fixed flexion contraction of both lower extremities. She is mostly bed bound, wheelchair bound. She has large right gluteal decubitus ulcer. LABORATORY DATA: Her lab work this morning showed a serum sodium 140, potassium 3.7, chloride 108, bicarbonate 23, anion gap of 9, BUN 17, creatinine 0.7, estimated GFR is 84 mL per minute. Her glucose was 89, calcium was 8.9. White cell count was 7700, hemoglobin 11, hematocrit 33, MCV 87, and platelet count 369,000. Urine culture has grown more than 100,000 colony forming units per mL of gram-negative rods identified as Escherichia coli, sensitive to all cephalosporins. PLAN: My plan is to discontinue IV ceftriaxone, switch her to cefdinir. Meanwhile, we will continue with pain management. Continue with wound care. We will have to discuss with her as he is unable to take care of her and she is unable to take care of herself and she needs to be in a detention facility. YESICA SCHMIDT MD DR: PATSY/riley JOB#: [id number] / [id number]
[2019-05-16] MEDS: busPIRone 10 MG TABLET. PO SCH (06:08)
[2019-05-16 06:11] VITALS: BP 127/79
[2019-05-16] MEDS: NYSTATIN TOPICAL POWDER 15GM BOTTLE. TP SCH (08:05)
[2019-05-16] MEDS: LACTOBACILLUS RHAMNOSUS GG 1 CAPSULE. PO SCH (08:05)
[2019-05-16] MEDS: CEFDINIR 300 MG CAPSULE PO SCH (08:05)
[2019-05-16] MEDS: ASCORBIC ACID 500 MG TABLET PO SCH (08:05)
[2019-05-16] MEDS: DICLOFENAC SODIUM 1% TOPICAL GEL 100GM TUBE. TP SCH (08:05)
[2019-05-16] MEDS: HYDROcodone/APAP 5/325MG 1 TAB TABLET PO PRN (08:05)
[2019-05-16] MEDS: MELOXICAM 15 MG TABLET. PO SCH (08:06)
[2019-05-16] MEDS: LISINOPRIL 20 MG TABLET PO SCH (08:06)
[2019-05-16] MEDS: FAMOTIDINE 20 MG TABLET PO SCH (08:06)
[2019-05-16] MEDS ORDERED: MULTIVITAMIN with MINERAL TABLET. PO SCH (09:00)
--- NOTE | 2019-05-16 12:32 | DISCH ---
DISCHARGE ORDERS CONDITION AT DISCHARGE: Stable Code Status: Full SNF STAY <30 DAYS: Yes POST DISCHARGE ORDERS: ACTIVITY ORDERS: No restrictions, Activity as tolerated WEIGHT BEARING STATUS: As tolerated BATHING ORDERS: Shower-keep dressing dry DIET AFTER DISCHARGE: Regular WOUND/INCISION CARE: Other, see below CHECKS AFTER DISCHARGE: CHECKS AFTER DISCHARGE: Check blood press - daily, Check your Temp as needed TREATMENT/EQUIPMENT ORDERS: ADAPTIVE EQUIPMENT NEEDED: None DISCHARGE MEDICATIONS: Home Meds Reported Medications Baclofen (BACLOFEN) 10 Mg Tablet, 1 TAB PO HS for SPASTICITY, #90 TAB 2 Refills 05/12/19 Nystatin (NYSTATIN) 15 Gm Powder, 1 CONSUELO TP BID for YEAST, #1 BOTTLE 05/12/19 Collagenase Clostridium Hist. (SANTYL) 30 Gm Oint...g., 30 GM TP DAILY for WOUND, MISC 05/12/19 Diclofenac Sodium (VOLTAREN) 100 Gm Gel..gram., 1 GM TP BID for PAIN, #100 GM 2 Refills 05/12/19 Famotidine (FAMOTIDINE) 20 Mg Tablet, 1 TAB PO DAILY for GERD, #60 TAB 5 Refills 05/12/19 Buspirone Hcl (BUSPIRONE HCL) 10 Mg Tablet, 1 TAB PO QID for dep, #60 TAB 1 Refill 05/12/19 Meloxicam (MELOXICAM) 15 Mg Tablet, 15 MG PO DAILY for OSTEOARTHRITIS 03/17/19 Lisinopril (LISINOPRIL) 20 Mg Tablet, 20 MG PO DAILY for HTN 03/16/19 CHARITO POLO MD May 16, 2019 12:32
--- NOTE | 2019-05-16 12:45 | PDOC3 ---
Discharge Summary Visit Information: Admitting Diagnosis: UTI with acute encephalopathy, and stage III decub ulcer Final Diagnosis Problems Medical Problems: (1) Decubitus ulcer Status: Chronic (2) Failure to thrive Status: Acute (3) Urinary tract infection Status: Acute (4) Weakness Status: Acute Brief Hospital Course: Allergies: Allergies Coded Allergies Type Severity Reaction Last Updated Verified No Known Drug Allergies 07/18/16 No Vital Signs: Vital Signs Date Time Temp Pulse Resp B/P (MAP) Pulse Ox O2 Delivery O2 Flow Rate FiO2 05/16/19 09:05 95 Room Air 05/16/19 08:06 66 127/79 05/16/19 06:11 98.5 16 Lab Results: Laboratory Tests Test 05/15/19 06:03 White Blood Count 7.7 x10^3/uL (4.0-11.0) Red Blood Count 3.83 x10^6/uL (3.50-5.40) Hemoglobin 10.7 g/dL (12.0-15.5) Hematocrit 33.4 % (36.0-47.0) Mean Corpuscular Volume 87 fL (79-100) Mean Corpuscular Hemoglobin 28 pg (25-35) Mean Corpuscular Hemoglobin Concent 32 g/dL (31-37) Red Cell Distribution Width 14.9 % (11.5-14.5) Platelet Count 369 x10^3/uL (140-400) Sodium Level 140 mmol/L (136-145) Potassium Level 3.7 mmol/L (3.5-5.1) Chloride Level 108 mmol/L (98-107) Carbon Dioxide Level 23 mmol/L (21-32) Anion Gap 9 (6-14) Blood Urea Nitrogen 17 mg/dL (7-20) Creatinine 0.7 mg/dL (0.6-1.0) Estimated GFR (Cockcroft-Gault) 83.5 Glucose Level 89 mg/dL (70-99) Calcium Level 8.9 mg/dL (8.5-10.1) PE: Gen.: Alert, pleasant, no apparent distress HEENT: Normocephalic atraumatic, PERRLA EOMI, no scleral icterus, oral mucosa pink and moist Neck: Supple, no lymphadenopathy, nontender Cardiovascular: Normal S1 and S2 no murmurs Pulmonary: Lungs are clear bilaterally with good air movement no respiratory distress Abdomen: Soft nontender non-distended, bowel sounds present no masses Extremities: No clubbing, cyanosis or edema Neuro: Alert and oriented 3, cranial nerves II through XII grossly intact, no lateralizing neuro deficits Skin: Warm, dry Brief Hospital Course: The patient is a 68-year-old female who is wheelchair bound likely after several hospitalizations and becoming weak. She has admissions for recurrent UTIs. She has history of severe osteoarthritis of both her knees and hip joints as were severe spinal stenosis, she has incontinence of urine. She is also being treated for a stage II versus stage III decub ulcer. She was having visual hallucinations when she was admitted to the hospital. She was having acute encephalopathy She was found to have a UTI. She was started on treatment with ceftriaxone. She was improving. Her urine culture grew E. coli which was sensitive to ceftriaxone. She was switched to cefdinir. The patient is agreeable to go to a senior care facility. She will be discharged to a senior care facility for continued treatment for UTI and the decub ulcer. She will also need physical therapy and Occupational Therapy for further strengthening. Greater than 30 minutes was spent on discharge and discharge summary Discharge Information: Home Meds: Reported Medications Baclofen (BACLOFEN) 10 Mg Tablet, 1 TAB PO HS for SPASTICITY, #90 TAB 2 Refills 05/12/19 Nystatin (NYSTATIN) 15 Gm Powder, 1 CONSUELO TP BID for YEAST, #1 BOTTLE 05/12/19 Collagenase Clostridium Hist. (SANTYL) 30 Gm Oint...g., 30 GM TP DAILY for WOUND, MISC 05/12/19 Diclofenac Sodium (VOLTAREN) 100 Gm Gel..gram., 1 GM TP BID for PAIN, #100 GM 2 Refills 05/12/19 Famotidine (FAMOTIDINE) 20 Mg Tablet, 1 TAB PO DAILY for GERD, #60 TAB 5 Refills 05/12/19 Buspirone Hcl (BUSPIRONE HCL) 10 Mg Tablet, 1 TAB PO QID for dep, #60 TAB 1 Refill 05/12/19 Meloxicam (MELOXICAM) 15 Mg Tablet, 15 MG PO DAILY for OSTEOARTHRITIS 03/17/19 Lisinopril (LISINOPRIL) 20 Mg Tablet, 20 MG PO DAILY for HTN 03/16/19 CHARITO POLO MD May 16, 2019 12:45
[2019-05-16 14:47] VITALS: BP 115/71
--- NOTE | 2019-05-17 03:21 | PN ---
DATE: 05/15/2019 PSYCHIATRIC PROGRESS NOTE This late entry 05/15/2019 covers the elements not covered in my initial note. SUBJECTIVE: I met with the patient in the evening. Per nursing report, the patient remains somewhat withdrawn. She will be going to long-term care and is fixated on her , so that she does not have to bother visiting her. I had a very lengthy discussion about this with her that it was ultimately her 's choice rather than her pushing him to do what she thinks would help him feel better. REVIEW OF SYSTEMS: Ambulation impaired. No CV, , pulmonary, eye, ENT system symptoms on review. She is hard of hearing. MENTAL STATUS EXAM: Oriented to herself and situation. Speech has some latency, coherent. Abstraction fair, computation impaired, language function intact. Mood and affect still somewhat depressed. LABORATORY DATA: Reviewed. No suicidal ideation. IMPRESSION: Unchanged from initial note. PLAN: No change from initial note. MAN Jeri CARTER MD DR: MATT/riley JOB#: [id number] / [id number]
== END 2019-05-16 17:01 | DRG 70 ==
LOC: ER 21:50 → 1 SOUTH 23:45
PROVIDERS: ADMIT Internal Medicine; ATTEND Internal Medicine
DX: G93.40 Encephalopathy, unspecified (principal); L89.313 Pressure ulcer of right buttock, stage 3; N39.0 Urinary tract infection, site not specified; F33.9 Major depressive disorder, recurrent, unspecified; R65.10 Systemic inflammatory response syndrome (SIRS) of non-infectious origin without acute organ dysfunction; G31.84 Mild cognitive impairment of uncertain or unknown etiology; E86.0 Dehydration; B96.20 Unspecified Escherichia coli [E. coli] as the cause of diseases classified elsewhere; M24.50 Contracture, unspecified joint; M81.0 Age-related osteoporosis without current pathological fracture; M17.0 Bilateral primary osteoarthritis of knee; M48.00 Spinal stenosis, site unspecified; Z99.3 Dependence on wheelchair; R62.7 Adult failure to thrive; Z68.26 Body mass index [BMI] 26.0-26.9, adult; H91.90 Unspecified hearing loss, unspecified ear; Z79.899 Other long term (current) drug therapy; Z87.440 Personal history of urinary (tract) infections
CPT/HCPCS: 36415; 51702; 70450; 71045; 73502; 80048; 80053; 81001; 83605; 83735; 83880; 85025; 85027; 87040; 87086; 87186; 90471; 90686; 96361; 96365; J0696; 97110; 97530; 99285-25; J7030

== ENCOUNTER 2019-08-07 10:45 | Inpatient (IN) | payer MEDICARE ==
[~2019-08-07] VITALS: Ht 154.9 cm; Wt 66.7 kg
[2019-08-07] MEDS: LACTOBACILLUS RHAMNOSUS GG 1 CAPSULE. PO SCH ×2 (09:00→21:11)
[~2019-08-07 10:45] MED LIST changes: +BACL10TA PO; +BUSP10TA PO; +COLL30OI TP; +DICL100G18 TP; +FAMO20TA5 PO; +NYST15PO9 TP
--- NOTE | 2019-08-07 10:58 | PHYS DOC ---
General Chief Complaint: MECHANICAL FALL Stated Complaint: Falls Time Seen by MD: 10:53 Source: patient Exam Limitations: no limitations History of Present Illness Initial Comments 68 years old female with multiple medical problem presented to the emergency department with the frequent falls she lives at home with her she stated that she is not able to ambulate very much at home she is able to stand up on her own she feels weak all over no chest pain or shortness breath no nausea no vomiting no diarrhea recently hospitalized for hypokalemia Allergies: Coded Allergies: No Known Drug Allergies (Unverified , 07/18/16) Past Medical History Surgical History: no surgical history All Other Systems: Reviewed and Negative Physical Exam General Appearance: WD/WN HEENT: PERRL/EOMI, other (ecchymosis around the left orbit) Respiratory: chest non-tender, lungs clear, normal breath sounds Cardiovascular: normal peripheral pulses, regular rate, rhythm, other (+3 edema lower extremities) Gastrointestinal: normal bowel sounds, non tender Extremities: normal range of motion, non-tender, normal inspection, pedal edema Neurologic/Psychiatric: jail manager II-XII nml as tested, no motor/sensory deficits, alert, normal mood/affect, oriented x 3, abnormal cerebellar tests Skin: normal color, pallor Lymphatic: no adenopathy MK EARL MD Aug 07, 2019 10:58
[2019-08-07 11:36] LABS: HEMATOCRIT 38.4 % (36.0-47.0); RED BLOOD COUNT 4.46 x10^6/uL (3.50-5.40); RED CELL DISTRIBUTION WIDTH 14.6 % (11.5-14.5); WHITE BLOOD COUNT 14.2 x10^3/uL (4.0-11.0)
--- NOTE | 2019-08-07 11:57 | RAD ---
RS Compliance Statement: One or more of the following individualized dose reduction techniques were utilized for this examination: 1. Automated exposure control 2. Adjustment of the mA and/or kV according to patient size 3. Use of iterative reconstruction technique CT head without contrast 08/07/2019 10:53 AM INDICATION: Trauma COMPARISON: CT head 05/11/2019 TECHNIQUE: Multiple axial CT images of the head were obtained from skull base through the vertex without intravenous contrast. FINDINGS: Head: Ventricles, sulci and basal cisterns are prominent compatible with moderate generalized cerebral volume loss. Low-attenuation in the periventricular white matter is suggestive of chronic small vessel ischemic changes. High attenuation along the falx appears stable and may represent dural based calcifications. Remote lacunar infarct is identified in the right subinsular. There is no hydrocephalus. Quiroz-white matter differentiation is normal. There is no acute intracranial hemorrhage. There is no mass, mass effect or midline shift. Posterior fossa is normal in appearance. Visualized portions of the orbits are normal. Paranasal sinuses are well aerated. Mastoid air cells are well aerated. Left supraorbital soft tissue hematoma is identified. No underlying calvarial defect is identified. There is a pilar cyst along the left parietal scalp measuring 8 mm, stable. IMPRESSION: No acute intracranial hemorrhage. Moderate general cerebral volume loss. Low-attenuation in the periventricular white matter is suggestive of chronic small vessel ischemic changes. Left supraorbital hematoma without underlying calvarial defect. Remote lacunar infarct in the right subinsular. Electronically signed by: Heather Alvarez MD (08/07/2019 11:53 AM) [id number]
--- NOTE | 2019-08-07 12:08 | RAD ---
PELVIS 08/07/2019 10:53 AM INDICATION: Trauma COMPARISON: Pelvis radiograph 05/11/2019 TECHNIQUE: Single AP view the pelvis is provided. FINDINGS/ IMPRESSION: 1. Mild joint space narrowing involving the right femoral acetabular joint. No acute fracture is identified. 2. Mild joint space narrowing involving the left femoral acetabular joint with marginal osteophytosis. No acute fracture of the proximal femur. Remodeling of the left inferior pubic ramus and superior pubic ramus may reflect remote traumatic sequela. 3. Moderate amount stool is noted within the rectum. 4. Pelvic ring appears intact. Electronically signed by: Heather Alvarez MD (08/07/2019 12:05 PM) [id number]
[2019-08-07 12:14] LABS: CALCIUM 8.9 mg/dL (8.5-10.1); CREATININE 0.7 mg/dL (0.6-1.0); GFR 83.5; POTASSIUM 3.4 mmol/L (3.5-5.1)
[2019-08-07 12:20] LABS: ALBUMIN 2.9 g/dL (3.4-5.0); ALBUMIN/GLOBULIN RATIO 0.7 (1.0-1.7); TOTAL BILIRUBIN 0.4 mg/dL (0.2-1.0); TOTAL PROTEIN 7.3 g/dL (6.4-8.2)
[2019-08-07] MEDS ORDERED: POTASSIUM CHLORIDE 20 MEQ TABLET.ER. PO ONE ×2 (12:45→17:15)
--- NOTE | 2019-08-07 12:47 | RAD ---
EXAM: Chest, single view. HISTORY: Fever. COMPARISON: 03/17/2019 FINDINGS: A frontal view of the chest obtained. There is no infiltrate, pleural effusion or pneumothorax. The heart is normal in size. There are suspected chronic interstitial changes. There is chronic deformity of the left proximal humerus. There is incidental advanced degenerative change involving the left glenohumeral joint. IMPRESSION: No acute pulmonary finding. Electronically signed by: Corina Singh MD (08/07/2019 12:44 PM) [place] [id number]
[2019-08-07 12:55] LABS: BACTERIA,URINE 0 /HPF (0-FEW); BILIRUBIN,URINE NEG (NEG); CLARITY,URINE HAZY; COLOR,URINE YELLOW; GLUCOSE,URINE NEG (NEG); NITRITE,URINE NEG (NEG); SQUAMOUS EPITHELIAL CELL,UR MOD /LPF; UROBILINOGEN,URINE 0.2 mg/dL (0.2 mg/dL)
[2019-08-07] MEDS ORDERED: POTA10TA PO (13:09)
[2019-08-07] MEDS ORDERED: NITR100C62 PO (13:09)
[2019-08-07] MEDS ORDERED: IV NORMAL SALINE 1,000ML 1,000 ML IV ONE (13:15)
[2019-08-07] MEDS ORDERED: VANCOMYCIN 1 GM in IV NORMAL SALINE 250ML 250 ML IV ONE (14:00)
[2019-08-07] MEDS ORDERED: HYDROcodone/APAP 5/325MG 1 TAB TABLET PO ONE (14:15)
[2019-08-07] MEDS ORDERED: VANCOMYCIN 1.75 GM in IV NORMAL SALINE 500ML 500 ML IV ONE (14:30)
[2019-08-07] MEDS ORDERED: MIRT15TA3 PO (15:41)
[2019-08-07] MEDS ORDERED: DONE10TA7 PO (15:41)
[2019-08-07 16:43] VITALS: BP 171/85
[2019-08-07] MEDS ORDERED: PIP/TAZO PER PHARMACY MC PRN (16:45)
--- NOTE | 2019-08-07 17:38 | HP ---
ADMIT DATE: 08/07/2019 HISTORY OF PRESENT ILLNESS: The patient is a 68-year-old female patient, who apparently left [facility] and has been at home with her for the last 2 weeks. She apparently has had multiple falls. She is unable to stand or walk. She is mostly bed bound, wheelchair bound and apparently when she arrived, she was also incontinent of urine and has had pressure ulcers in her right buttock with surrounding cellulitis. She was extensively investigated. Her lab work showed that her white cell count was 14,000, hemoglobin 12, hematocrit 38. Her chemistry showed that she has hypokalemia and a decision was made to admit her for replenish her potassium, treat her wounds and treat the surrounding cellulitis. This is the third time the patient presented with the same problem. Unfortunately, the patient does not have insight in her extensive medical problems and her disability, and twice now she is living skilled facilities against medical advice. Unfortunately, her himself is wheelchair bound and is incapable of helping her. PAST MEDICAL HISTORY: Significant for marked weakness, debility, and inability to walk. She has had before right gluteal decubitus ulcer that has healed completely and unfortunately she is coming back again with the same. In fact, actually larger gluteal decubitus ulcer. She is incontinent of urine. She has severe osteoarthritis of both knees and hip joint. Severe spinal stenosis. PAST SURGICAL HISTORY: Unremarkable. ALLERGIES: She has no known drug allergies. FAMILY HISTORY: Noncontributory. SOCIAL HISTORY: She is and lives with , both are wheelchair bound. She does not smoke, drink alcohol or use recreational drugs. 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 They have one daughter who does not really keep in touch. REVIEW OF SYSTEMS: As per history of present illness. MEDICATIONS: She is currently on following medications: She is on Aricept 10 mg at bedtime, baclofen 10 mg at bedtime, lisinopril 20 mg once a day, diclofenac sodium 100 grams gel applied 1 gram topically twice a day, meloxicam 15 mg daily, mirtazapine ___ mg at bedtime, buspirone 10 mg 4 times a day, potassium chloride 20 mEq daily, famotidine 20 mg once a day, nystatin powder applied topically twice a day. She is on Santyl ointment applied topically daily for her wounds. PHYSICAL EXAMINATION: GENERAL: On arrival to the Emergency Room today, the patient looked actually well. There was no pallor, jaundice, cyanosis or thyromegaly. No jugular venous distention. No lower limb edema. VITAL SIGNS: Her heart rate was 96, blood pressure was 143/79, temperature was 97.9, respiratory rate 20, and oxygen saturation 100% on room air. HEAD, EYES, EARS, NOSE AND THROAT: Showed normocephalic, atraumatic. NECK: Supple. HEAD, EARS, NOSE AND THROAT: Showed she has a left supraorbital subcutaneous hematoma. NECK: Supple. HEART: Showed normal first and second heart sounds. No gallop, rub or murmur. CHEST: Showed central trachea, equal bilateral expansion, air entry, vesicular breath sounds. No crepitation or rhonchi. ABDOMEN: Distended, soft, nontender. No guarding or rigidity. No organomegaly. All hernial orifice intact. Bowel sounds normal. NEUROLOGIC: She is awake, alert. All her cranial nerves are intact. She moves upper extremities to much good extent than lower extremities. She has fixed flexion contraction of both lower extremities. She has right side gluteal decubitus ulcer stage 2 with surrounding cellulitis. She has also intertriginous candidiasis around her perianal and vulvovaginal as well as abdominal folds under her breast. LABORATORY DATA: While in the Emergency Room, she has had lab work done, which showed a white cell count 14,200, hemoglobin 12, hematocrit 38, MCV 86 and platelet count of 398,000. Her chemistry showed a serum sodium 141, potassium 3.4, chloride 107, bicarbonate 23, anion gap of 11, BUN 13, creatinine 0.7, estimated GFR was 83 mL per minute. Her glucose was 99, calcium was 8.9. Total bilirubin, AST, ALT, alkaline phosphatase were normal. Total protein was 7.3, albumin was 2.9. Urinalysis showed the urine was yellow, hazy with a pH of 6, specific gravity of 1.025. The urine was negative for protein, glucose, ketones. There was trace of blood, negative for nitrite. There was trace of leukocyte esterase, 3-5 rbc's, 5-10 wbc's, and no bacteria. Her pelvic x-ray showed that the patient has mild joint space narrowing involving the right femoral acetabular joint. No acute fracture identified. She has also mild joint space narrowing involving the left femoral acetabular joint with marginal osteophytosis. No acute fracture of the proximal femur, remodeling of the left inferior pubic ramus, and severe pubic ramus, may reflect remote traumatic sequela. She has moderate amount of stool noted within the rectum and apparently the pelvic ring appears intact. The CT scan of the head showed that the patient has no acute intracranial hemorrhage, has moderate general cerebral volume loss, low attenuation in the periventricular white matter is suggestive of chronic small vessel ischemic changes. She has left supraorbital hematoma without underlying calvarial defect. She has remote lacunar infarct in the right subinsular area. Her chest x-ray showed that there is no infiltrate, pleural effusion, or pneumothorax. The heart is normal in size. There are suspected chronic interstitial changes. There is chronic deformity of the left proximal humerus. There is incidental advanced degenerative changes involving the left glenohumeral joint. ASSESSMENT AND PLAN: In summary, this is a 68-year-old female patient who yet again coming for the third time with right gluteal decubitus ulcer with surrounding cellulitis. She has urinary incontinence and intertriginous candidiasis involving skin fold areas under her breast, perianal, and perineal area. PLAN: My plan is to replenish her potassium and start her on IV vancomycin as well as Zosyn and monitor her labs and response closely. YESICA SCHMIDT MD DR: PATSY/riley JOB#: [id number] / [id number]
[2019-08-07] MEDS: busPIRone 10 MG TABLET. PO SCH ×2 (17:53→21:11)
[2019-08-07 20:18] VITALS: BP 145/62
[2019-08-07] MEDS ORDERED: NYSTATIN TOPICAL POWDER 15GM BOTTLE. TP SCH ×2 (21:00)
[2019-08-07] MEDS: VANCOMYCIN PER PHARMACY MC PRN (21:01)
[2019-08-07] MEDS: MIRTAZAPINE 15 MG TABLET PO SCH (21:11)
[2019-08-07] MEDS: DONEPEZIL HCL 10 MG TABLET PO SCH (21:11)
[2019-08-07] MEDS: NYSTATIN TOPICAL POWDER 15GM BOTTLE. TP SCH (21:11)
[2019-08-07] MEDS: BACLOFEN 10 MG TABLET PO SCH (21:11)
[2019-08-07] MEDS: DICLOFENAC SODIUM 1% TOPICAL GEL 100GM TUBE. TP SCH (21:11)
[2019-08-07 23:16] VITALS: BP 145/103
[2019-08-07] MEDS: PIPERACILLIN/TAZOBACTAM 4.5 GM in IV NORMAL SALINE 50ML 50 ML IV SCH (23:17)
[2019-08-08] MEDS: PIPERACILLIN/TAZOBACTAM 4.5 GM in IV NORMAL SALINE 50ML 50 ML IV SCH ×3 (01:01→16:33)
[2019-08-08] MEDS: HYDROcodone/APAP 5/325MG 1 TAB TABLET PO PRN ×4 (02:46→19:10)
--- NOTE | 2019-08-08 06:07 | EKG ---
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
[2019-08-08 06:59] LABS: HEMATOCRIT 30.9 % (36.0-47.0); HEMOGLOBIN 9.7 g/dL (12.0-15.5); RED BLOOD COUNT 3.62 x10^6/uL (3.50-5.40); RED CELL DISTRIBUTION WIDTH 14.7 % (11.5-14.5)
[2019-08-08 07:20] LABS: C REACTIVE PROTEIN 45.8 mg/L (0-3.3); CALCIUM 8.4 mg/dL (8.5-10.1); CREATININE 0.8 mg/dL (0.6-1.0); GFR 71.5; MAGNESIUM 1.9 mg/dL (1.8-2.4); POTASSIUM 3.8 mmol/L (3.5-5.1)
[2019-08-08] MEDS: FAMOTIDINE 20 MG TABLET PO SCH (07:51)
[2019-08-08] MEDS: NYSTATIN TOPICAL POWDER 15GM BOTTLE. TP SCH ×2 (07:51→20:25)
[2019-08-08] MEDS: DICLOFENAC SODIUM 1% TOPICAL GEL 100GM TUBE. TP SCH ×2 (07:51→20:25)
[2019-08-08] MEDS: MELOXICAM 15 MG TABLET. PO SCH (07:52)
[2019-08-08] MEDS: LACTOBACILLUS RHAMNOSUS GG 1 CAPSULE. PO SCH ×2 (07:52→20:24)
[2019-08-08] MEDS: LISINOPRIL 20 MG TABLET PO SCH (07:52)
[2019-08-08] MEDS: POTASSIUM CHLORIDE 10 MEQ TABLET.ER. PO SCH (07:52)
[2019-08-08] MEDS: busPIRone 10 MG TABLET. PO SCH ×4 (07:52→20:24)
[2019-08-08 07:53] VITALS: BP 148/67
[2019-08-08] MEDS ORDERED: COLLAGENASE CLOSTRIDIUM HIST TP SCH (09:00)
[2019-08-08 10:47] VITALS: BP 108/65
[2019-08-08] MEDS ORDERED: VANCOMYCIN 1 GM in IV NORMAL SALINE 250ML 250 ML IV SCH (14:00)
[2019-08-08 14:20] VITALS: BP 130/73
[2019-08-08 19:15] VITALS: BP 112/65
[2019-08-08] MEDS: DONEPEZIL HCL 10 MG TABLET PO SCH (20:24)
[2019-08-08] MEDS: BACLOFEN 10 MG TABLET PO SCH (20:24)
[2019-08-08] MEDS: MIRTAZAPINE 15 MG TABLET PO SCH (20:24)
--- NOTE | 2019-08-08 20:45 | PN ---
DATE: 08/07/2019 SUBJECTIVE: The patient is resting, slightly propped up in bed, in no apparent distress. She continued to complain of pain in her legs. Denied any other complaints, in particular denied any chills, rigors or fever. PHYSICAL EXAMINATION: GENERAL: When I examined her, she looked well and was clearly in no apparent respiratory distress. She was pale, but no jaundice, cyanosis or thyromegaly. No jugular venous distention. No limb edema. VITAL SIGNS: Her heart rate was 62, blood pressure was 108/65, temperature was 97.8, respiratory rate was 18 and oxygen saturation was 98% on room air. HEAD, EYES, EARS, NOSE AND THROAT: Showed normocephalic. She has a subcutaneous hematoma on the left forehead in the left supraorbital area. NECK: Supple. HEART: Showed normal first and second heart sounds. No gallop, rub or murmur. CHEST: Clear to auscultation. No crepitation or rhonchi. ABDOMEN: Distended, soft, nontender. NEUROLOGIC: She was awake, alert, responding appropriately. All her cranial nerves intact. She moves upper extremities without difficulty. She has fixed flexion contracture of both lower extremities. She has an indwelling Alex catheter. She has stage III right gluteal decubitus ulcer with surrounding cellulitis. Her intake and output were incompletely recorded. LABORATORY DATA: Her lab work this morning showed a white cell count of 9000, hemoglobin 10, hematocrit 30, MCV 85 and platelet count of 374,000. Her chemistry showed a serum sodium 144, potassium 3.8, chloride 111, bicarbonate 25, anion gap of 8, BUN 11, creatinine 0.8, estimated GFR was 71 mL per minute. Her glucose was 76, calcium was 8.4, magnesium was 1.8. C-reactive protein was 45.8 mg/dL and sedimentation rate was 40 mm per hour. ASSESSMENT: 1. Right gluteal decubitus ulcer with surrounding cellulitis. 2. Urinary incontinence. 3. Intertriginous candidiasis involving skin fold areas under the breast, perianal and vulvovaginal area and both groins. 4. She has severe osteoporosis, osteoarthritis, lumbar spinal stenosis, fixed flexion contraction of both lower extremities. PLAN: To continue with pain management. Continue with IV antibiotic in the form of vancomycin as well as piperacillin. Continue with Aricept for dementia, mirtazapine for anorexia. YESICA SCHMIDT MD DR: PATSY/riley JOB#: [id number] / [id number]
[2019-08-08] MEDS: VANCOMYCIN 1 GM in IV NORMAL SALINE 250ML 250 ML IV SCH (22:32)
[2019-08-08 22:42] VITALS: BP 120/70
[2019-08-09] MEDS: PIPERACILLIN/TAZOBACTAM 4.5 GM in IV NORMAL SALINE 50ML 50 ML IV SCH ×3 (01:32→17:19)
[2019-08-09 05:35] VITALS: BP 159/80
[2019-08-09 06:42] LABS: HEMATOCRIT 32.3 % (36.0-47.0); HEMOGLOBIN 10.3 g/dL (12.0-15.5); RED BLOOD COUNT 3.79 x10^6/uL (3.50-5.40); RED CELL DISTRIBUTION WIDTH 14.6 % (11.5-14.5); WHITE BLOOD COUNT 9.3 x10^3/uL (4.0-11.0)
[2019-08-09 07:03] LABS: CALCIUM 8.6 mg/dL (8.5-10.1); CREATININE 0.8 mg/dL (0.6-1.0); GFR 71.5; POTASSIUM 3.8 mmol/L (3.5-5.1)
[2019-08-09] MEDS: LACTOBACILLUS RHAMNOSUS GG 1 CAPSULE. PO SCH ×2 (08:19→20:23)
[2019-08-09] MEDS: FAMOTIDINE 20 MG TABLET PO SCH (08:19)
[2019-08-09] MEDS: busPIRone 10 MG TABLET. PO SCH ×4 (08:19→20:24)
[2019-08-09] MEDS: MELOXICAM 15 MG TABLET. PO SCH (08:20)
[2019-08-09] MEDS: NYSTATIN TOPICAL POWDER 15GM BOTTLE. TP SCH ×2 (08:20→20:24)
[2019-08-09] MEDS: LISINOPRIL 20 MG TABLET PO SCH (08:20)
[2019-08-09] MEDS: DICLOFENAC SODIUM 1% TOPICAL GEL 100GM TUBE. TP SCH ×2 (08:21→20:24)
[2019-08-09] MEDS: POTASSIUM CHLORIDE 10 MEQ TABLET.ER. PO SCH (08:26)
[2019-08-09] MEDS: HYDROcodone/APAP 5/325MG 1 TAB TABLET PO PRN ×2 (10:46→20:24)
--- NOTE | 2019-08-09 11:32 | PN ---
DATE: 08/07/2019 SUBJECTIVE: The patient is resting, slightly propped up in bed, in no apparent distress. She is awake, alert, stated that she has bad dreams last night, but denied any chest pain, shortness of breath, chills, rigors or fever. OBJECTIVE: GENERAL: On examining her, she looked well and was clearly in no apparent respiratory distress, slightly pale. No jaundice, cyanosis or thyromegaly. No jugular venous distention. No limb edema. VITAL SIGNS: Her heart rate was 75, blood pressure 159/80, temperature was 98.1, respiratory rate was 18 and oxygen saturation was 94%. The rest of clinical examination is stable. Her intertriginous candidiasis has mostly resolved. She obviously has right gluteal decubitus ulcer with surrounding cellulitis covered with dressing. Her intake was 1300, output was 350. LABORATORY DATA: As of this morning showed a white cell count of 9300, hemoglobin 10, hematocrit 32, MCV 85, and platelet count 360,000. Her chemistry showed a serum sodium 144, potassium 3.8, chloride 109, bicarbonate 26, anion gap of 9, BUN 11, creatinine 0.8, estimated GFR was 71 mL per minute. Her glucose was 86, calcium was 8.6. ASSESSMENT: 1. Right gluteal decubitus ulcer with surrounding cellulitis. 2. Urinary incontinence. 3. Intertriginous candidiasis involving the skin folds under the breast, perianal, vaginal area and both groins has largely subsided. 4. The patient has severe osteoporosis, osteoarthritis, lumbar spinal stenosis, fixed flexion contracture of both lower extremities. She is mostly bed bound, wheelchair bound. PLAN: To continue with pain management. Continue IV antibiotic. Continue with all other medications. YESICA SCHMIDT MD DR: PATSY/riley JOB#: [id number] / [id number]
[2019-08-09 19:47] VITALS: BP 160/90
[2019-08-09] MEDS: BACLOFEN 10 MG TABLET PO SCH (20:24)
[2019-08-09] MEDS: DONEPEZIL HCL 10 MG TABLET PO SCH (20:24)
[2019-08-09] MEDS: MIRTAZAPINE 15 MG TABLET PO SCH (20:24)
[2019-08-09 22:25] LABS: VANC TR 8.4 mcg/mL (10.0-20.0)
[2019-08-09 23:15] VITALS: BP 162/95
[2019-08-10] MEDS: VANCOMYCIN 1 GM in IV NORMAL SALINE 250ML 250 ML IV SCH ×3 (00:16→22:09)
[2019-08-10] MEDS: PIPERACILLIN/TAZOBACTAM 4.5 GM in IV NORMAL SALINE 50ML 50 ML IV SCH ×3 (01:15→20:37)
[2019-08-10 06:04] VITALS: BP 167/110
[2019-08-10] MEDS ORDERED: VANCOMYCIN 1 GM in IV NORMAL SALINE 250ML 250 ML IV SCH (07:15)
[2019-08-10] MEDS: VANCOMYCIN PER PHARMACY MC PRN (07:22)
[2019-08-10] MEDS: FAMOTIDINE 20 MG TABLET PO SCH (07:27)
[2019-08-10] MEDS: MELOXICAM 15 MG TABLET. PO SCH (07:27)
[2019-08-10] MEDS: POTASSIUM CHLORIDE 10 MEQ TABLET.ER. PO SCH (07:27)
[2019-08-10] MEDS: HYDROcodone/APAP 5/325MG 1 TAB TABLET PO PRN ×3 (07:27→20:38)
[2019-08-10] MEDS: LACTOBACILLUS RHAMNOSUS GG 1 CAPSULE. PO SCH ×2 (07:27→20:38)
[2019-08-10] MEDS: NYSTATIN TOPICAL POWDER 15GM BOTTLE. TP SCH ×2 (07:28→21:00)
[2019-08-10] MEDS: LISINOPRIL 20 MG TABLET PO SCH (07:28)
[2019-08-10] MEDS: busPIRone 10 MG TABLET. PO SCH ×4 (07:28→21:00)
[2019-08-10] MEDS: DICLOFENAC SODIUM 1% TOPICAL GEL 100GM TUBE. TP SCH ×2 (07:28→21:00)
[2019-08-10 11:37] VITALS: BP 118/81
--- NOTE | 2019-08-10 14:21 | RAD ---
2 views the right femur without comparison for fall, pain in the right thigh above the knee joint. FINDINGS: There is no fracture, dislocation, or acute osseous abnormality identified. Degenerative changes are seen throughout the knee joint, along with osteopenia. Extensive vascular calcifications are present as well. IMPRESSION: 1. No definite fracture or acute osseous abnormality. 2. Chronic changes including osteopenia, osteoarthritis, and atherosclerosis. Electronically signed by: Torin Leyva MD (08/10/2019 2:18 PM) [id number]
--- NOTE | 2019-08-10 14:24 | RAD ---
2 views of the right knee without comparison for pain following a fall. FINDINGS: There is no definite fracture or acute osseous abnormality identified. There is osteoarthritis, with an atypical preponderance involving the lateral joint compartment, which produces mild valgus angulation of the knee. The medial joint compartment and patellofemoral joint compartments are mildly involved but appear much better preserved. This distribution may represent sequelae of prior distant injury. There is deformity of the distal fibula suggesting an old healed injury. No bony erosions to suggest inflammatory process, though there is suggestion of soft tissue swelling posteriorly about the knee which may represent a small joint effusion. Atherosclerosis is seen in multiple distributions. IMPRESSION: 1. No fracture or acute osseous abnormality. 2. Advanced arthritis primarily involving the lateral joint compartment, which is atypical for osteoarthritis, but may represent sequelae of distant injury. An inflammatory arthritis is less likely. 3. Suggestion of small joint effusion. If there is clinical concern for internal derangement of soft tissues, consider further evaluation with MRI. Electronically signed by: Torin Leyva MD (08/10/2019 2:21 PM) [facility]
[2019-08-10 15:59] VITALS: BP 151/73
[2019-08-10 19:07] VITALS: BP 165/85
[2019-08-10] MEDS: BACLOFEN 10 MG TABLET PO SCH (20:38)
[2019-08-10] MEDS: DONEPEZIL HCL 10 MG TABLET PO SCH (20:38)
[2019-08-10] MEDS: MIRTAZAPINE 15 MG TABLET PO SCH (20:38)
--- NOTE | 2019-08-10 22:26 | PN ---
DATE: PROGRESS NOTE SUBJECTIVE: The patient is sitting in her chair, complaining of pain in her right thigh. She apparently fell on that side. When she was admitted, she did have x-ray of her pelvis. At that time, she has bilateral hip osteoarthritis, but however, the pelvic ring appears intact. PHYSICAL EXAMINATION: GENERAL: When I examined her this afternoon, she looked well and was clearly in no apparent respiratory distress. No pallor, jaundice, cyanosis or thyromegaly. No jugular venous distension. No lower limb edema. VITAL SIGNS: Her heart rate was 86, blood pressure was 118/81, temperature was 98.6, respiratory rate was 20, and oxygen saturation was 93% on room air. HEAD, EYES, EARS, NOSE AND THROAT: Showed normocephalic, atraumatic. NECK: Supple. HEART: Showed normal first and second heart sounds with no gallop, rub or murmur. CHEST: Clear to auscultation. No crepitation or rhonchi. ABDOMEN: Distended, soft, nontender. NEUROLOGIC: She is awake and alert. She has fixed flexion contraction of both lower extremities. She has right gluteal decubitus ulcer. She has an indwelling Alex catheter. Her intake over the last 24 hours was 800, output was 1350. LABORATORY DATA: Her most recent lab work showed a serum sodium 144, potassium 3.8, chloride 109, bicarbonate 26, anion gap of 9, BUN 11, creatinine 0.8, estimated GFR was 71 mL per minute. Her glucose was 86, calcium was 8.6. Her white cell count was 9300, hemoglobin 10, hematocrit 32, MCV 85, and platelet count 360,000. Her sed rate was 40 and C-reactive protein was 45 mg/dL. ASSESSMENT: 1. Right gluteal decubitus ulcer with surrounding cellulitis. 2. Urinary incontinence. 3. Intertriginous candidiasis involving skin folds under the breast, vulvovaginal area, and both groins have largely subsided. 4. The patient has severe osteoporosis, osteoarthritis, and lumbar spinal stenosis. 5. Fixed flexion contraction of both lower extremities. 6. She has been complaining of pain in her right thigh. PLAN: Today, my plan is to arrange for x-ray of her right femur, right knee joint and if the x-ray is unrevealing, we will arrange for her to have a total body bone scan. YESICA SCHMIDT MD DR: PATYS/riley JOB#: [id number] / [id number]
[2019-08-10 22:44] VITALS: BP 138/78
[2019-08-11] MEDS: PIPERACILLIN/TAZOBACTAM 4.5 GM in IV NORMAL SALINE 50ML 50 ML IV SCH ×3 (01:37→16:16)
[2019-08-11 05:33] VITALS: BP 179/100
[2019-08-11 07:54] LABS: CALCIUM 8.3 mg/dL (8.5-10.1); CREATININE 0.8 mg/dL (0.6-1.0); GFR 71.5; POTASSIUM 3.6 mmol/L (3.5-5.1)
[2019-08-11] MEDS: busPIRone 10 MG TABLET. PO SCH ×4 (09:00→20:19)
[2019-08-11] MEDS: LACTOBACILLUS RHAMNOSUS GG 1 CAPSULE. PO SCH ×2 (09:23→20:19)
[2019-08-11] MEDS: NYSTATIN TOPICAL POWDER 15GM BOTTLE. TP SCH ×2 (09:23→20:19)
[2019-08-11] MEDS: DICLOFENAC SODIUM 1% TOPICAL GEL 100GM TUBE. TP SCH ×2 (09:23→20:18)
[2019-08-11] MEDS: MELOXICAM 15 MG TABLET. PO SCH (09:23)
[2019-08-11] MEDS: FAMOTIDINE 20 MG TABLET PO SCH (09:23)
[2019-08-11] MEDS: LISINOPRIL 20 MG TABLET PO SCH (09:23)
[2019-08-11] MEDS: POTASSIUM CHLORIDE 10 MEQ TABLET.ER. PO SCH (09:23)
[2019-08-11] MEDS: VANCOMYCIN 1 GM in IV NORMAL SALINE 250ML 250 ML IV SCH ×2 (11:00→22:36)
[2019-08-11 11:34] LABS: VANC TR 15.5 mcg/mL (10.0-20.0)
[2019-08-11 11:36] VITALS: BP 160/94
[2019-08-11] MEDS: HYDROcodone/APAP 5/325MG 1 TAB TABLET PO PRN ×2 (14:35→20:20)
[2019-08-11 14:50] VITALS: BP 177/97
[2019-08-11] MEDS: amLODIPine BESYLATE 5 MG TABLET PO SCH (15:00)
[2019-08-11 19:45] VITALS: BP 119/67
[2019-08-11] MEDS: MIRTAZAPINE 15 MG TABLET PO SCH (20:19)
[2019-08-11] MEDS: BACLOFEN 10 MG TABLET PO SCH (20:20)
[2019-08-11] MEDS: DONEPEZIL HCL 10 MG TABLET PO SCH (20:20)
--- NOTE | 2019-08-11 20:39 | PN ---
DATE: SUBJECTIVE: The patient is resting, slightly propped up in bed, no apparent distress, awake, alert, continued to complain of pain in her right femur; however, the x-ray showed no definite acute fracture or acute osseous abnormality, has chronic changes including osteopenia, osteoarthritis and arthrosclerosis. Her right knee joint showed no fracture or acute osseous abnormality; advanced arthritis, primarily involving the lateral joint compartment, which is atypical for osteoarthritis, but may represent sequelae of distant injury and inflammatory arthritis. There is a suggestion of a small joint effusion. PHYSICAL EXAMINATION: GENERAL: When I examined her this afternoon, she looked well and was clearly in no apparent respiratory distress, pale, but no jaundice, cyanosis, or thyromegaly. No jugular venous distension. No limb edema. VITAL SIGNS: Her heart rate was 83, blood pressure was 160/94, temperature was 98.1, respiratory rate was 18 and oxygen saturation was 95%. The rest of clinical exam is stable, has not really changed. Her intake over the last 24 hours was 900, output was 1800. LABORATORY DATA: Her chemistry this morning showed a serum sodium 141, potassium 3.6, chloride 106, bicarbonate 27, anion gap of 8, BUN 11, creatinine 0.8, estimated GFR was 71 mL per minute. Her glucose was 79, calcium was 8.3. ASSESSMENT: 1. Right gluteal decubitus ulcer with surrounding cellulitis. 2. Urinary incontinence. 3. Intertriginous candidiasis involving skin folds under the breast, vulvovaginal area, both groins, have largely subsided. 4. The patient has severe osteoporosis, osteoarthritis and lumbar spinal stenosis. 5. She has fixed flexion contraction of both lower extremities. X-ray of her right femur, right knee joint were unremarkable. PLAN: To continue with pain medication. Continue IV antibiotic. Continue with wound care. We are waiting for the insurance authorization to transfer her to [facility]. YESICA SCHMIDT MD DR: PATSY/riley JOB#: [id number] / [id number]
[2019-08-11 22:58] VITALS: BP 110/64
[2019-08-12] MEDS: PIPERACILLIN/TAZOBACTAM 4.5 GM in IV NORMAL SALINE 50ML 50 ML IV SCH ×3 (01:13→18:05)
[2019-08-12] MEDS: HYDROcodone/APAP 5/325MG 1 TAB TABLET PO PRN ×3 (07:37→19:31)
[2019-08-12] MEDS: MELOXICAM 15 MG TABLET. PO SCH (09:00)
[2019-08-12] MEDS: POTASSIUM CHLORIDE 10 MEQ TABLET.ER. PO SCH (09:00)
[2019-08-12] MEDS: amLODIPine BESYLATE 5 MG TABLET PO SCH (09:01)
[2019-08-12] MEDS: LACTOBACILLUS RHAMNOSUS GG 1 CAPSULE. PO SCH ×2 (09:07→21:15)
[2019-08-12] MEDS: LISINOPRIL 20 MG TABLET PO SCH (09:07)
[2019-08-12] MEDS: FAMOTIDINE 20 MG TABLET PO SCH (09:07)
[2019-08-12] MEDS: busPIRone 10 MG TABLET. PO SCH ×4 (09:08→21:15)
[2019-08-12] MEDS: NYSTATIN TOPICAL POWDER 15GM BOTTLE. TP SCH ×2 (09:27→21:17)
[2019-08-12] MEDS: DICLOFENAC SODIUM 1% TOPICAL GEL 100GM TUBE. TP SCH ×2 (09:27→21:17)
[2019-08-12 09:38] VITALS: BP 134/73
[2019-08-12] MEDS: VANCOMYCIN 1 GM in IV NORMAL SALINE 250ML 250 ML IV SCH ×2 (11:02→22:39)
[2019-08-12 15:08] VITALS: BP 120/70
[2019-08-12 19:00] VITALS: BP 98/64
[2019-08-12] MEDS: MIRTAZAPINE 15 MG TABLET PO SCH (21:15)
[2019-08-12] MEDS: DONEPEZIL HCL 10 MG TABLET PO SCH (21:15)
[2019-08-12] MEDS: BACLOFEN 10 MG TABLET PO SCH (21:19)
--- NOTE | 2019-08-12 21:27 | PN ---
DATE: 08/12/2019 SUBJECTIVE: The patient is sitting comfortably in her recliner, in no apparent respiratory distress. She is awake, alert. On questioning her, denied any complaint. OBJECTIVE: GENERAL: When I examined her, she looked pale, but no jaundice, cyanosis or thyromegaly. No jugular venous distension. No lower limb edema. VITAL SIGNS: Her heart rate was 84, blood pressure was 134/73, temperature was 98.3, respiratory rate was 16, and oxygen saturation was 94%. The rest of clinical exam is stable. Her intake over the last 24 hours was 960 and output was 2150. LABORATORY DATA: As of yesterday, her serum sodium 141, potassium 3.6, chloride 106, bicarbonate 27, anion gap of 8, BUN 11, creatinine 0.8, estimated GFR was 71 mL per minute. Her urine culture has grown 50,000-100,000 colony forming units per mL of Escherichia coli sensitive to piperacillin and tazobactam. ASSESSMENT: 1. Right gluteal decubitus ulcer with surrounding cellulitis. 2. Urinary incontinence and urinary tract infection. 3. Intertriginous candidiasis involving skin folds under the breasts, vulvovaginal area, both groins has largely subsided. 4. She has severe osteoporosis, osteoarthritis, lumbar spinal stenosis. 5. She has fixed flexion contraction of both lower extremities. 6. Poor mobility. She is mostly bed bound, wheelchair bound. PLAN: To continue with pain medication. Continue with IV antibiotic. Continue with wound care. The patient was accepted at [facility]. Unfortunately, there are no beds available today. Hopefully, will be discharged there tomorrow. YESICA SCHMIDT MD DR: PATSY/riley JOB#: [id number] / [id number]
[2019-08-12 23:00] VITALS: BP 109/70
[2019-08-13] MEDS: PIPERACILLIN/TAZOBACTAM 4.5 GM in IV NORMAL SALINE 50ML 50 ML IV SCH ×2 (00:56→09:49)
[2019-08-13 05:49] VITALS: BP 160/94
[2019-08-13 07:24] LABS: CREATININE 0.8 mg/dL (0.6-1.0); GFR 71.5
[2019-08-13] MEDS: NYSTATIN TOPICAL POWDER 15GM BOTTLE. TP SCH (09:00)
[2019-08-13] MEDS: DICLOFENAC SODIUM 1% TOPICAL GEL 100GM TUBE. TP SCH ×2 (09:00→12:00)
[2019-08-13] MEDS: FAMOTIDINE 20 MG TABLET PO SCH (09:48)
[2019-08-13] MEDS: amLODIPine BESYLATE 5 MG TABLET PO SCH (09:49)
[2019-08-13] MEDS: POTASSIUM CHLORIDE 10 MEQ TABLET.ER. PO SCH (09:49)
[2019-08-13] MEDS: LACTOBACILLUS RHAMNOSUS GG 1 CAPSULE. PO SCH (09:49)
[2019-08-13] MEDS: LISINOPRIL 20 MG TABLET PO SCH (09:50)
[2019-08-13] MEDS: MELOXICAM 15 MG TABLET. PO SCH (09:50)
[2019-08-13] MEDS: busPIRone 10 MG TABLET. PO SCH ×2 (10:00→11:59)
[2019-08-13 11:10] VITALS: BP 169/94
[2019-08-13] MEDS: VANCOMYCIN 1 GM in IV NORMAL SALINE 250ML 250 ML IV SCH (11:59)
[2019-08-13] MEDS: HYDROcodone/APAP 5/325MG 1 TAB TABLET PO PRN (12:00)
--- NOTE | 2019-08-13 14:19 | DS ---
DATE OF DISCHARGE: 08/07/2019 HOSPITAL COURSE: The patient is a 68-year-old female patient who came yet again with another episode of right gluteal decubitus ulcer and surrounding cellulitis, urinary incontinence, urinary tract infection as well as intertriginous candidiasis, poor mobility with fixed flexion contraction of both lower extremities. She was seen by wound care team and was started on IV antibiotic. It was felt the patient will benefit from wound care, antibiotic therapy, nutritional support as well as physical and occupational therapy and therefore a decision was made to transfer her to [facility] to continue with wound care, antibiotic therapy, nutritional support as well as physical and occupational therapy. PHYSICAL EXAMINATION: GENERAL: I saw her today. She looked well and was clearly in no apparent respiratory distress. No pallor, jaundice, cyanosis or thyromegaly. No jugular venous distention or lower limb edema. VITAL SIGNS: His heart rate was 76, blood pressure was 169/94, temperature was 97.9, respiratory rate was 18 and oxygen saturation was 96%. HEAD, EYES, EARS, NOSE AND THROAT: Showed normocephalic, atraumatic. NECK: Supple. HEART: Showed normal first and second heart sounds. No gallop or murmur. CHEST: Clear to auscultation. No crepitation or rhonchi. ABDOMEN: Distended, soft, nontender. NEUROLOGIC: She was awake, alert, responding appropriately. All cranial nerves intact. EXTREMITIES: She moves upper extremities to much good extent than lower extremities. She is mostly bedbound, chair bound. She has fixed flexion contraction of both lower extremities. She has right gluteal decubitus ulcer stage 2-3, surrounding cellulitis. She has an indwelling Alex catheter. Her intake over the last 24 hours was 1600, output was 2650. LABORATORY DATA: This morning showed creatinine 0.8 and estimated GFR was 71 mL per minute. Her sodium 141, potassium 3.6, chloride 106, bicarbonate 27, anion gap of 8, BUN 11. Her white cell count was 9300, hemoglobin 10, hematocrit 32, MCV 85, and platelet count 360,000. Sedimentation rate was 40 mmHg and C-reactive protein was 45 mg/dL. DISCHARGE MEDICATIONS: She was discharged to [facility] to continue on baclofen 10 mg at bedtime, buspirone 10 mg 4 times a day, Santyl ointment applied topically daily for her wound, Aricept 10 mg once a day, diclofenac sodium, Voltaren gel twice a day, famotidine 20 mg once a day, lisinopril 20 mg once a day, meloxicam 15 mg once a day, mirtazapine 15 mg at bedtime, potassium chloride 10 mEq daily and nystatin powder apply topically twice a day. She was also discharged to continue on vancomycin as well as piperacillin and tazobactam. FINAL DISCHARGE DIAGNOSES: 1. Right gluteal decubitus ulcer with surrounding cellulitis. 2. Urinary incontinence, urinary tract infection with growth of more than 100,000 colony forming units per mL of Escherichia coli, intertriginous candidiasis involving skin folds under the breast, vaginal area and both groins, largely subsided. 3. Severe osteoporosis, osteoarthritis and lumbar spinal stenosis, very poor mobility due to fixed flexion contraction of both lower extremities. The patient is mostly bed bound, wheelchair bound. YESICA SCHMIDT MD DR: PATSY/riley JOB#: [id number] / [id number]
== END 2019-08-13 03:45 | DRG 602 ==
LOC: ER 10:45 → 1 SOUTH 13:50 → INTOOBSV 13:50 → ER 14:50 → OBSVTOIN 15:18
PROVIDERS: ADMIT Internal Medicine; ATTEND Internal Medicine
DX: L03.317 Cellulitis of buttock (principal); L89.313 Pressure ulcer of right buttock, stage 3; N39.0 Urinary tract infection, site not specified; R65.10 Systemic inflammatory response syndrome (SIRS) of non-infectious origin without acute organ dysfunction; B96.20 Unspecified Escherichia coli [E. coli] as the cause of diseases classified elsewhere; E87.6 Hypokalemia; M16.0 Bilateral primary osteoarthritis of hip; M17.0 Bilateral primary osteoarthritis of knee; M24.50 Contracture, unspecified joint; M48.061 Spinal stenosis, lumbar region without neurogenic claudication; M81.0 Age-related osteoporosis without current pathological fracture; Z99.3 Dependence on wheelchair; Z74.01 Bed confinement status; R32 Unspecified urinary incontinence; B37.9 Candidiasis, unspecified
CPT/HCPCS: 36415; 36569; 70450; 71045; 72170; 73552; 73560; 80048; 80053; 80202; 81001; 82565; 83735; 84484; 85027; 85651; 86140; 87086; 87186; 93005; 96361; 96365; G0379; J2543; J3370; J7040; J7050; 97110; 97530; 97535; 99285-25; J7030

== ENCOUNTER 2019-10-30 13:52 | Emergency (ER) | payer MEDICARE ==
[~2019-10-30] VITALS: Ht 154.9 cm; Wt 68.0 kg
[~2019-10-30 13:52] MED LIST changes: +DONE10TA7 PO; +MIRT15TA3 PO; +NITR100C62 PO; +POTA10TA PO
--- NOTE | 2019-10-30 14:24 | PHYS DOC ---
Past History Past Medical History: Arthritis, Dementia, Other Additional Past Medical Histor: hip fracture, RECENT HYPOKALEMIA Past Surgical History: Appendectomy Alcohol Use: None Drug Use: None Adult General Chief Complaint Chief Complaint: WEAKNESS/GENERALIZED HPI HPI Patient is a 69-year-old female who is brought to the ER by EMS secondary to reported auditory and visual hallucinations. The patient presents and she is extremely dirty covered in fecal material. She is undressed by ED staff and she has extensive pressure ulcers on her buttocks and erythema on both posterior thighs and there is also an ulcer on the dorsal aspect of the right foot. Patient is obviously not being taken care of at home. She is alert and oriented for us. Review of Systems Review of Systems Constitutional: Denies fever or chills [] Eyes: Denies change in visual acuity, redness, or eye pain [] HENT: Denies nasal congestion or sore throat [] Respiratory: Denies cough or shortness of breath [] Cardiovascular: No additional information not addressed in HPI [] GI: Denies abdominal pain, nausea, vomiting, bloody stools or diarrhea [] : Denies dysuria or hematuria [] Musculoskeletal: Denies back pain or joint pain [] Integument: Denies rash or skin lesions [] Neurologic: Denies headache, focal weakness or sensory changes [] Endocrine: Denies polyuria or polydipsia [] All other systems were reviewed and found to be within normal limits, except as documented in this note. Allergies Allergies Allergies Coded Allergies Type Severity Reaction Last Updated Verified No Known Drug Allergies 07/18/16 No Physical Exam Physical Exam Constitutional: Well developed, extremely dirty and not taking care of HENT: Normocephalic, atraumatic, bilateral external ears normal, oropharynx moist, no oral exudates, nose normal. [] Eyes: PERRLA, EOMI, conjunctiva normal, no discharge. [] Neck: Normal range of motion, no tenderness, supple, no stridor. [] Cardiovascular:Heart rate regular rhythm, no murmur [] Lungs & Thorax: Bilateral breath sounds clear to auscultation [] Abdomen: Bowel sounds normal, soft, no tenderness, no masses, no pulsatile masses. [] Skin: Warm, extensive areas covered in fecal material. There is extensive pressure ulcers of the patient's buttocks and sacrum area. There is erythema extensively to the posterior thighs bilaterally. There is a pressure ulcer on the dorsal aspect of the right foot that is approximately 3 cm in diameter. Back: No tenderness, no CVA tenderness. [] Extremities: No tenderness, no cyanosis, no clubbing, ROM intact, 1+ bilateral lower extremity edema Neurologic: Alert and oriented X 3, normal motor function, normal sensory function, no focal deficits noted. EKG EKG [] Radiology/Procedures Radiology/Procedures [] Course & Med Decision Making Course & Med Decision Making Pertinent Labs and Imaging studies reviewed. (See chart for details) Patient is seen for reported visual and auditory hallucinations. She is not currently explained these signs or symptoms however she is extensively in need of some additional care. She appears to have cellulitis of both upper thighs posteriorly potentially with extensive pressure ulcers. She will need admission for cellulitis, pressure ulcer care, and social work consult for living conditions. 1554: Patient's work-up is complete and she does have some leukocytosis which is to be expected with her current condition. The rest of her labs are mostly unremarkable. She has been given IV Diflucan and clindamycin to cover for infection. We will start IV fluids at a low rate. Transfer to [place] for wound care and potential surgical consult if needed for debridement. Dragon Disclaimer Dragon Disclaimer This electronic medical record was generated, in whole or in part, using a voice recognition dictation system. Departure Departure: Impression: Primary Impression: Pressure ulcer Additional Impressions: Cellulitis of buttock Weakness Disposition: 02 XFER SHT-TRM HOSP (Transfer to [place]) Condition: STABLE Referrals: MEAGAN HAYES MD (PCP) Problem Qualifiers SATNAM STOVER DO Oct 30, 2019 14:24
[2019-10-30] MEDS ORDERED: FLUCONAZOLE 200MG/100ML PREMIX 100 ML IV SCH (14:30)
[2019-10-30] MEDS ORDERED: IV NORMAL SALINE 500ML 500 ML IV ONE (14:30)
[2019-10-30] MEDS ORDERED: CLINDAMYCIN 600MG PREMIX 50 ML IV ONE (14:30)
[2019-10-30 15:25] LABS: BASO # 0.1 x10^3/uL (0.0-0.2); BASO % 1 % (0-3); EOS % 0 % (0-3); HEMOGLOBIN 10.1 g/dL (12.0-15.5); LYMPH % 9 % (24-48); MEAN CORPUSCULAR HEMOGLOBIN 26 pg (25-35); MEAN CORPUSCULAR HGB CONC 32 g/dL (31-37); MEAN CORPUSCULAR VOLUME 84 fL (79-100); MONO # 1.1 x10^3/uL (0.0-1.1); MONO % 10 % (0-9); NEUT % 81 % (31-73); PLATELET COUNT 591 x10^3/uL (140-400); RED BLOOD COUNT 3.81 x10^6/uL (3.50-5.40); RED CELL DISTRIBUTION WIDTH 16.5 % (11.5-14.5); WHITE BLOOD COUNT 11.1 x10^3/uL (4.0-11.0)
[2019-10-30 15:35] LABS: CALCIUM 9.1 mg/dL (8.5-10.1); CREATININE 0.8 mg/dL (0.6-1.0); GFR 71.3; POTASSIUM 3.8 mmol/L (3.5-5.1)
[2019-10-30 15:48] LABS: ALBUMIN 2.3 g/dL (3.4-5.0); ALBUMIN/GLOBULIN RATIO 0.6 (1.0-1.7); TOTAL BILIRUBIN 0.4 mg/dL (0.2-1.0); TOTAL PROTEIN 6.4 g/dL (6.4-8.2)
[2019-10-30] MEDS ORDERED: IV NORMAL SALINE 1,000ML 1,000 ML IV ONE (16:00)
[2019-10-30 16:17] LABS: BILIRUBIN,URINE NEG (NEG); CLARITY,URINE HAZY; COLOR,URINE AMBER; GLUCOSE,URINE NEG (NEG); NITRITE,URINE POS (NEG)
[2019-10-30 16:18] LABS: BACTERIA,URINE MANY /HPF (0-FEW); HYALINE CASTS, URINE FEW /HPF; SQUAMOUS EPITHELIAL CELL,UR MOD /LPF
[2019-10-30 16:30] VITALS: BP 126/55
== END 2019-10-30 17:05 | disposition short-term general hospital (02) ==
LOC: ER 13:52
DX: L03.317 Cellulitis of buttock (principal); L89.899 Pressure ulcer of other site, unspecified stage; R53.1 Weakness; R44.1 Visual hallucinations; R44.0 Auditory hallucinations; M19.90 Unspecified osteoarthritis, unspecified site; F03.90 Unspecified dementia, unspecified severity, without behavioral disturbance, psychotic disturbance, mood disturbance, and anxiety
CPT/HCPCS: 36415; 51702; 80053; 81001; 82550; 83605; 83880; 84443; 85025; 87086; 96365; 96367; 99285; J1450; J3490; J7040

== ENCOUNTER 2020-01-19 14:15 | Emergency (ER) | payer MEDICARE ==
[~2020-01-19] VITALS: Ht 154.9 cm; Wt 68.0 kg
[2020-01-19] MEDS ORDERED: DEXTROSE 50% 25 GM / 50ML DISP.SYRIN. IV ONE (14:30)
[2020-01-19 14:58] LABS: BASO # 0.1 x10^3/uL (0.0-0.2); BASO % 1 % (0-3); EOS # 0.1 x10^3/uL (0.0-0.7); EOS % 1 % (0-3); HEMATOCRIT 37.5 % (36.0-47.0); HEMOGLOBIN 12.4 g/dL (12.0-15.5); LYMPH # 1.3 x10^3/uL (1.0-4.8); LYMPH % 15 % (24-48); MEAN CORPUSCULAR HEMOGLOBIN 28 pg (25-35); MEAN CORPUSCULAR HGB CONC 33 g/dL (31-37); MEAN CORPUSCULAR VOLUME 86 fL (79-100); MONO # 0.7 x10^3/uL (0.0-1.1); MONO % 8 % (0-9); NEUT # 6.7 x10^3uL (1.8-7.7); NEUT % 76 % (31-73); PLATELET COUNT 424 x10^3/uL (140-400); RED BLOOD COUNT 4.36 x10^6/uL (3.50-5.40); RED CELL DISTRIBUTION WIDTH 16.4 % (11.5-14.5); WHITE BLOOD COUNT 8.9 x10^3/uL (4.0-11.0)
[2020-01-19 15:06] LABS: CREATININE 0.9 mg/dL (0.6-1.0); GFR 62.3; POTASSIUM 3.1 mmol/L (3.5-5.1)
[2020-01-19 15:12] LABS: ALBUMIN 3.2 g/dL (3.4-5.0); ALBUMIN/GLOBULIN RATIO 0.7 (1.0-1.7); TOTAL BILIRUBIN 0.2 mg/dL (0.2-1.0); TOTAL PROTEIN 7.8 g/dL (6.4-8.2)
[2020-01-19] MEDS ORDERED: POTASSIUM CHLORIDE 20 MEQ TABLET.ER. PO ONE (15:45)
[2020-01-19 17:12] LABS: CLARITY,URINE CLEAR; COLOR,URINE YELLOW; GLUCOSE,URINE 250 mg/dL (NEG)
[2020-01-19 17:13] LABS: AMORPHOUS SEDIMENT,UR PRESENT /HPF; BACTERIA,URINE FEW /HPF (0-FEW); BILIRUBIN,URINE NEG (NEG); HYALINE CASTS, URINE MOD /HPF; NITRITE,URINE NEG (NEG); SQUAMOUS EPITHELIAL CELL,UR FEW /LPF; UROBILINOGEN,URINE 0.2 mg/dL (0.2 mg/dL)
--- NOTE | 2020-01-19 17:19 | PHYS DOC ---
Past History Past Medical History: No Pertinent History Additional Past Medical Histor: hip fracture, RECENT HYPOKALEMIA Past Surgical History: No Surgical History Alcohol Use: None Drug Use: None General Adult EDM: Chief Complaint: MULTIPLE COMPLAINTS HPI: HPI: Patient is a 69-year-old female who arrives via EMS after receiving a welfare check confounding patient being down on the floor, wet, cold with hypoglycemia. EMS indicates that patient had a water leak from somewhere in the apartment and she was soaking wet. Blood sugar was 42 on their check. Patient recently had been admitted into [facility] and rehab but had checked out AMA. Dr. Tobias had requested a welfare check be performed and medics found patient in said condition. [] Review of Systems: Review of Systems: Constitutional: Denies fever or chills Respiratory: Denies cough or shortness of breath Cardiovascular: Denies chest pain or edema GI: Denies abdominal pain, nausea, vomiting or diarrhea Neurologic: Denies headache, focal weakness or sensory changes A full 10 point review of systems has been reviewed and is otherwise negative. Heart Score: Risk Factors: Risk Factors: DM, Current or recent (<one month) smoker, HTN, HLP, family history of CAD, obesity. Risk Scores: Score 0 - 3: 2.5% MACE over next 6 weeks - Discharge Home Score 4 - 6: 20.3% MACE over next 6 weeks - Admit for Clinical Observation Score 7 - 10: 72.7% MACE over next 6 weeks - Early Invasive Strategies Current Medications: Current Meds: Current Medications Medications (Trade) Dose Ordered Sig/Rustam Start Time Stop Time Status Last Admin Dose Admin Dextrose (Dextrose 50%-Water Syringe) 25 gm 1X ONCE 01/19/20 14:30 01/19/20 14:31 DC Potassium Chloride (Klor-Con) 40 meq 1X ONCE 01/19/20 15:45 01/19/20 15:46 DC Allergies: Allergies: Allergies Coded Allergies Type Severity Reaction Last Updated Verified No Known Drug Allergies 07/18/16 No Physical Exam: PE: Constitutional: Well developed, well nourished, no acute distress, non-toxic appearance. [] HENT: Normocephalic, atraumatic, bilateral external ears normal, oropharynx moist, no oral exudates, nose normal. [] Eyes: PERRLA, EOMI, conjunctiva normal, no discharge. [] Neck: Normal range of motion, no tenderness, supple, no stridor. [] Cardiovascular: Regular rate and rhythm r [] Lungs & Thorax: Bilateral breath sounds clear to auscultation [] Abdomen: Bowel sounds normal, soft, no tenderness, no masses, no pulsatile masses. [] Skin: Cool, moist, no erythema. [] Extremities: No tenderness, no cyanosis, no clubbing, ROM intact. [] Neurologic: Alert and oriented X 3, no focal deficits noted. [] Current Patient Data: Labs: Laboratory Tests Test 01/19/20 14:40 01/19/20 15:26 White Blood Count 8.9 x10^3/uL (4.0-11.0) Red Blood Count 4.36 x10^6/uL (3.50-5.40) Hemoglobin 12.4 g/dL (12.0-15.5) Hematocrit 37.5 % (36.0-47.0) Mean Corpuscular Volume 86 fL (79-100) Mean Corpuscular Hemoglobin 28 pg (25-35) Mean Corpuscular Hemoglobin Concent 33 g/dL (31-37) Red Cell Distribution Width 16.4 % (11.5-14.5) H Platelet Count 424 x10^3/uL (140-400) H Neutrophils (%) (Auto) 76 % (31-73) H Lymphocytes (%) (Auto) 15 % (24-48) L Monocytes (%) (Auto) 8 % (0-9) Eosinophils (%) (Auto) 1 % (0-3) Basophils (%) (Auto) 1 % (0-3) Neutrophils # (Auto) 6.7 x10^3uL (1.8-7.7) Lymphocytes # (Auto) 1.3 x10^3/uL (1.0-4.8) Monocytes # (Auto) 0.7 x10^3/uL (0.0-1.1) Eosinophils # (Auto) 0.1 x10^3/uL (0.0-0.7) Basophils # (Auto) 0.1 x10^3/uL (0.0-0.2) Sodium Level 146 mmol/L (136-145) H Potassium Level 3.1 mmol/L (3.5-5.1) L Chloride Level 110 mmol/L (98-107) H Carbon Dioxide Level 19 mmol/L (21-32) L Anion Gap 17 (6-14) H Blood Urea Nitrogen 19 mg/dL (7-20) Creatinine 0.9 mg/dL (0.6-1.0) Estimated GFR (Cockcroft-Gault) 62.3 BUN/Creatinine Ratio 21 (6-20) H Glucose Level 105 mg/dL (70-99) H Calcium Level 9.0 mg/dL (8.5-10.1) Total Bilirubin 0.2 mg/dL (0.2-1.0) Aspartate Amino Transferase (AST) 29 U/L (15-37) Alanine Aminotransferase (ALT) 18 U/L (14-59) Alkaline Phosphatase 92 U/L (46-116) Total Protein 7.8 g/dL (6.4-8.2) Albumin 3.2 g/dL (3.4-5.0) L Albumin/Globulin Ratio 0.7 (1.0-1.7) L Glucose (Fingerstick) 158 mg/dL (70-99) H EKG: EKG: [] Radiology/Procedures: Radiology/Procedures: [] Course & Med Decision Making: Course & Med Decision Making Pertinent Labs and Imaging studies reviewed. (See chart for details) [] Dragon Disclaimer: Dragon Disclaimer: This electronic medical record was generated, in whole or in part, using a voice recognition dictation system. Departure Departure: Impression: Primary Impression: Hypoglycemia Additional Impressions: Decubitus ulcer Qualified Codes: L89.90 - Pressure ulcer of unspecified site, unspecified stage Weakness Disposition: 03 XFER SNF Condition: GOOD Referrals: MEAGAN HAYES MD (PCP) Justification of Admission: Justification of Admission: Justification of Admission Dx: N/A LEXUS PENDLETON Jr. DO Jan 19, 2020 17:19
[2020-01-19 17:38] VITALS: BP 125/74
[2020-01-19] MEDS ORDERED: IV DEXTROSE 10% 500 ML IV ONE (18:05)
== END 2020-01-19 18:18 ==
LOC: ER 15:14
DX: E16.2 Hypoglycemia, unspecified (principal); L89.899 Pressure ulcer of other site, unspecified stage; R53.1 Weakness
CPT/HCPCS: 36415; 80053; 81001; 82947; 85025; 96365; 99285; J7060; 96374

== ENCOUNTER 2020-02-01 10:05 | Emergency (ER) | payer MEDICARE ==
[~2020-02-01] VITALS: Ht 154.9 cm; Wt 59.6 kg
[2020-02-01 10:39] LABS: BASO # 0.1 x10^3/uL (0.0-0.2); BASO % 1 % (0-3); EOS # 0.3 x10^3/uL (0.0-0.7); EOS % 5 % (0-3); HEMATOCRIT 41.7 % (36.0-47.0); HEMOGLOBIN 13.1 g/dL (12.0-15.5); LYMPH # 1.6 x10^3/uL (1.0-4.8); LYMPH % 25 % (24-48); MEAN CORPUSCULAR HEMOGLOBIN 28 pg (25-35); MEAN CORPUSCULAR HGB CONC 32 g/dL (31-37); MEAN CORPUSCULAR VOLUME 87 fL (79-100); MONO # 0.6 x10^3/uL (0.0-1.1); MONO % 10 % (0-9); NEUT # 3.6 x10^3uL (1.8-7.7); NEUT % 59 % (31-73); PLATELET COUNT 379 x10^3/uL (140-400); RED BLOOD COUNT 4.77 x10^6/uL (3.50-5.40); RED CELL DISTRIBUTION WIDTH 16.1 % (11.5-14.5); WHITE BLOOD COUNT 6.2 x10^3/uL (4.0-11.0)
--- NOTE | 2020-02-01 10:47 | PHYS DOC ---
Past History Past Medical History: Anxiety, Arthritis, GERD, Hypertension Additional Past Medical Histor: hip fracture, RECENT HYPOKALEMIA, STAGE 4 PRESSURE ULCER (BHANU DUARTE DO) Past Surgical History: No Surgical History (BHANU DUARTE DO) Alcohol Use: None Drug Use: None (BHANU DUARTE DO) General Adult EDM: Chief Complaint: PSYCH EVALUATION HPI: HPI: 69-year-old female presents via [facility] from [facility] with report of suicidal ideation. Patient reports has had thoughts for several years but denies any plan. Patient has become more depressed recently because her 's health has been declining. Patient reports she "cannot take care of him anymore or deal with his illness." Patient's spouse also lives at [facility]. Spouse was recently admitted to the hospital. Patient reportedly has been refusing food and her medications. Patient denies any chest pain, shortness of air, cough, abdominal pain, nausea/vomiting, or dysuria. No fever reported. (BHANU DUARTE DO) Review of Systems: Review of Systems: Constitutional: Denies fever or chills Eyes: Denies redness or eye pain HENT: Denies nasal congestion or sore throat Respiratory: Denies cough or shortness of breath Cardiovascular: Denies chest pain or palpitations GI: Denies abdominal pain, nausea, or vomiting : Denies dysuria or hematuria Integument: Denies rash or skin lesions Neurologic: Denies headache, focal weakness or sensory changes Psychiatric: Reports suicidal ideation and depression Complete systems were reviewed and found to be within normal limits, except as documented in this note. (BHANU DUARTE DO) Allergies: Allergies: Allergies Coded Allergies Type Severity Reaction Last Updated Verified No Known Drug Allergies 07/18/16 No (BHANU DUARTE DO) Physical Exam: PE: Constitutional: Well developed, well nourished, no acute distress, non-toxic appearance HENT: Normocephalic, small yellow near healed ecchymosis to forehead Eyes: PERRL, EOMI, conjunctiva normal, no discharge, no nystagmus Neck: Normal range of motion, no tenderness, supple Lungs & Thorax: No respiratory distress, equal chest rise and fall Abdomen: Soft, no tenderness, no guarding/rebound tenderness/distention Skin: Warm, dry, no erythema, no rash, healing Stage II right buttocks decubitous ulceration with clean edges, no surrounding erythema or concern for active infection Extremities: No tenderness, ROM intact, no edema Neurologic: Alert and oriented X 3, normal motor function, normal sensory function, no focal deficits noted Psychologic: Affect depressed/flat, judgment abnormal, reports suicidal ideation without plan (BHANU DUARTE DO) Current Patient Data: Vital Signs: Vital Signs Date Time Temp Pulse Resp B/P (MAP) Pulse Ox O2 Delivery O2 Flow Rate FiO2 02/01/20 10:15 98.6 80 20 130/72 (91) 96 Room Air (BHANU DUARTE DO) EKG: EKG: @1121 NSR at 60bpm, NO ST elevation, QRS 68ms, QT/QTc 400/400ms (BHANU DUARTE DO) Radiology/Procedures: Radiology/Procedures: PROCEDURE: CHEST AP ONLY AP chest. HISTORY: Cough AP view was taken of the chest. Patient is mildly rotated to the right. Lungs are free of infiltrates. Heart is normal in size. There is no pleural effusion. There is deformity of the right humerus from an old fracture. IMPRESSION: 1. No acute chest disease. Electronically signed by: Moe Barajas MD (02/01/2020 10:42 AM) [id number] (BHANU DUARTE DO) Radiology/Procedures: [place] [address] IMAGING REPORT Signed PATIENT: RAINA TRIPATHI ACCOUNT: [id number] : 1950 LOCATION: ER AGE: 69 SEX: F EXAM STATUS: REG ER ORD. PHYSICIAN: BHANU DUARTE DO REASON: cough PROCEDURE: CHEST AP ONLY AP chest. HISTORY: Cough AP view was taken of the chest. Patient is mildly rotated to the right. Lungs are free of infiltrates. Heart is normal in size. There is no pleural effusion. There is deformity of the right humerus from an old fracture. IMPRESSION: 1. No acute chest disease. Electronically signed by: Moe Barajas MD (02/01/2020 10:42 AM) [id number] DICTATED AND SIGNED BY: MOE BARAJAS MD DATE: 02/01/20 1042 CC: MEAGAN HAYES MD; BHANU DUARTE DO ~ (ALEN GARCIA MD) Course & Med Decision Making: Course & Med Decision Making Pertinent Labs and Imaging studies reviewed. (See chart for details) Patient presents from [facility] with report of suicidal ideation. Patient has inability to ambulate and is wheelchair-bound. Patient reports because her is very sick she can no longer deal with his illnesses and therefore has started to have thoughts of hurting herself. Patient denies any plan. Reports symptoms have been ongoing for the past 2 weeks. Patient reportedly has been refusing food and medications at the [facility]. Patient reportedly also with similar type of thoughts for the past several years without any attempts. Labs obtained and posted to chart. EKG stable. Chest x-ray without acute process. Of note: UA with microscopic hematuria which is more likely secondary to requirement of straight cath sample 1140- Patient medically cleared for psychiatric evaluation. Await recommendation. 1300- Tele-psych evaluation performed with recommendation for inpatient psychiatric services. Several sites reporting they will need a negative COVID swab prior to acceptance. COVID therefore obtained. 1800- Sign out given to Dr. Garcia, for further evaluation and final disposition. Discussed current findings and plan with patient, who acknowledges understanding and agreement. (BHANU DUARTE DO) Course & Med Decision Making See Dr. Spain report . See Tele Psych report. Awaiting placement and COVID results. 1800 hrs.. Pt. sleeping interment and watching TV. Awaiting COVID result. Checkout to Dr. Rosales at 0600 hrs. (ALEN GARCIA MD) Course & Med Decision Making The patient has been accepted for transfer and admission to [facility] [place] [place]. She will go by ambulance. (WOJCIECH ROSALES DO) Dragon Disclaimer: Dragon Disclaimer: This electronic medical record was generated, in whole or in part, using a voice recognition dictation system. (BHANU DUARTE DO) Departure Departure: Impression: Primary Impression: Depression with suicidal ideation Disposition: 65 XFER TO PSYCH HOSP/UNIT Condition: STABLE Referrals: MEAGAN HAYES MD (PCP) Justification of Admission: Justification of Admission: Justification of Admission Dx: Yes Comments: Requiring inpatient psychiatric admission for depression and suicidal ideation (BHANU DUARTE DO) Justification of Admission Dx: N/A (ALEN GARCIA MD) Justification of Admission Dx: N/A (WOJCIECH ROSALES DO) Valerio Disclaimer This chart was dictated in whole or in part using Voice Recognition software in a busy, high-work load, and often noisy Emergency Department environment. It may contain unintended and wholly unrecognized errors or omissions. (ALEN GARCIA MD) BHANU DUARTE DO Feb 01, 2020 10:47 ALEN GARCIA MD Feb 01, 2020 19:04 WOJCIECH ROSALES DO Feb 02, 2020 15:45
[2020-02-01 10:53] LABS: CALCIUM 9.2 mg/dL (8.5-10.1); CREATININE 0.8 mg/dL (0.6-1.0); GFR 71.3; POTASSIUM 4.4 mmol/L (3.5-5.1)
[2020-02-01 11:10] LABS: ALBUMIN 3.4 g/dL (3.4-5.0); ALBUMIN/GLOBULIN RATIO 0.8 (1.0-1.7); MAGNESIUM 2.2 mg/dL (1.8-2.4); TOTAL BILIRUBIN 0.3 mg/dL (0.2-1.0); TOTAL PROTEIN 7.7 g/dL (6.4-8.2)
[2020-02-01 11:19] LABS: SALIC < 2.8 mg/dL (2.8-20.0)
[2020-02-01 11:20] LABS: ACETAMIN < 2.0 mcg/mL (10-30)
[2020-02-01 11:25] LABS: BARBITURATES NEG (NEG); BENZODIAZEPINES NEG (NEG); CANNABINOIDS NEG (NEG); COCAINE NEG (NEG); METHADONE NEG (NEG); OPIATES NEG (NEG); PHENCYCLIDINE NEG (NEG)
[2020-02-01 11:28] LABS: BACTERIA,URINE 0 /HPF (0-FEW); BILIRUBIN,URINE NEG (NEG); CLARITY,URINE CLEAR; COLOR,URINE STRAW; GLUCOSE,URINE NEG (NEG); NITRITE,URINE NEG (NEG); SQUAMOUS EPITHELIAL CELL,UR MOD /LPF; UROBILINOGEN,URINE 0.2 mg/dL (0.2 mg/dL)
[2020-02-01 11:32] LABS: AMPHETAMINE/METHAMPHETAMINE NEG (NEG)
--- NOTE | 2020-02-01 21:24 | EKG ---
[address] [address] Test Date: 2020-02-01 Test Time: 11:21:06 Pat Name: RAINA TRIPATHI Department: Room: Gender: F Solderer Dipper: : 1950 Requested By: BHANU DUARTE Order Number: [id number] Reading MD: Dylan Ruth MD Measurements Intervals [place] Rate: 60 P: 38 AR: 148 QRS: -54 QRSD: 68 T: 59 QT: 400 QTc: 400 Interpretive Statements SINUS RHYTHM LAD CONSIDER PRIOR INFERIOR INFARCT Electronically Signed On 02-23-2020 9:56:52 CDT by Dylan Ruth MD
[2020-02-02 15:50] VITALS: BP 136/87
== END 2020-02-02 15:56 ==
LOC: ER 10:05
DX: F32.9 Major depressive disorder, single episode, unspecified (principal); Z03.818 Encounter for observation for suspected exposure to other biological agents ruled out; R45.851 Suicidal ideations; M19.90 Unspecified osteoarthritis, unspecified site; F41.9 Anxiety disorder, unspecified; K21.9 Gastro-esophageal reflux disease without esophagitis; I10 Essential (primary) hypertension
CPT/HCPCS: 36415; 71045; 80053; 80307; 80329; 81001; 82553; 83735; 84484; 85025; 93005; 99285; C9803; G0480; U0003; 87426